=== PATIENT | female | born 1950 | race Caucasian/White ===

== ENCOUNTER 2023-06-25 11:10 | Outpatient (CLI) | payer MEDICARE, MEDICAID, SELFPAY ==
[2023-06-25 19:00] LABS: Alanine Aminotransferase 15 U/L (12-78); Albumin Level 4.4 g/dl (3.5-5.0); Albumin/Globulin Ratio 1.8 (1.1-1.8); Alkaline Phosphatase 70 U/L (38-126); Anion Gap 11.5 mEq/L (5-15); Aspartate Amino Transferase 27 U/L (14-36); Bilirubin,Total 0.4 mg/dl (0.2-1.3); Blood Urea Nitrogen 15 mg/dl (7-17); Calcium 9.5 mg/dl (8.4-10.2); Carbon Dioxide 29 mmol/L (22.0-30.0); Chloride 91 mmol/L (98-107); Estimated Glomerular Filt Rate 54 ml/min (>60); GFR (African American) 66 ML/MIN (>60); Globulin 2.5 g/dL (1.3-3.2); Glucose 94 mg/dl (74-100); Potassium 3.5 mmoL/L (3.5-5.1); Sodium 128 mmol/L (136-145); Total Protein,Serum 6.9 g/dl (6.3-8.2)
[2023-06-25 19:26] LABS: Thyroid Stimulating Hormone 0.98 uIU/mL (0.465-4.68)
== END 2023-06-25 23:59 | disposition home or self-care (01) ==
LOC: LAB.DROPOF 06-26 11:11
PROVIDERS: PCP Family Medicine; Visit Provider Family Medicine
DX: R30.0 Dysuria (principal); R53.83 Other fatigue
CPT/HCPCS: 80053; 84443

== ENCOUNTER 2023-12-21 10:12 | Outpatient (CLI) | payer MEDICARE, MEDICAID, SELFPAY | END 2023-12-21 23:59 | disposition home or self-care (01) | LOC: LAB.DROPOF 12-22 10:13 | PROVIDERS: PCP Nurse Practitioner; Visit Provider Nurse Practitioner | DX: A49.9 Bacterial infection, unspecified (principal); N39.0 Urinary tract infection, site not specified | CPT/HCPCS: 87086; 87088; 87186 ==

== ENCOUNTER 2024-01-29 09:27 | Outpatient (CLI) | payer MEDICARE, MEDICAID, SELFPAY ==
[2024-01-29 18:19] LABS: Basophils % 0.9 % (0.1-2.0); Eosinophils # 0.1 K/mm3 (0.0-0.4); Eosinophils % 2.5 % (0.1-12.0); Hematocrit 29.2 % (37.0-47.0); Hemoglobin 9.9 g/dL (12.2-16.2); Lymphocytes # 1.6 K/mm3 (0.7-4.5); Lymphocytes % 30.5 % (10-50); Mean Corpuscular Hemoglobin 25.5 pg (27.0-31.2); Mean Corpuscular Volume 75.2 fl (81-99); Mean Platelet Volume 7.3 fl (7.4-10.4); Monocytes # 0.4 K/mm3 (0.1-1.0); Monocytes % 8.2 % (1.7-9.3); Neutrophils # 2.9 K/mm3 (1.8-7.8); Neutrophils % 57.9 % (37.0-80.0); Platelet Count 442 K/mm3 (142-424); Red Blood Count 3.88 M/mm3 (4.20-5.40); Red Cell Distribution Width 15.1 % (11.5-17.5); White Blood Count 5.1 K/mm3 (4.8-10.8)
[2024-01-29 18:54] LABS: Alanine Aminotransferase 11 U/L (12-78); Albumin/Globulin Ratio 2.1 (1.1-1.8); Alkaline Phosphatase 50 U/L (38-126); Anion Gap 13.6 mEq/L (5-15); Aspartate Amino Transferase 21 U/L (14-36); Bilirubin,Total 0.4 mg/dl (0.2-1.3); Blood Urea Nitrogen 24 mg/dl (7-17); Calcium 8.6 mg/dl (8.4-10.2); Carbon Dioxide 28 mmol/L (22.0-30.0); Chloride 84 mmol/L (98-107); Estimated Glomerular Filt Rate 49 ml/min (>60); GFR (African American) 59 ML/MIN (>60); Globulin 1.9 g/dL (1.3-3.2); Glucose 85 mg/dl (74-100); Potassium 3.6 mmoL/L (3.5-5.1); Sodium 122 mmol/L (136-145); Total Protein,Serum 5.9 g/dl (6.3-8.2)
[2024-01-29 19:24] LABS: Thyroid Stimulating Hormone 1.29 uIU/mL (0.465-4.68)
== END 2024-01-29 23:59 | disposition home or self-care (01) ==
LOC: LAB.DROPOF 02-01 09:27
PROVIDERS: PCP Family Medicine; Visit Provider Family Medicine
DX: E03.9 Hypothyroidism, unspecified (principal); N39.0 Urinary tract infection, site not specified; A49.9 Bacterial infection, unspecified
CPT/HCPCS: 80053; 84443; 85025

== ENCOUNTER 2024-06-29 13:15 | Outpatient (CLI) | payer MEDICARE, MEDICAID, SELFPAY | END 2024-06-29 23:59 | disposition home or self-care (01) | LOC: LAB.DROPOF 06-30 09:43 | PROVIDERS: PCP Family Medicine; Visit Provider Family Medicine | DX: R30.0 Dysuria (principal); N39.0 Urinary tract infection, site not specified; B96.20 Unspecified Escherichia coli [E. coli] as the cause of diseases classified elsewhere | CPT/HCPCS: 87086; 87088; 87186 ==

== ENCOUNTER 2024-09-29 05:01 | Inpatient (IN) | payer MEDICARE, MEDICAID, SELFPAY ==
[2024-09-29] VITALS (11 sets, daily range): BP systolic 114–130; BP diastolic 63–75; PULSE 62–80; RESP 14–18; TEMP 36.6–36.9; O2SAT 96–100; BMI 25.2; BMI 24.3
--- NOTE | 2024-09-29 05:00 | ECG_ITS ---
APPROVED REPORT Exam: Resting ECG HR:71 bpm ECG Measurements Heart Rate 71 AXES ID 157 P 80 QRSd 94 QRS -14 QT 383 T 54 QTc 406 Conclusion SINUS RHYTHM MINIMAL ST DEPRESSION [0.025+ mV ST DEPRESSION] BORDERLINE ECG UNCONFIRMED REPORT Electronically signed by : BRADEN DELUCA, 09/30/2024 01:05:25
--- NOTE | 2024-09-29 05:04 | XR_ITS ---
PROCEDURE INFORMATION: Exam: XR Chest Exam date and time: 09/29/2024 5:21 AM Age: 74 years old Clinical indication: Pain; Chest pressure; Additional info: Cp TECHNIQUE: Imaging protocol: Radiologic exam of the chest. Views: 1 view. COMPARISON: No relevant prior studies available. FINDINGS: Lungs: Low lung volumes. No edema or consolidation. Pleural spaces: No significant pleural effusions. No pneumothorax. Heart/Mediastinum: Cardiac size is normal. Thoracic atherosclerosis. Bones/joints: No acute bony abnormalities. Osteopenia. Degenerative changes. IMPRESSION: No acute findings.
--- NOTE | 2024-09-29 05:04 | ED_ITS ---
Discharge Plan Disposition Patient Disposition: Admitted Prescriptions Prescriptions: No Action albuterol sulfate 90 mcg/actuation HFA aerosol inhaler 2 puff inhalation QID PRN (Reason: shortness of breath or wheezing) Qty: 8.5 10RF Rx Instructions: please provide spacer and instruct esomeprazole magnesium 40 mg capsule,delayed release(DR/EC) 40 mg PO DAILY Qty: 90 3RF estradiol [Estrace] 0.01 % (0.1 mg/gram) cream 1 appful vaginal DAILY Qty: 42.5 10RF Rx Instructions: for 14 days Trelegy Ellipta 100-62.5-25 mcg blister with device 1 inh inhalation DAILY Qty: 60 10RF levothyroxine 50 mcg capsule 50 mcg PO DAILY Qty: 90 3RF pregabalin 150 mg capsule 150 mg PO Q8H Qty: 90 5RF furosemide [Lasix] 40 mg tablet 40 mg PO DAILY Qty: 60 4RF fenofibrate 54 mg tablet 54 mg PO DAILY Qty: 90 3RF prochlorperazine maleate [Compazine] 10 mg tablet 10 mg PO Q8H PRN (Reason: nausea and vomiting) Qty: 30 0RF sulfamethoxazole-trimethoprim [Bactrim DS] 800-160 mg tablet 1 tab PO BID Qty: 20 0RF clonazepam 0.5 mg tablet 0.5 mg PO HS Qty: 30 0RF Rx Instructions: administer 30 minutes before bedtime ondansetron 4 mg tablet,disintegrating 4 mg PO Q8H PRN (Reason: nausea and vomiting) Qty: 30 0RF fluphenazine HCl 10 mg tablet 10 mg PO DAILY Qty: 90 3RF divalproex 500 mg tablet extended release 24 hr 500 mg PO DAILY Qty: 90 3RF fluconazole 150 mg tablet 150 mg PO Q3D Qty: 2 0RF Referrals Follow up/Referrals: Provider,Referral, MD [Primary Care Provider, Medical] - See instructions Clinical Impressions Clinical Impression: Hyponatremia, Chest pain at rest Schizophrenia Qualifiers: Schizophrenia type: unspecified Qualified Code(s): F20.9 - Schizophrenia, unspecified Print Language Print Language: Wallisian Discharge ED Provider: Bg Reyes General Adult HPI General Chief complaint: Chest Pain Stated complaint: Chest Pain Time Seen by Provider: 09/29/24 05:03 History of Present Illness HPI narrative: 74-year-old female with history of schizophrenia, prior MA, heart failure, COPD presents for chest pain. Chest pains been ongoing for the last 12 hours or so. Radiating to the right arm. Reports nausea but no vomiting. Reports that she has been taking her medications as prescribed. Related Data Previous Rx's ?Medication ?Instructions ?Recorded albuterol sulfate 90 mcg/actuation 2 puff inhalation Q ID PRN 01/29/24 aerosol inhaler shortness of breath or wheez ing #8.5 grams esomeprazole magnesium 40 mg 40 mg PO DAILY #90 caps 1 03/30/23 capsule,delayed release estradiol 0.01% (0.1 mg/gram) 1 appful vaginal DAILY # 42.5 grams 01/29/24 vaginal cream (Estrace) fluticasone fur. 100 mcg-umeclid 1 inh inhalation LAYA Y #60 ea 01/29/24 62.5 mcg-vilant 25 mcg inhalat.powder (Trelegy Ellipta) ondansetron 4 mg disintegrating 4 mg PO Q8H PRN nausea and 05/05/24 tablet vomiting #30 tabs clonazepam 0.5 mg tablet 0.5 mg PO HS #30 tabs fenofibrate 54 mg tablet 54 mg PO DAILY #90 tabs 06/08 05/31 furosemide 40 mg tablet (Lasix) 40 mg PO DAILY #60 tab s 06/29/24 levothyroxine 50 mcg capsule 50 mcg PO DAILY #90 caps 06/29/24 pregabalin 150 mg capsule 150 mg PO Q8H #90 caps 06/29 prochlorperazine maleate 10 mg 10 mg PO Q8H PRN nausea and 06/29/24 tablet (Compazine) vomiting #30 tabs sulfamethoxazole 800 1 tab PO BID #20 tabs mg-trimethoprim 160 mg tablet (Bactrim DS) divalproex 500 mg tablet,extended 500 mg PO DAILY #90 tabs 07/05/24 release 24 hr fluphenazine HCl 10 mg tablet 10 mg PO DAILY #90 tabs 07/05/24 fluconazole 150 mg tablet 150 mg PO Q3D 2 doses #2 tab s 08/12/24 Allergies Allergy/AdvReac Type Severity Reaction Status Date / Time acetaminophen (From Tylenol) Allergy Unknown Verified 06/29/24 13:10 ibuprofen Allergy Unknown Verified 06/29/24 13:10 Penicillins Allergy Unknown Verified 06/29/24 13:10 [facility] Disclaimer: The information contained in this section may have been updated after the patient was seen, as this information can be updated by other users. Medical History Schizophrenia Surgical History S/P LEVY (total abdominal hysterectomy) History of surgery on upper extremity History of surgery on lower extremity Hx of knee surgery History of back surgery Family History Other Diabetes Social History (Updated 06/29/24 @ 13:11 by Shi Ayon MA) Smoking Status: Current every day smoker alcohol intake: never current occupational status: other Travel in the last 8 weeks?: None Other Medical History Have you received the Pneumonia Vaccine: No ROS Obtained: Yes All systems reviewed & no additional complaints except as documented Physical Exam General General appearance: alert and in no apparent distress Head Head exam: atraumatic and normocephalic Eye Eye exam: Present normal appearance, PERRL and EOMI ENT ENT exam: Present normal oropharynx and normal external ear exam Neck Neck exam: Present normal inspection and full ROM Chest Chest inspection: Present normal inspection and symmetric chest wall rise; Absent tenderness Respiratory Respiratory exam: Present normal lung sounds bilaterally; Absent respiratory distress Cardiovascular Cardiovascular exam: Present regular rate and normal rhythm Abdominal Exam Abdominal exam: Present soft; Absent distention, tenderness or guarding Extremities Exam Extremities exam: Present normal inspection and edema; Absent joint swelling Back Exam Back exam: Present normal inspection; Absent tenderness Neurological Exam Neurological exam: Present alert and oriented X3; Absent motor sensory deficit Psychiatric Psychiatric exam: Present normal affect and normal mood Skin Skin exam: Present warm, dry and normal color Lymphatic Lymphatic Findings: no adenopathy Medical Decision Making Medical Records Medical records reviewed: Yes I reviewed the patient's medical records. Screening: Per USPSTF and CDC recommendations, given the prevalence of disease in our region, it is our hospital?s policy to screen for HIV and viral Hepatitis for all patients aged 18 and over and those with ongoing risk factors. Perez Inquiry Pt receiving controlled substance: No Perez was queried for this patient: No Vital Signs: 09/29/24 05:02 09/29/24 05:09 09/29/24 05:31 Temperature 97.9 F Temperature Source Oral Pulse Rate 71 66 Pulse Rate [Right Radial] 71 Respiratory Rate 16 16 Blood Pressure 114/63 Blood Pressure [Right Arm] 130/66 Blood Pressure Mean [Right Arm] 87 Blood Pressure Source [Right Arm] Automatic Cuff Blood Pressure Position [Right Arm] Supine 02 Sat by Pulse Oximetry 98 99 Oxygen Delivery Method Room Air Room Air Lab Data Lab results reviewed: Yes I reviewed the patient's lab results. Lab Results 09/29/24 05:00: WBC 6.9, RBC 3.62 L, Hgb 8.5 L, Hct 26.2 L, MCV 72.4 L, MCH 23.5 L, MCHC 32.4, RDW 16.3, Plt Count 443 H, MPV 8.8, Neut % (Auto) 61.7, Lymph % (Auto) 25.9, [place] % (Auto) 9.1, Eos % (Auto) 2.6, Baso % (Auto) 0.4, Neut # (Auto) 4.3, Lymph # (Auto) 1.8, [place] # (Auto) 0.6, Eos # (Auto) 0.2, Baso # (Auto) 0.0, D-Dimer 0.48, Sodium 115 L, Potassium 3.4 L, Chloride 82 L, Carbon Dioxide 27, Anion Gap 9.4, BUN 19 H, Creatinine 0.90, Estimated Creat Clear 44, Estimated GFR 61, Est GFR ( Amer) 74, Glucose 91, Calcium 8.7, Magnesium 1.1 L, Total Bilirubin 0.7, AST 23, ALT 11 L, Alkaline Phosphatase 61, Troponin I < 0.01, NT-Pro-B Natriuret Pep 644 H, Total Protein 6.4, Albumin 4.1, Globulin 2.3, Albumin/Globulin Ratio 1.8, Lipase 154 09/29/24 05:00 09/29/24 05:00 Orders (Tests/Meds): ED MEDICATIONS Discontinued Medications Generic Name Dose Route Start Last Admin Trade Name Freq PRN Reason Stop Dose Admin Belladonna Alkaloids 60 ml 09/29/24 05:04 09/29/24 05:07 Belladonna Alkaloids 60 Ml Ml PO 09/29/24 05:05 60 ml ONCE ONE Administration Furosemide 40 mg 09/29/24 05:44 09/29/24 05:54 Furosemide 40mg/4ml Vial IV 09/29/24 05:45 40 mg ONCE ONE Administration ORDERS Category Date Time Status CXR --portable [XR chest portable] Stat Exams 09/29/24 05:04 Taken BNP [NT Pro Brain Natriuretic Pep.] Stat Lab 09/29/24 05:00 Completed Basic Metabolic Panel Q6H Lab 09/29/24 11:00 Ordered Basic Metabolic Panel Q6H Lab 09/29/24 17:00 Ordered Basic Metabolic Panel Q6H Lab 09/29/24 23:00 Ordered CBC w/Auto Diff [Complete Blood Count Auto Diff] Stat Lab 09/29/24 05:00 Completed CMP [Comprehensive Metabolic Panel] Stat Lab 09/29/24 05:00 Completed Complete Blood Count Auto Diff AMLAB Lab 09/30/24 06:00 Ordered Comprehensive Metabolic Panel AMLAB Lab 09/30/24 06:00 Ordered D-Dimer Stat Lab 09/29/24 05:00 Completed HIV Combo Stat Lab 09/29/24 05:00 Received Hepatitis C Ab Qual. W/ RFX Stat Lab 09/29/24 05:00 Received Lipase Stat Lab 09/29/24 05:00 Completed Lipase Stat Lab 09/29/24 05:55 Ordered Magnesium Stat Lab 09/29/24 05:00 Completed Sodium,Urine Random Stat Lab 09/29/24 05:54 Ordered Troponin I Q3H Lab 09/29/24 05:00 Completed Troponin I Q3H Lab 09/29/24 08:15 Ordered ECG Data Tracing #1: I reviewed this ECG and interpreted as documented below: Sinus rhythm, rate of 71, no obvious ST elevation, though baseline artifact limits interpretation ECG initial impression date: 09/29/24 ECG initial impression time: 05:00 HEART Score History (anamnesis): Moderately suspicious ECG: Non-specific disturbance Age: >65 years Risk factors: Atherosclerosis history Troponin: </= normal limit HEART Score: 6 Medical Decision Narrative: 74-year-old female with history of schizophrenia, COPD, heart failure, coronary artery disease presents for chest pain for the last 12 hours. History was obtained via interactive discussion with patient, EMS. On arrival, patient is [afebrile, hemodynamically stable, satting appropriately, alert, oriented x4, GCS 15], moving all extremities spontaneously. Full physical exam performed and significant for bilateral lower extremity edema, clear lungs bilaterally Differential includes but is not limited to ACS, PE, COPD exacerbation, musculoskeletal chest pain, GERD. Patient reports she is unable to take aspirin or Tylenol. She was given GI cocktail without improvement. Workup initiated including CBC CMP troponin D- dimer chest x-ray EKG. On re-evaluation, patient reports continued chest pain Laboratory workup independently interpreted by me and significant for hyponatremia at 115. Negative initial troponin, negative D-dimer, mildly elevated BNP, normal renal. Imaging independently interpreted by me and significant for clear lungs bilaterally without pneumonia. See radiology read for full review of final results. Given patient history, exam and workup, patient's presentation most likely represents acute on chronic hyponatremia with hypervolemia, high risk chest pain with heart score of 6. Interactive discussion was had with hospitalist on-call for admission. Patient was given Lasix in ED.. Procedures Risk/Benefits of Procedure(s) Were Explained: Yes Critical Care Critical Care Time Critical Care Time: No
[2024-09-29] MEDS: BELLADONNA ALKALOIDS 60 ML ML PO (05:07)
--- OUTSIDE RECORDS SUMMARY | 2024-09-29 05:19 | XMS_ITS | Clinical Summary ---
Author Organization [facility] are Address [address] [place] [id number] Phone Care Team Providers Care Waiter/Waitress Name Role Phone Liz Parks APRN Primary Care Physician [ ] Conditions or Problems No information available. Medications No information available. Medications Administered No information available. Allergies, Adverse Reactions, Alerts No information available. Results No information available. Plan of Care No information available. Procedures No information available. Vital Signs No information available. Immunizations No information available. Advance Directives No information available.
--- OUTSIDE RECORDS SUMMARY | 2024-09-29 05:20 | XMS_ITS | Clinical Summary ---
Author Organization [facility] Address [address] [place] [address] Phone Care Team Providers Care Street Vendor Name Role Phone Gage Mcconnell MD, Kari NP Primary Care Provider [phone] Allergies Active Allergy Reactions Criticality Noted Date Comments Celecoxib Nausea And Vomiting 04/21/2014 Pt refuses. States it caused severe nausea and vomiting Ibuprofen Hives 05/24/2018 Penicillins Hives High Medications * This document contains information received from the source organization and may not represent a complete record from that organization. AMLODIPINE BESYLATE, BULK, MISC 2.5 mg by [facility] [place].(Non-Drug; Combo Route) route daily. Active fUROsemide (LASIX) 80 mg tablet Take 1 Tab by mouth daily. 30 Tab 5 3 Active levothyroxine (SYNTHROID) 50 mcg tablet TAKE 1 TABLET BY MOUTH DAILY 30 Tab 2 3 Active fluPHENAZine (PROLIXIN) 10 mg Oral TabletIndications :Paranoid schizophrenia (HCC),Schizoaffec tive disorder, unspecified type (HCC) Take 1 tablet by mouth at bedtime 30 Tab 5 6 Active ondansetron (ZOFRAN ODT) 4 mg Oral Tablet, Rapid Dissolve Take 1 Tab by mouth every 4 hours as needed for Nausea. 10 Tab 0 6 Active Additional Information Patient not taking.Reason: Therapy Completed, Reported on 08/16/2018 Walker Misc Misc Use walker as needed 1 Each 6 Active divalproex (DEPAKOTE) 500 mg Oral Tablet, Delayed Release (E.C.)Indications :Paranoid schizophrenia (HCC),Schizoaffec tive disorder, unspecified type (HCC) TAKE ONE TABLET BY MOUTH WITH FOOD EVERY NIGHT AT BEDTIME 30 Tab 6 Active gabapentin (NEURONTIN) 300 mg Oral Capsule Take by mouth 3 times daily. Reported on 04/21/2016 Active cyclobenzaprine (FLEXERIL) 5 mg Oral Tablet Take 1 Tab by mouth 3 times daily as needed for Muscle spasms for up to 10 doses. 10 Tab 7 Active Additional Information Patient not taking.Reason: Pt electing to not take the medication, Reported on 08/17/2018 esomeprazole (NEXIUM) 20 mg Oral Capsule, Delayed Release(E.C.)Sheryl cations:heartburn Take 20 mg by mouth daily. Active omeprazole (PRILOSEC) 20 mg Oral Capsule, Delayed Release(E.C.) Take by mouth every morning (before breakfast). Active pregabalin (LYRICA ORAL) Take by mouth 3 times daily. Active MELOXICAM ORAL Take by mouth. Active FENOFIBRATE ORAL Take by mouth daily. Active calcium carbonate/vitamin D3 (VITAMIN D-3 ORAL) Take by mouth daily. Active oxyCODONE-acetami nophen (PERCOCET) 5-325 mg Oral Tablet Take 1-2 Tabs by mouth every 6 hours as needed for Major Surgery/Trauma (G89.18). 12 Tab 9 Active nicotine (NICODERM CQ) 21 mg/24 hr TD Patch [address] 1 Patch onto the skin daily. 9 Active Active Problems Patient Care Coordination No te Formatting of this note migh t be different from the original. MIRELA [id number] 08/23/18 Problem Noted Date Diagnosed Date Spinal stenosis of thoracic region 08/18/2018 Hypokalemia 08/18/2018 Abnormal urinalysis 08/18/2018 Cigarette nicotine dependenc e with nicotine-induced disorder 08/18/2018 Hyponatremia 08/17/2018 Weakness of both lower extremities 08/17/2018 Resting tremor 08/17/2018 Chest pain 11/18/2010 Overview (11/18/2010): Normal GXT 10/2010 Hypothyroid Menorrhagia Schizophrenia Osteoarthritis Craig's esophagus Arthritis DDD (degenerative disc disease) Herniated disc Resolved Problems Problem Noted Date Diagnosed Date Resolved Date Otitis media 10/07/2011 10/28/2011 Immunizations Immunization Administration Dates Next Due Influenza Patient Reported 01/07/2009 Influenza Vaccine, Unspecified Formulation 12/19 Pneumococcal Conjugate Vaccine 13 Valent 019 Tdap 03/09/2006 Zoster 11/15/2008 Surgical History Surgery Date Site/Laterality Comments HYSTERECTOMY COLONOSCOPY [address] bai CHOLECYSTECTOMY THYROID SURGERY LUMBAR DISC SURGERY 04/17/2011 Spine Lumbar/N/A LUMBAR LAMINECTOMY L4-5 ; Surgeon: Jose Laguna MD; Location: [facility] MAIN OR; Service: Neurosurgery WRIST SURGERY 07/13/2014 Wrist/Left Hand/Left LEFT DISTAL RADIUS OPEN REDUCTION INTERNAL FIXATION LEFT CARPAL TUNNEL RELEASE.; Surgeon: Gage Blair MD; Location: [facility]; Service: Hand Medical devices from this surgery are in the Medical Devices section. CARPAL TUNNEL RELEASE 07/13/2014 Hand/Left Surgeon: Gage Blair MD; Location: [facility]; Service: Hand Medical devices from this surgery are in the Medical Devices section. THORACIC LAMINECTOMY 08/18/2018 N/A t9-t10 thoracic laminectomy discectomy; Surgeon: Markel Gutierrez MD; Location: [facility] MAIN OR; Service: Neurosurgery Medical History Medical History Date Comments Osteoarthritis Arthritis DDD (degenerative disc disease) Hypothyroid Screening mammogram 2 years ago Heartburn Pneumonia years ago Unspecified sleep apnea Hypertension CHF (congestive heart failure) (HCC) Liver disease Hepatitis as a child Seizures (HCC) last seizure as a child Chronic kidney disease Schizoaffective disorder, chronic condition (HCC ) Other disorders of kidney and ureter Family History Medical History Relation Name Comments Cancer Father Diabetes Father Heart Disease Father Kidney Disease Father Other Maternal Grandmother Heart Disease Maternal Uncle Other Mother osteoporosis Heart Disease Paternal Uncle Relation Name Status Comments Father Maternal Grandfather Maternal Grandmother Maternal Uncle Mother Alive Paternal Grandfather Paternal Grandmother Paternal Uncle Social History Tobacco Use Types Packs/Day Years Used Date Smoking Tobacco: Every Day Cigarettes 1 59.1 Started: 08/20/1965 Smokeless Tobacco: Never Tobacco Cessation:Ready to Q uit: No Alcohol Use Standard Drinks/Week Comments No 0 (1 standard drink = 0.6 oz pur e alcohol) Sexually Active Control Partners Comments Not Currently Comments No Sex and Gender Information Value Date Recorded Sex Assigned at Not on file Legal Sex Female 5:04 PM EDT Gender Identity Not on file Sexual Orientation Not on file Obstetrics History Last Filed Vital Signs Vital Sign Reading Time Taken Comments Blood Pressure 155/72 01/23/2023 11:26 PM EST Pulse 79 01/23/2023 11:26 PM EST Temperature 36.4 C (97.6 F) 01/23/2023 11:26 PM EST Respiratory Rate 20 01/23/2023 11:26 PM EST Oxygen Saturation 99% 01/23/2023 11:26 PM EST Inhaled Oxygen Concentration - - Weight 72.6 kg (160 lb) 01/23/2023 11:26 PM EST Height 149.9 cm (4' 11 ) 01/23/2023 11:26 PM EST Body Mass Index 32.32 01/23/2023 11:26 PM EST Plan of Treatment Health Maintenance Due Date Last Done Comments Wellness Exam Medicare 1953 Hepatitis C Screening 1968 Cologuard 05/10/1995 FIT 05/10/1995 Sigmoidoscopy 05/10/1995 Virtual Colonography 05/10/1995 Low Dose Lung Cancer Screening 2000 Zoster (2 of 3) 01/10/2009 11/15/2008 Breast Cancer Screening 03/05/2014 03/05/20 12, 10/24/2010, 11/22/2008, Additional history exists Colon Cancer Screening 12/07/2019 Colonoscopy 12/07/2019 12/06/2009 COVID-19 Vaccine ( season) 2023 04/24/2021, 07/31/2020, 07/03/2020 Influenza Vaccine (#1) 2024 8, 01/07/2017, 01/07/2017, Additional history exists DTaP/TDaP/Td (4 - Td or Tdap) 09/10/2027 09/09/2017, 01/22/2007, 03/09/2006 Bone Density Screening Completed 02/02/2018 Pneumococcal Vaccine 50+ Completed 019, 02/15/2018, 01/07/2017 Hepatitis B Vaccine Aged Out No longe r eligible based on patient's age to complete this topic Meningococcal B Vaccine Aged Out No l onger eligible based on patient's age to complete this topic Medical Devices Implanted Type Area Instructional Coach Device Identifier Shelf Expiration Date Model / Serial / Lot Screw Cancellous 4.0mm X 35mm Full Threaded With 2.5mm Hexag - [id number] Implanted:Qty: 1 on 04/21/2014 by Theo Casey MD at [facility] Left: Knee SYNTHES-STRATEC: PFSweb [id number] / / Screw Cancellous 4.0mm X 40mm Full Threaded With 2.5mm Hexag - [id number] Implanted:Qty: 1 on 04/21/2014 by Theo Casey MD at [facility] Left: Knee SYNTHES-STRATEC: PFSweb [id number] / / Bone Cancellous 30cc Chips - [id number] Implanted:Qty: 1 on 07/13/2014 by Gage Blair MD at [facility] Left: Wrist SYNTHES-STRATEC: PFSweb 07/31/2017 [id number] / / [id number] Plate Radius Distal Volar Va Lcp 2.4mm 2 Column Left 6 Hole - [id number] Implanted:Qty: 1 on 07/13/2014 by Gage Blair MD at [facility] Left: Wrist SYNTHES-STRATEC: PFSweb [id number] / / Screw Locking 2.4mm X 12mm Self Tapping With Stardrive Recess Stainless Steel - [id number] Implanted:Qty: 2 on 07/13/2014 by Gage Blair MD at [facility] Left: Wrist SYNTHES-STRATEC: PFSweb [id number] / / Screw Locking 1.8mm X 16mm Va Buttress Pin With T8 Stardrive Recess - [id number] Implanted:Qty: 1 on 07/13/2014 by Gage Blair MD at [facility] Left: Wrist SYNTHES-STRATEC: PFSweb [id number] / / Screw Locking 1.8mm X 18mm Va Buttress Pin With T8 Stardrive Recess - [id number] Implanted:Qty: 5 on 07/13/2014 by Gage Blair MD at [facility] Left: Wrist SYNTHES-STRATEC: SYNTHES [facility] / / Description:3 implanted and 2 implanted and explanted. Screw Locking 1.8mm X 20mm Va Buttress Pin With T8 Stardrive Recess - [id number] Implanted:Qty: 1 on 07/13/2014 by Gage Blair MD at [facility] Left: Wrist SYNTHES-STRATEC: SYNTHES [facility] 0 / / Procedures Procedure Name Priority Date/Time Associated Diagnosis Comments DX BONE DENSITY AXIAL SKELETON Routine 02/02/2018 10:55 AM EST Osteoporosis, unspecified osteoporosis type, unspecified pathological fracture presence MM MAMMO DIGITAL SCREENING W CAD BILAT Routine 03/05/2012 8:22 AM EST Other screening mammogram [facility]ED COLONOSCOPY Routine 12/06/2009 12:0 0 AM EDT from Last 3 Months or Most Recently Relevant to Health Maintenance Results * DX BONE DENSITY AXIAL SKELETON (02/02/2018 10:55 AM EST) Anatomical Region Laterality Modality Dexa Scan 02/02/2018 Narrative 02/04/2018 3:58 PM EST Indication: The patient is presently being monitored while on treatment and requires a bone density assessment. Study was performed on [employer]. Bone Density: Region BMD T-score Z-score Femoral Neck (Left) 0.639 -1.9 -0.2 Total Hip (Left) 0.685 -2.1 -0.7 Femoral Neck (Right) 0.771 -0.7 1.0 Total Hip (Right) 0.701 -2.0 -0.6 1/3 Radius (Right) 0.613 -1.3 0.5 World Health Organization criteria for BMD interpretation classify patients as: Normal (T-score at or above -1.0), Low Bone Density (T-score between -1.0 and -2.5), or Osteoporotic (T-score at or below -2.5). T Scores are reported in Postmenopausal women and in men age 50 and older. Z-scores are reported in females prior to menopause and in males younger than age 50. 10-year Fracture Risk: FRAX not reported because: Treated for osteoporosis Clinical Information Provided by Patient: Has had a low trauma fracture. Smokes. Is being treated for osteoporosis. Has taken a prescription medication that prevents/treats osteoporosis in the last year. Has used or is currently using the following medications: Vitamin D, Diuretic, Depo-medrixyprogesterone, Thyroid medication Has had or currently has the following medical conditions: Back pain, Hip pain, Vitamin D Insufficiency, Depression Patient maximum height was 59 Menopause Age: 46 Patient is postmenopausal Interpretation: Bone mineral density is in the low bone density range. Medical evaluation for secondary causes of low bone mineral density may be appropriate. A minimum of two years may be required between bone density studies due to inherent testing precision limitations. Intervals between BMD testing should be determined according to each patient's clinical status: typically one year after initiation or change in therapy is appropriate, with longer intervals once therapeutic effect is established. The spine portion of the study is omitted due to hypertrophic change. Reported by: Evita Llamas PA-C, CCD on 02/03/2018 11:29:00 AM. us Alyson Salas MD IMG DEXA ORDERABLES Final Resu lt * MM MAMMO DIGITAL SCREENING W CAD BILAT (03/05/2012 8:22 AM EST) Anatomical Region Laterality Modality Breast Bilateral Mammography 03/05/2012 1:12 PM EST Impressions 03/05/2012 1:53 PM EST : No radiographic evidence of malignancy ([id number]) ~ RECOMMENDATION: Routine screening mammogram in 1 year. ~ * The patient with a palpable abnormality, unexplained by breast imaging, should be managed on clinical basis by the attending physician. * Breast imaging has a false negative rate of 15%. * The patient was notified by mail of the results of this examination. *The patient's information was entered into a reminder system with a target due date for the next mammogram. The mammogram was reviewed by a Radiologist and CAD. Narrative 03/05/2012 1:53 PM EST Procedure:MM MAMMO DIGITAL SCREENING W CAD BILAT ~ Reason for exam: screening (asymptomatic). ~ MM MAMMO DIG SCREEN CAD BILAT Bilateral CC and MLO view(s) were taken. There are scattered fibroglandular densities. No significant change Compared to prior studies the most recent being 10-24-10 ~ Procedure Note Gage Reddy MD - 03/05/2012 Procedure:MM MAMMO DIGITAL SCREENING W CAD BILAT ~ Reason for exam: screening (asymptomatic). ~ MM MAMMO DIG SCREEN CAD BILAT Bilateral CC and MLO view(s) were taken. There are scattered fibroglandular densities. No significant change Compared to prior studies the most recent being 10-24-10 ~ IMPRESSION: No radiographic evidence of malignancy ([id number]) ~ RECOMMENDATION: Routine screening mammogram in 1 year. ~ * The patient with a palpable abnormality, unexplained by breast imaging, should be managed on clinical basis by the attending physician. * Breast imaging has a false negative rate of 15%. * The patient was notified by mail of the results of this examination. *The patient's information was entered into a reminder system with atarget due date for the next mammogram. The mammogram was reviewed by a Radiologist and CAD. Javier Shell MD IMG MAMMOGRAPHY ORDERABLES Fin al Result * GMED COLONOSCOPY (12/06/2009 12:00 AM EDT) 12/06/2009 Impressions [facility] - 03/10/2012 10:02 AM EST Normal mucosa in the whole colon and terminal ileum (biopsy) Otherwise normal colonoscopy to terminal ileum Narrative [facility] - 03/10/2012 10:02 AM EST Performing Provider: Abdi Clemons MD Referring Provider: Tahnh Cheatham M.D. Abdi Clemons MD GI PROCEDURE ORDERABLES Fi nal Result [facility] [address] [address] from Last 3 Months or Most Recently Relevant to Health Maintenance Insurance [place] Member Subscriber Plan / Payer (Ef fective 2020-Present) Name:Loretta Trejowild Calles Relation to Subscriber:Self Name:Loretta Trejonnfiordaliza Calles Payer ID:Not on file Group ID:Not on file Type:Not on file Address: [address] MEDICARE ADVANTAGE HMO-POS * Guarantor: Destinee Trejo Account Type Relation to Patient Date of Phone Billing Address [place] Personal Family Self Advance Directives For more information, please contact: [phone] * Full Code (Latest Code Status on File) Date Activated Date Inactivated Comments 08/20/2018 11:21 AM 08/24/2018 9:07 PM * Full Code Date Activated Date Inactivated Comments 08/18/2018 5:30 PM 08/18/2018 9:01 PM * Full Code Date Activated Date Inactivated Comments 08/17/2018 10:22 PM 08/18/2018 5:30 PM * Full Code Date Activated Date Inactivated Comments 08/17/2018 7:29 PM 08/17/2018 10:[address] Vendor Relationship Specialty Start Date End Date Sarah Beth Cardoso NP [address] [place] [address] PCP - General Nurse Practitioner-Family 06/24/22 Gage Mcconnell MD Psychiatry & Neurology-Psychiatry 10/28/11
--- OUTSIDE RECORDS SUMMARY | 2024-09-29 05:20 | XMS_ITS | Encounter Summary ---
Author Organization [facility] Address [address] [place] [address] Care Team Providers Care Office Helper Name Role Phone Provider, Generic External Data Unavailable Unavailable Sarah Beth Cardoso NP Unavailable [phone] Shila Olson RN Unavailable Unavailable Sarah Beth Cardoso NP Primary Care Provider [phone] Reason for Visit * Reason Comments Medications Refill Encounter Details Date Type Department Care Team (Late st Contact Info) Description 07/23/2022 Refill [facility] Physicians - Primary Care, Ayde Hess [address], [place] [address] Sarah Beth Cardoso NP [address] [place] [address] [place] [address] Medications Refill Social History Tobacco Use Types Packs/Day Years Used Date Smoking Tobacco: Every Day Cigarettes 1 49.6 Started: 03/09/1975 Smokeless Tobacco: Never Alcohol Use Standard Drinks/Week Comments No 0 (1 standard drink = 0.6 oz pur e alcohol) PHQ-2 Answer Date Recorded PHQ-9 Auto Total 0 10/30/2021 Comments No Sex and Gender Information Value Date Recorded Sex Assigned at Not on file Legal Sex Female 5:20 PM EST Gender Identity Not on file Sexual Orientation Not on file documented as of this encounter Miscellaneous Notes * Telephone Encounter - Kimberlee Patrick MA - 07/23/2022 3:24 PM EDT Requested Prescriptions Pending Prescriptions Disp Refills ??? divalproex (DEPAKOTE) 500 mg Tablet Sustained Release 24 hr [Pharmacy Med Name: DIVALPROEX SOD ER 500 MG TA 500 Tablet] 90 Tablet 0 Sig: TAKE 1 TABLET (500 MG TOTAL) BY MOUTH DAILY. Last Office Visit:Apr 30-ck up Next Office Visit:10/31/2022-mpe Pending labs on file- Yes pended documented in this encounter Plan of Treatment Not on file documented as of this encounter Visit Diagnoses Diagnosis Vitamin D deficiency- Primary Schizophrenia, unspecified type Thyroid disease Unspecified disorder of thyroid Borderline hyperlipidemia Other and unspecified hyperlipidemia Osteoarthritis, unspecified osteoarthritis type, unspecified site Elevated serum creatinine Other nonspecific findings on examination of blood Thrombocytosis Essential thrombocythemia documented in this encounter Additional Health Concerns Assessment Noted Time PHQ-9 Depression Total Score: 1 10/31/19 2:37 PM EDT documented as of this encounter Care Teams Office Helper Relationship Specialty Start Date End Date Sarah Beth Cardoso NP [address] [place] [address] PCP - General Nurse Practitioner, Family 09/06/21 08/04/23 Provider, Generic External Data 08/13/20 Sarah Beth Cardoso NP [address] [place] [address] Nurse Practitioner Nurse Practitioner, Family 08/17/20 Shila Olson, RN Registered Nurse 10/01/20 documented as of this encounter
--- OUTSIDE RECORDS SUMMARY | 2024-09-29 05:20 | XMS_ITS | Encounter Summary ---
Author Organization [facility] Address [address] [place] [address] Care Team Providers Care Health And Safety Representative Name Role Phone Provider, Generic External Data Unavailable Unavailable Sarah Beth Cardoso NP Unavailable [phone] Shila Olson RN Unavailable Unavailable Sarah Beth Cardoso NP Primary Care Provider [phone] Reason for Visit * Reason Comments Medications Refill Encounter Details Date Type Department Care Team (Late st Contact Info) Description 04/15/2022 Refill [facility] Physicians - Primary Care, Ayde Hess [address], [place] [address] Sarah Beth Cardoso NP [address] [place] [address] [place] [address] Medications Refill Social History Tobacco Use Types [...] encounter Miscellaneous Notes * Telephone Encounter - Elida Lee RMA - 04/15/2022 5:37 PM EST Requested Prescriptions Pending Prescriptions Disp Refills ??? divalproex (DEPAKOTE) 500 mg Tablet Sustained Release 24 hr [Pharmacy Med Name: DIVALPROEX SOD ER 500 MG TA 500 Tablet] 90 Tablet 2 Sig: TAKE 1 TABLET (500 MG TOTAL) BY MOUTH DAILY. Last PE or Check up-10/30/2021 MPE Next PE or Check up-04/30/2022 6 MONTH F/U Pending labs on file- Yes documented in this encounter Plan of Treatment Not on file documented as of this encounter Visit Diagnoses Diagnosis Schizophrenia, unspecified type documented in this encounter Additional Health Concerns Assessment Noted Time PHQ-9 Depression Total Score: 1 10/31/19 2:37 PM EDT documented as of this encounter Care Teams Health And Safety Representative Relationship Specialty Start Date End Date Sarah Beth Cardoso NP [address] [facility], [place] [id number] PCP - General Nurse Practitioner, Family 09/06/21 08/04/23 Provider, Generic External Data 08/13/20 Sarah Beth Cardoso NP [address] [facility] [place] [address] Nurse Practitioner Nurse Practitioner, Family 08/17/20 Shila Olson, RN Registered Nurse 10/01/20 documented as of this encounter
--- OUTSIDE RECORDS SUMMARY | 2024-09-29 05:20 | XMS_ITS | Encounter Summary ---
Author Organization [facility] Address [address] [place] [address] Care Team Providers Care Director Clinical Research Name Role Phone Salome Naylor NP Primary Care Provider Unavailab le Provider, Generic External Data Unavailable Unavailable Sarah Beth Cardoso NP Unavailable [phone] Shila Olson RN Unavailable Unavailable Sarah Beth Cardoso NP Primary Care Provider [phone] Reason for Visit * Reason Comments Medications Refill Encounter Details Date Type Department Care Team (Late st Contact Info) Description 08/12/2020 Refill [facility] Physicians - Primary Care, Ayde Hess [address] [place] [address] Salome Naylor NP Medications Refill Social History Tobacco Use Types Packs/Day Years Used Date Smoking Tobacco: Every Day Cigarettes Smokeless Tobacco: Never Alcohol Use Standard Drinks/Week Comments No 0 (1 standard drink = 0.6 oz pur e alcohol) PHQ-2 Answer Date Recorded PHQ-2 Score 0 05/12/2019 Comments No Sex and Gender Information Value Date Recorded Sex Assigned at Not on file Legal Sex Female 5:20 PM EST Gender Identity Not on file Sexual Orientation Not on file COVID-19 Exposure Response Date Recorded In the last month, have you been in contact with someone who was confirmed or suspected to have Coronavirus / COVID-19? No / Unsure 08/13/2020 4:35 PM EDT documented as of this encounter Miscellaneous Notes * Telephone Encounter - Salome Naylor NP - 08/14/2020 10:52 AM EDT Needs a new CSA at next week isak reviewed * Telephone Encounter - Twila Jon RMA - 08/14/2020 10:26 AM EDT ISAK ON YOUR DESK * Telephone Encounter - Pippa Levin - 08/14/2020 8:46 AM EDT Isak 3 Narcotic agreement signed on 08.21.17 Last UDS 05.21.18 Last refill date 10.22.18 Last Appt/ Type Acute June, check up Nov, - Due Next Appt/Type August 17 - acute Labs on file no documented in this encounter Plan of Treatment Not on file documented as of this encounter Visit Diagnoses Diagnosis Myopathy Myopathy, unspecified Neuropathy Mononeuritis of unspecified site documented in this encounter Additional Health Concerns Assessment Noted Time PHQ-9 Depression Total Score: 1 05/12/19 20 10:37 AM EST documented as of this encounter Care Teams Director Clinical Research Relationship Specialty Start Date End Date Salome Naylor NP PCP - General Nurse Practitioner, Family 06/30/18 09/05/21 Sarah Beth Cardoso NP [address] [place] [place] [address] [place] [address] PCP - General Nurse Practitioner, Family 09/06/21 08/04/23 Provider, Generic External Data 08/13/20 Sarah Beth Cardoso NP [address] [facility] [address] Nurse Practitioner Nurse Practitioner, Family 08/17/20 Shila Olson, RN Registered Nurse 10/01/20 documented as of this encounter
--- OUTSIDE RECORDS SUMMARY | 2024-09-29 05:20 | XMS_ITS | Encounter Summary ---
Author Organization [facility] Address [address] [place] [address] Care Team Providers Care College Or University Department Head Name Role Phone Provider, Generic External Data Unavailable Unavailable Sarah Beth Cardoso WELFARE INTERVIEWER Unavailable [phone] Shila Olson RN Unavailable Unavailable Sarah Beth Cardoso NP Primary Care Provider [phone] Reason for Visit * Reason Comments Medications Refill Encounter Details Date Type Department Care Team (Late st Contact Info) Description 10/23/2022 Refill [facility] Physicians - Primary Care, [place]de [place] [address], [place] [address] Sheron Cox MD Medications Refill Social History Tobacco Use Types [...] encounter Miscellaneous Notes * Telephone Encounter - Twila Jon RMA - 10/23/2022 4:06 PM EDT Requested Prescriptions Pending Prescriptions Disp Refills ??? furosemide (LASIX) 40 mg tablet [Pharmacy Med Name: FUROSEMIDE 40 MG TAB 40 Tablet] 90 Tablet 2 Sig: TAKE 1 TABLET (40 MG TOTAL) BY MOUTH DAILY. Last Office Visit:Apr 30-CK UP Next Office Visit: 10-31-22- Pending labs on file- Yes documented in this encounter Plan of Treatment Not on file documented as of this encounter Visit Diagnoses Diagnosis Bilateral leg edema Edema documented in this encounter Additional Health Concerns Assessment Noted Time PHQ-9 Depression Total Score: 1 10/31/19 22 2:37 PM EDT documented as of this encounter Care Teams College Or University Department Head Relationship Specialty Start Date End Date Sarah Beth Cardoso, WELFARE INTERVIEWER [address] [place], [place] [id number] PCP - General Nurse Practitioner, Family 09/06/21 08/04/23 Provider, Generic External Data 08/13/20 Sarah Beth Cardoso, WELFARE INTERVIEWER [address] [facility] [place] [address] Nurse Practitioner Nurse Practitioner, Family 08/17/20 Shila Olson, RN Registered Nurse 10/01/20 documented as of this encounter
--- OUTSIDE RECORDS SUMMARY | 2024-09-29 05:20 | XMS_ITS | Encounter Summary ---
Author Organization [facility] Address [address] [place] [address] Care Team Providers Care Town Planner Name Role Phone Thanh Cheatham MD Primary Care Provider [phone] Salome Naylor NP Primary Care Provider Unavailab le Provider, Generic External Data Unavailable Unavailable Sarah Beth Cardoso NP Unavailable [phone] Shila Olson RN Unavailable Unavailable Sarah Beth Cardoso NP Primary Care Provider [phone] Encounter Details Date Type Department Care Team (Late st Contact Info) Description 09/13/2014 Orders Only Laboratory [address], [place] [address] Pippa Gordon [address] [place] [id number] Encounter for long-term (current) use of other medications (Primary Dx) Social History Tobacco Use Types Packs/Day Years Used Date Smoking Tobacco: Every Day Cigarettes Smokeless Tobacco: Never Alcohol Use Standard Drinks/Week Comments No 0 (1 standard drink = 0.6 oz pur e alcohol) Comments No Sex and Gender Information Value Date Recorded Sex Assigned at Not on file Legal Sex Female 5:20 PM EST Gender Identity Not on file Sexual Orientation Not on file documented as of this encounter Plan of Treatment Not on file documented as of this encounter Results * VALPROIC ACID, FREE (09/13/2014 8:11 PM EDT) Valproic Acid, Free 10.7 4.8 - 17.3 mg/L [facility] Comment: Note: Non-linear drug binding properties result in the fraction of Free Valproic Acid increasing as total drug increases. The free fraction may range from 5% to 25% for the total drug range of 30-160 mg/L. Test performed at [facility]/[address] [address] ANNA LENZ MD,PHD Serum 09/13/2014 8:11 PM EDT 09/16/2014 4:48 AM EDT us Referring Nonstaff MD HEMATOLOGY ORDERABLES Jaida l Result Performing Organization Address City/State/[facility] Co de Phone Number [facility] [address] documented in this encounter Visit Diagnoses Diagnosis Encounter for long-term (current) use of other medications- Primary documented in this encounter Care Teams Town Planner Relationship Specialty Start Date End Date Thanh Cheatham MD PCP - General Family Medicine 04/28/12 06/29/18 Salome Naylor NP PCP - General Nurse Practitioner, Family 06/30/18 09/05/21 Sarah Beth Cardoso NP [address] [place] [address] PCP - General Nurse Practitioner, Family 09/06/21 08/04/23 Provider, Generic External Data 08/13/20 Sarah Beth Cardoso NP [address] [place] [address] Nurse Practitioner Nurse Practitioner, Family 08/17/20 Shila Olson, RN Registered Nurse 10/01/20 documented as of this encounter
--- OUTSIDE RECORDS SUMMARY | 2024-09-29 05:20 | XMS_ITS | Encounter Summary ---
Author Organization [facility] Address [address] [place] [address] Care Team Providers Care Flight Dispatcher Name Role Phone Provider, Generic External Data Unavailable Unavailable Sarah Beth Cardoso NP Unavailable [phone] Shila Olson RN Unavailable Unavailable Sarah Beth Cardoso NP Primary Care Provider [phone] Reason for Visit * Reason Comments Medications Refill Encounter Details Date Type Department Care Team (Late st Contact Info) Description 09/16/2022 Refill [facility] Physicians - Primary Care, [place] [address] [place] [address] Sarah Beth Cardoso NP [address] [facility] [place] [address] Medications Refill Social History Tobacco Use Types [...] encounter Miscellaneous Notes * Telephone Encounter - Sarah Beth Cardoso NP - 09/16/2022 4:02 PM EDT Images from the original note were not included. Duplicate request - this is early Cancelled and will RX in alt encounter tomorrow when appropriate September 12, 2022 Me ?? 09/12/22 ??1:48 PM Note ?? RX early - last 06/21/2022 for 90 days Will RX Thursday (2d early) Needs UDS and CSA at next fill * Telephone Encounter - Kimberlee Patrick MA - 09/16/2022 3:17 PM EDT Requested Prescriptions Pending Prescriptions Disp Refills ??? 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 Neuropathy Mononeuritis of unspecified site documented in this encounter Additional Health Concerns Assessment Noted Time PHQ-9 Depression Total Score: 1 10/31/19 22 2:37 PM EDT documented as of this encounter Care Teams Flight Dispatcher Relationship Specialty Start Date End Date Sarah Beth Cardoso NP [address] [place] [address] PCP - General Nurse Practitioner, Family 09/06/21 08/04/23 Provider, Generic External Data 08/13/20 Sarah Beth Cardoso NP [address] [facility] [address] Nurse Practitioner Nurse Practitioner, Family 08/17/20 Shila Olson, RN Registered Nurse 10/01/20 documented as of this encounter
--- OUTSIDE RECORDS SUMMARY | 2024-09-29 05:20 | XMS_ITS | Encounter Summary ---
Author Organization [facility] Address [address] [place] [address] Care Team Providers Care Career Services Manager Name Role Phone Provider, Generic External Data Unavailable Unavailable Sarah Beth Cardoso NP Unavailable [phone] Shila Olson RN Unavailable Unavailable Sarah Beth Cardoso NP Primary Care Provider [phone] Reason for Visit * Reason Comments Medications Refill Encounter Details Date Type Department Care Team (Late st Contact Info) Description 12/18/2021 Refill [facility] Physicians - Primary Care, [place] [address] [place] [address] Suly Nichols, SENIOR COMPENSATION ANALYST [address] [place] [address] Medications Refill Social History Tobacco Use Types [...] Encounter - Sarah Beth Cardoso NP - 12/27/2021 1:28 PM EDT RF now appropriate, sent to pharm PDMP Report has been generated and reviewed by Suly Nichols APRN for this patient on 12/27/2021 * Telephone Encounter - Christine Toth - 12/26/2021 10:48 AM EDT Patient will be out tomorrow * Telephone Encounter - Sarah Beth Cardoso NP - 12/18/2021 9:36 PM EDT RF early, last 09/27 for 90 days * Telephone Encounter - Twila Jon RMA - 12/18/2021 1:40 PM EDT Requested Prescriptions Pending Prescriptions Disp Refills ??? 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 [facility] [place] [address] Nurse Practitioner Nurse Practitioner, Family 08/17/20 Shila Olson, RN Registered Nurse 10/01/20 documented as of this encounter
--- OUTSIDE RECORDS SUMMARY | 2024-09-29 05:20 | XMS_ITS | Encounter Summary ---
Author Organization [facility] Address [address] [place] [address] Care Team Providers Care Rod Finisher Name Role Phone Provider, Generic External Data Unavailable Unavailable Sarah Beth Cardoso NP Unavailable [phone] Shila Olson RN Unavailable Unavailable Sarah Beth Cardoso NP Primary Care Provider [phone] Reason for Visit * Reason Comments Medications Refill Encounter Details Date Type Department Care Team (Late st Contact Info) Description 09/01/2022 Refill [facility] Physicians - Primary Care, [place] [address], [place] [address] Sarah Beth Cardoso NP [address] [place] [address] Medications Refill Social History Tobacco Use Types [...] Telephone Encounter - Kimberlee Patrick MA - 09/01/2022 5:06 PM EDT Requested Prescriptions Pending Prescriptions Disp Refills ??? albuterol (VENTOLIN/PROAIR/PROVENTIL HFA) 90 mcg/actuation HFA Aerosol Inhaler [Pharmacy Med Name: ALBUTEROL SULFATE HFA 108 ( 108 (90 BAS Aerosol] 8.5 g 2 Sig: TAKE 2 PUFFS BY INHALATION EVERY 6 HOURS NEEDED FOR WHEEZING (SHORTNESS OF BREATH). Last Office Visit:Apr 30-ck up Next Office Visit:10/31/2022-mpe Pending labs on file- Yes documented in this encounter Plan of Treatment Not on file documented as of this encounter Visit Diagnoses Diagnosis Chronic obstructive pulmonary disease, unspecified COPD type ([facility]) documented in this encounter Additional Health Concerns Assessment Noted Time PHQ-9 Depression Total Score: 1 10/31/19 2:37 PM EDT documented as of this encounter Care Teams Rod Finisher Relationship Specialty Start Date End Date Sarah Beth Cardoso NP [address] [place] [address] PCP - General Nurse Practitioner, Family 09/06/21 08/04/23 Provider, Generic External Data 08/13/20 Sarah Beth Cardoso NP [address] [place] [address] Nurse Practitioner Nurse Practitioner, Family 08/17/20 Shila Olson, RN Registered Nurse 10/01/20 documented as of this encounter
--- OUTSIDE RECORDS SUMMARY | 2024-09-29 05:20 | XMS_ITS | Encounter Summary ---
Author Organization [facility] Address [address] [place] [address] Care Team Providers Care Brush Hand Name Role Phone Provider, Generic External Data Unavailable Unavailable Sarah Beth Cardoso DISTRICT MANAGER IN TRAINING Unavailable [phone] Shila Olson RN Unavailable Unavailable Sarah Beth Cardoso NP Primary Care Provider [phone] Reason for Visit * Reason Comments Medications Refill Encounter Details Date Type Department Care Team (Late st Contact Info) Description 10/23/2022 Refill [facility] Physicians - Primary Care, [place] [address] [place] [address] Sarah Beth Cardoso NP [address] [place] [address] Medications Refill Social History Tobacco Use Types [...] encounter Miscellaneous Notes * Telephone Encounter - Dontrell TwilaEDGAR mac - 10/23/2022 3:53 PM EDT Requested Prescriptions Pending Prescriptions Disp Refills ??? divalproex (DEPAKOTE) 500 mg Tablet Sustained Release 24 hr [Pharmacy Med Name: DIVALPROEX SOD ER 500 MG TA 500 Tablet] 90 Tablet 0 Sig: TAKE 1 TABLET (500 MG TOTAL) BY MOUTH DAILY. ??? esomeprazole (NEXIUM) 40 mg Capsule, Delayed Release(E.C.) [Pharmacy Med Name: ESOMEPRAZOLE MAGNESIUM 40 M 40 Capsule] 90 Capsule 1 Sig: TAKE 1 CAPSULE (40 MG) BY MOUTH EVERY MORNING (BEFORE BREAKFAST). Last Office Visit:Apr 30-CK UP Next Office Visit:10/31/2022-PE Pending labs on file- YES documented in this encounter Plan of Treatment Not on file documented as of this encounter Visit Diagnoses Diagnosis Schizophrenia, unspecified type documented in this encounter Additional Health Concerns Assessment Noted Time PHQ-9 Depression Total Score: 1 10/31/19 2:37 PM EDT documented as of this encounter Care Teams Brush Hand Relationship Specialty Start Date End Date Sarah Beth Cardoso NP [address] [facility] [address] PCP - General Nurse Practitioner, Family 09/06/21 08/04/23 Provider, Generic External Data 08/13/20 Sarah Beth Cardoso NP [address] [facility] [address] Nurse Practitioner Nurse Practitioner, Family 08/17/20 Shila Olson, RN Registered Nurse 10/01/20 documented as of this encounter
--- OUTSIDE RECORDS SUMMARY | 2024-09-29 05:20 | XMS_ITS | Encounter Summary ---
Author Organization [facility] Address [address] [place] [address] Care Team Providers Care Drill Rig Operator Name Role Phone Thanh Cheatham MD Primary Care Provider [phone] Salome Naylor NP Primary Care Provider Unavailab le Provider, Generic External Data Unavailable Unavailable Sarah Beth Cardoso NP Unavailable [phone] Shila Olson RN Unavailable Unavailable Sarah Beth Cardoso NP Primary Care Provider [phone] Reason for Visit * Reason Comments Medications Refill Encounter Details Date Type Department Care Team (Late st Contact Info) Description 10/05/2017 Refill [facility] Physicians - Primary Care [place] [address] [place], [place] [id number] Thanh Cheatham MD [place] [id number] Medications Refill Social History Tobacco Use Types [...] encounter Miscellaneous Notes * Telephone Encounter - Hui Perdomo, [facility] - 10/07/2017 9:48 AM EDT Last seen 01/07/17 Next appt 11/23/17 Last filled Meloxicam 04/13/17+5 Levthyroxin 07/08/17+4 Divalproex 01/07/17+3 documented in this encounter Plan of Treatment Not on file documented as of this encounter Visit Diagnoses Diagnosis Encounter for immunization Need for other specified prophylactic vaccination against single bacterial disease Hypothyroidism, unspecified type Thyroid disease Unspecified disorder of thyroid Craig's esophagus with dysplasia Craig's esophagus Schizophrenia, unspecified type Osteoarthritis, unspecified osteoarthritis type, unspecified site Borderline hyperlipidemia Other and unspecified hyperlipidemia documented in this encounter Additional Health Concerns Assessment Noted Time PHQ-9 Depression Total Score: 1 05/30/19 17 2:02 PM EDT documented as of this encounter Care Teams Drill Rig Operator Relationship Specialty Start Date End Date Thanh Cheatham MD PCP - General Family Medicine 04/28/12 06/29/18 Salome Naylor NP PCP - General Nurse Practitioner, Family 06/30/18 09/05/21 Sarah Beth Cardoso NP [address] [place] [address] PCP - General Nurse Practitioner, Family 09/06/21 08/04/23 Provider, Generic External Data 08/13/20 Sarah Beth Cardoso NP [address] [place] [address] Nurse Practitioner Nurse Practitioner, Family 08/17/20 Shila Olson, RN Registered Nurse 10/01/20 documented as of this encounter
--- OUTSIDE RECORDS SUMMARY | 2024-09-29 05:20 | XMS_ITS | Clinical Summary ---
Author Organization [facility] Address [address] [place] [address] Care Team Providers Care Doctor Of Pharmacy Name Role Phone Unavailable Primary Care Provider Unavailabl e Social History Tobacco Use Types Packs/Day Years Used Date Smoking Tobacco: Every Day Comments Unknown Sex and Gender Information Value Date Recorded Sex Assigned at Not on file Legal Sex Female 8:29 PM EDT Gender Identity Not on file Sexual Orientation Not on file Last Filed Vital Signs Vital Sign Reading Time Taken Comments Blood Pressure - - Pulse - - Temperature - - Respiratory Rate - - Oxygen Saturation - - Inhaled Oxygen Concentration - - Weight 67.8 kg (149 lb 6.1 oz) 06/01/2015 9:52 A M EDT Height 149.9 cm (4' 11 ) 06/01/2015 9:52 AM EDT Body Mass Index 30.17 06/01/2015 9:52 AM EDT Plan of Treatment Not on file
--- OUTSIDE RECORDS SUMMARY | 2024-09-29 05:20 | XMS_ITS | Encounter Summary ---
Author Organization [facility] Address [address] [place] [address] Care Team Providers Care Railway Switch Operator Name Role Phone Provider, Generic External Data Unavailable Unavailable Sarah Beth Cardoso NP Unavailable [phone] Shila Olson RN Unavailable Unavailable Sarah Beth Cardoso NP Primary Care Provider Reason for Visit * Reason Comments Medications Refill Encounter Details Date Type Department Care Team (Late st Contact Info) Description 03/21/2022 Refill [facility] Physicians - Primary Care, [place] [address] [place] [id number] Sarah Beth Cardoso NP [address] [facility] [place] [address] Medications Refill Social History Tobacco Use Types [...] Encounter - Sarah Beth Cardoso NP - 03/25/2022 3:08 PM EST RF appropriate - last 12/27/2021 for 90 days Needs CSA/UDS at upcoming appt * Telephone Encounter - JonatanPippa zamarripa - 03/25/2022 2:43 PM EST Requested Prescriptions Pending Prescriptions Disp Refills ??? 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 Neuropathy Mononeuritis of unspecified site documented in this encounter Additional Health Concerns Assessment Noted Time PHQ-9 Depression Total Score: 1 10/31/19 22 2:37 PM EDT documented as of this encounter Care Teams Railway Switch Operator Relationship Specialty Start Date End Date Sarah Beth Cardoso NP [address] [place] [place] [address] PCP - General Nurse Practitioner, Family 09/06/21 08/04/23 Provider, Generic External Data 08/13/20 Sarah Beth Cardoso NP [address] [place] [place] [address] Nurse Practitioner Nurse Practitioner, Family 08/17/20 Shila Olson, RN Registered Nurse 10/01/20 documented as of this encounter
--- OUTSIDE RECORDS SUMMARY | 2024-09-29 05:20 | XMS_ITS | Encounter Summary ---
Author Organization [facility] Address [address] [place] [address] Care Team Providers Care Manager Costing Name Role Phone Salome Naylor NP Primary Care Provider Unavailab le Provider, Generic External Data Unavailable Unavailable Sarah Beth Cardoso COVER MARKER Unavailable [phone] Shila Olson RN Unavailable Unavailable Sarah Beth Cardoso NP Primary Care Provider [phone] Reason for Visit * Reason Comments Medications Refill Encounter Details Date Type Department Care Team (Late st Contact Info) Description 04/18/2021 Refill [facility] Physicians - Primary Care, [place] [address] [place] [address] Salome Naylor NP Medications Refill Social History Tobacco Use Types Packs/Day Years Used Date Smoking Tobacco: Every Day Cigarettes 1 49.6 Started: 03/09/1975 Smokeless Tobacco: Never Alcohol Use Standard Drinks/Week Comments No 0 (1 standard drink = 0.6 oz pur e alcohol) PHQ-2 Answer Date Recorded PHQ-9 Auto Total 0 09/28/2020 Comments No Sex and Gender Information Value Date Recorded Sex Assigned at Not on file Legal Sex Female 5:20 PM EST Gender Identity Not on file Sexual Orientation Not on file COVID-19 Exposure Response Date Recorded In the last month, have you been in contact with someone who was confirmed or suspected to have Coronavirus / COVID-19? No / Unsure 03/20/2021 2:54 PM EST documented as of this encounter Miscellaneous Notes * Telephone Encounter - Shania Marvin Joan - 04/19/2021 8:50 AM EST albuterol (Ventolin HFA) 90 mcg/actuation HFA Aerosol Inhaler [[id number]] ?? Order Details Dose: 2 Puff Route: Inhalation Frequency: 4 TIMES DAILY Dispense Quantity: 18 g Refills: 0 ?? Sig: Take 2 Puffs by inhalation 4 times daily. ?? Start Date: 09/28/20 End Date: -- Written Date: 09/28/20 Expiration Date: 09/28/21 Last PE or Check up-09/28/2020 Medicare ?? Next PE or Check up-05/03/2021 PE ?? Pending labs on file- Yes ?? documented in this encounter Plan of Treatment Not on file documented as of this encounter Visit Diagnoses Diagnosis Chronic obstructive pulmonary disease, unspecified COPD type ([facility]) documented in this encounter Additional Health Concerns Assessment Noted Time PHQ-9 Depression Total Score: 1 09/29/19 21 3:02 PM EDT documented as of this encounter Care Teams Manager Costing Relationship Specialty Start Date End Date Salome Naylor NP PCP - General Nurse Practitioner, Family 06/30/18 09/05/21 Sarah Beth Cardoso NP [address] [place] [address] PCP - General Nurse Practitioner, Family 09/06/21 08/04/23 Provider, Generic External Data 08/13/20 Sarah Beth Cardoso NP [address] [facility] [address] Nurse Practitioner Nurse Practitioner, Family 08/17/20 Shila Olson, RN Registered Nurse 10/01/20 documented as of this encounter
--- OUTSIDE RECORDS SUMMARY | 2024-09-29 05:20 | XMS_ITS | Clinical Summary ---
Author Organization [facility] Address [address] [place] [address] Care Team Providers Care Corset Maker Name Role Phone Provider, Generic External Data Unavailable Unavailable Sarah Beth Cardoso POLICE OFFICER CRIME PREVENTION Unavailable [phone] Shila Olson RN Unavailable Unavailable Allergies Active Allergy Reactions Criticality Noted Date Comments Cotrim Nausea And Vomiting 08/16/2015 Celecoxib Nausea And Vomiting 08/16/2015 Ibuprofen Swelling,Hives 11/23/2017 Penicillins Swelling,Rash Medium 05/27/2012 Medications calcium carbonate-vitamin D3 1,000 mg-20 mcg (800 unit) Tablet Ac tive fluticasone-umecli din-vilanter (Trelegy Ellipta) 100-62.5-25 mcg Disk with DeviceIndications: Chronic obstructive pulmonary disease, unspecified COPD type ([facility]) Take 1 Puff by inhalation daily. 60 Each 5 3 Active albuterol (VENTOLIN/PROAIR/P ROVENTIL HFA) 90 mcg/actuation HFA Aerosol InhalerIndications :Chronic obstructive pulmonary disease, unspecified COPD type ([facility]) TAKE 2 PUFFS BY INHALATION EVERY 6 HOURS NEEDED FOR WHEEZING (SHORTNESS OF BREATH). 8.5 g 3 Active Cholecalciferol, Vitamin D3, 25 mcg (1,000 unit) TabletIndications: Age-related osteoporosis with current pathological fracture with routine healing, subsequent encounter TAKE 1 TABLET (25 MCG) BY MOUTH DAILY. 90 Tablet 1 3 Active esomeprazole (NexIUM) 40 mg Capsule, Delayed Release(E.C.) Take 1 Capsule (40 mg) by mouth every morning (before breakfast). 90 Capsule 4 Active Vitamin D 25 mcg (1,000 unit) CapsuleIndications :Vitamin D deficiency,Age-rel ated osteoporosis with current pathological fracture with routine healing, subsequent encounter TAKE 1 CAPSULE BY MOUTH DAILY 30 Capsule 3 4 Active furosemide (LASIX) 40 mg tabletIndications: Bilateral leg edema Take 1 Tablet (40 mg) by mouth daily. 90 Tablet 4 Active divalproex (DEPAKOTE XR) 500 mg Tablet Sustained Release 24 hrIndications:Schi zophrenia, unspecified type Take 1 Tablet (500 mg) by mouth daily. 90 Tablet 4 Active levothyroxine (SYNTHROID) 50 mcg tabletIndications: Thyroid disease Take 1 Tablet (50 mcg) by mouth daily. 90 Tablet 4 Active valACYclovir (VALTREX) 1 gram tabletIndications: Pain of scalp,Rash and nonspecific skin eruption Take 1 Tablet (1,000 mg) by mouth 3 times daily. 21 Tablet 4 Active fluPHENAZine (PROLIXIN) 10 mg tabletIndications: Schizophrenia, unspecified type Take 1 Tablet by mouth once daily. 30 Tablet 1 4 Active Fenofibrate 54 mg TabletIndications: Borderline hyperlipidemia Take 1 Tablet by mouth once daily. 30 Tablet 4 Active Active Problems Problem Noted Date Diagnosed Date Neuropathy 11/11/2021 NSAID long-term use 11/11/2021 Thrombocytosis 11/05/2021 Elevated serum creatinine 11/05/2021 Age-related osteoporosis wit h current pathological fracture with routine healing, subsequent encounter 09/28/2020 Chronic pain disorder 09/28/2020 Class 1 obesity 09/28/2020 Failed back surgical syndrome 09/28/2020 Cigarette nicotine dependenc e with nicotine-induced disorder 08/18/2018 COPD (chronic obstructive pulmonary disease) ([facility]) 06/30/2018 Vitamin D deficiency 06/30/2018 Long-term use of high-risk medication 06/30/2018 Generalized anxiety disorder 08/21/2017 Borderline hyperlipidemia 01/07/2017 Osteoarthritis Schizophrenia Craig's esophagus DDD (degenerative disc disease) Thyroid disease Overview (05/27/2012): Hypothyroid Resolved Problems Problem Noted Date Diagnosed Date Resolved Date Acute UTI 02/12/2023 01/23/2023 03/26/2023 Overview (02/12/2023): Presents to ER for urinary retention since 3pm bladder scan reveals 25mL, water given, sample was provided, appears infected. Started on keflex, culture sent by [facility] ER. Chest pain 07/01/2018 Overview (12/08/2016): Replaced inactive diagnosis via diagnosis import Immunizations Immunization Administration Dates Next Due Influenza 02/15/2018, 7,01/25/2016,01/07,12/19/2009,01/10/2008,01/23/20 07 Influenza (intradermal) 01/18/2013 Influenza (whole) 03/06/2014,12/20/2011 03/06/20 15 Influenza, Preservative & Eg g Free, Trivalent Flucelvax (6mos-64yrs) 01/07/2017,01/25/2016,03/06/2014 Pneumococcal Conjugate 13 va lent (PREVNAR) 08/17/2018,02/15/2018 Pneumococcal Polysaccharide 23 Valent (PNEUMOVAX) 01/07/2017 SARS-Cov-2 Vaccine Red Top 1 2+yrs Old (MODERNA) 04/24/2021,07/31/2020,07/03/2020 Tdap 09/09/2017,01/22/2007,03/09/2006 Zoster-LZV(Zostavax) 11/15/2008 Family History Medical History Relation Name Comments Diabetes Father Heart Problems Father Relation Name Status Comments Brother Alive Daughter Alive Father Mother Alive Sister Alive Son 1 Alive Son 2 Alive Social History Tobacco Use Types Packs/Day Years Used Date Smoking Tobacco: Every Day Cigarettes 1 49.6 Started: 03/09/1975 Smokeless Tobacco: Never Tobacco Cessation:Ready to Q uit: No; Counseling Given: Yes Alcohol Use Standard Drinks/Week Comments No 0 [...] Sign Reading Time Taken Comments Blood Pressure 136/70 05/11/2023 10:44 AM EST Pulse 78 05/11/2023 10:44 AM EST Temperature 36.8 C (98.2 F) 05/11/2023 10:44 AM EST Respiratory Rate 16 05/31/2021 9:51 AM EDT Oxygen Saturation 94% 05/11/2023 10:44 AM EST Inhaled Oxygen Concentration - - Weight 60.8 kg (134 lb) 05/11/2023 10:44 AM EST Height 147.3 cm (4' 10 ) 05/11/2023 10:44 AM EST Body Mass Index 28.01 05/11/2023 10:44 AM EST Plan of Treatment Health Maintenance Due Date Last Done Comments Cologuard 1950 FIT 1950 Tobacco Cessation Counseling 1962 Zoster-RZV(Shingrix) (1 of 2) 01/10/2009 RSV Vaccines (1 - Risk 60-74 years 1-dose series) 2010 Colonoscopy 12/06/2014 12/06/2009 Colorectal Cancer Screening 12/06/2014 Breast Cancer Screening 09/28/2016 09/29/19 15, 01/21/2013, 03/05/2012 Fall Risk Assessment 10/30/2022 10/30/2021, 05/12/2019, 02/15/2018, Additional history exists Osteoporosis Screening 02/02/2023 8, 02/02/2018, 09/28/2014, Additional history exists Lipid Monitoring 04/30/2023 04/30/2022, , 05/03/2021, Additional history exists Urine Drug Screening 11/01/2023 10/31/2022, 08/21/2017, 05/29/2016 COVID-19 Vaccine (2023-04 5 season) 2023 04/24/2021, 07/31/2020, 07/03/2020 Advance Care Planning 03/09/2024 10/30/2021 Depression Screening 03/09/2024 10/30/2021, 09/28/2020, 05/12/2019, Additional history exists Influenza Vaccination (#1) 11/07/202402/15, 01/07/2017, 01/07/2017, Additional history exists Tetanus Vaccination (Every 1 0 Years) 09/10/2027 09/09/2017, 01/22/2007, 03/09/2006 Influenza Vaccination (Yearly) Discontinued 1 04/18/2017, 01/07/2017, 01/07/2017, Additional history exists Pneumococcal Vaccine: 50+ Years Completed 08/17/2018, 02/15/2018, 01/07/2017 Hepatitis C Virus (HCV) Screening Completed 019 Advance Care Planning Discontinued 10/30/2021 Lipid Screening Discontinued 04/30/2022, 10/08, 05/03/2021, Additional history exists Procedures Procedure Name Priority Date/Time Associated Diagnosis Comments UDS FOR COMPLIANCE MONITORING OF CONTROLLED SUBSTANCES Routine 10/31/2022 2:38 PM EDT Encounter for long-term (current) use of high-risk medication LIPID PROFILE Routine 04/30/2022 2:43 PM EST Borderline hyperlipidemia HEPATITIS C AB WITH REFLEX TO HCV,RNA,QUANT PCR Routine 10/22/2018 3:51 PM EDT Need for hepatitis C screening test [id number] SCAN AXIAL SKELETON Routine 02/02/2018 10:55 AM EST MAMM-SCREENING DIRECT DIGITAL Routine 09/28/2014 10:37 AM EDT Other screening mammogram EXTERNAL COLONOSCOPY - SEE COMMENT Routine 12/06/2009 from Last 3 Months or Most Recently Relevant to Health Maintenance Results * (ABNORMAL) UDS FOR COMPLIANCE MONITORING OF CONTROLLED SUBSTANCES (10/31/2022 2:38 PM EDT) Prescribed Drug 1 Pregabalin [facility] EXTERNAL LAB Comment: The value Pregabalin/Lyrica originally released by IF on 10/31/2022 14:38 was changed to Pregabalin by [employer] on 10/31/2022 21:06 Prescribed Drug 2 Pregabalin T EXTERNAL LAB Creatinine, Ur 1.0(L) > or = 20.0 mg/dL [facility] Comment:Verified by repeat a nalysis. Specific Chappell, UA 1.000(L) > or = 1.003 [facility] Comment:Verified by repeat a nalysis. PH, Urine Drug Screen 6.7 4.5 - 9.0 [facility] Comment: Healthcare Providers needing interpretation assistance, please contact a [facility] Toxicolocy Specialist at ([phone]). M-F 8am-6pm EST. Oxidant NEGATIVE <200 mcg/mL [facility] Comment: Test performed at [employer] [place] [address] SAYRA FRENCH M.D. Amphetamines,Screen NEGATIVE <500 ng/mL [facility] Barbiturates,Screen NEGATIVE <300 ng/mL [facility] Benzodiazepines,Scr een NEGATIVE <100 ng/mL [facility] Marijuana,Screen NEGATIVE <20 ng/mL [facility] Cocaine, Screen NEGATIVE <150 ng/mL [facility] Methadone,Screen NEGATIVE <100 ng/mL [facility] Opiate,Screen NEGATIVE <100 ng/mL [facility] Oxycodone,Screen NEGATIVE <100 ng/mL [facility] Buprenorphine, Screen NEGATIVE <5 ng/mL [facility] NOTE SEE NOTE [facility] IMPLEMENTATION COORDINATOR AL LAB Comment: This drug testing is for medical treatment only. Analysis was performed as non-forensic testing and these results should be used only by healthcare providers to render diagnosis or treatment, or to monitor progress of medical conditions. Pregabalin Notes: Pregabalin detected is consistent with the use of the drug Pregabalin. LDT Notes: Confirmation tests were developed and their analytical performance characteristics have been determined by [employer]. It has not been cleared or approved by the FDA. This assay has been validated pursuant to the CLIA regulations and is used for clinical purposes. medMATCH(R) enables providers to identify if drug use is consistent or inconsistent with a corresponding prescribed medication(s) list. Healthcare Providers needing Interpretation assistance, please contact us at [phone] ( ) M-F, 8am to 10pm EST Test performed at [employer] [address] [address] ANDREW DUNBAR No previous value was reported. A value of SEE NOTE was entered by IF on 11/05/2022 01:06 Fentanyl, Ur NEGATIVE <0.5 ng/mL [facility] EXTERNAL LAB 6-Acetylmorphine Screen NEGATIVE <10 ng/mL [facility] EXTERNAL [facility] medMatch Summary SEE NOTE [facility] EXTER[facility] Comment: Specimen Validity ABNORMAL Prescribed Prescribed Not Prescribed Consistent Inconsistent Inconsistent Lyrica(TM) Pregabalin Urine 10/31/2022 2:38 PM EDT 11/05/2022 1:06 AM EDT us Sarah Beth Cardoso NP URINE ORDERABLES Edited Resul t - Final [facility] EX[facility] [address] * (ABNORMAL) LIPID PROFILE (04/30/2022 2:43 PM EST) Chol/HDL Ratio 3.0 0 - 5 [facility] XTERNAL LAB Cholesterol 166 125 - 199 mg/dL [facility] EXTERNAL LAB Comment: TOTAL CHOLESTEROL INTERPRETATION: Less than 200 mg/dL Desireable 200-239 mg/dL Borderline Greater or Equal to 240 mg/dL High LDL Calculated 68 0 - 100 mg/dL [facility] EXTERNAL LAB Comment: LDL CHOLESTEROL INTERPRETATION: Less than 100 mg/dL Optimal 100-129 mg/dL Near optimal/above optimal 130-159 mg/dL Borderline High 160-189 mg/dL High Greater or Equal to 190 mg/dL Very High HDL 55 40 - 180 mg/dL [facility] EX[facility] Comment: HDL CHOLESTEROL INTERPRETATION: Less than 40 mg/dL Low Greater than 60 mg/dL Desirable Triglycerides 216(H) 0 - 149 mg/dL [facility] EXTERNAL LAB Comment: TOTAL TRIGLYCERIDE INTERPRETATION: Less than 150 mg/dL Normal 150-199 mg/dL Borderline HIgh 200-499 mg/dL High Greater or Equal to 500 mg/dL Very High Serum (Serum) 04/30/2022 2:4 3 PM EST 04/30/2022 11:29 PM EST us Sarah Beth Cardoso POLICE OFFICER CRIME PREVENTION CHEMISTRY ORDERABLES Final Re sult Performing Organization Address [facility] Co de Phone Number [facility] EXTERNAL [facility] [address] * HEPATITIS C AB WITH REFLEX TO HCV,RNA,QUANT PCR (10/22/2018 3:51 PM EDT) HCV Qual Interp Nonreactive Nonreactive [facility] EX[facility] Comment:IgG and IgM anti-HCV not detected. Signal/Cutoff 0.08 0.00 - 0.79 S/CO [facility] EX[facility] Serum 10/22/2018 3:51 PM EDT 10/22/2018 8:03 PM EDT us Salome Naylor POLICE OFFICER CRIME PREVENTION HEMATOLOGY ORDERABLES Final Resu lt Performing Organization Address [facility] de Phone Number [facility] [address] * [id number] SCAN AXIAL SKELETON (02/02/2018 10:55 AM EST) 02/02/2018 10:[address] [facility] - 02/04/2018 3:58 PM EST Indication: The patient is presently being monitored while on treatment and requires a bone density assessment. Study was performed on Leanplum 5. Bone Density: Region BMD T-score Z-score [...] Llamas PA-C, CCD on 02/03/2018 11:29:00 AM. Procedure Note Provider, Kain - 02/04/2018 Indication: The patient is presently being monitored while on treatmentand requires a bone density assessment. Study was performed on Teamly APEX 5. Bone Density: Region BMD T-score Z-score [...] or change in therapy is appropriate, with longerintervals once therapeutic effect is established. The spine portion of the study is omitted due to hypertrophic change. Reported by: Evita Llamas PA-C, CCD on 02/03/2018 11:29:00 AM. us External Provider [facility] IMG RESULTS ONLY Final Result Performing Organization Address City/[facility]/ZIP Co de Phone Number [facility] * MAMM-SCREENING DIRECT DIGITAL (09/28/2014 10:37 AM EDT) Anatomical Region Laterality Modality Bilateral Mammography Impressions 09/28/2014 3:39 PM EDT No evidence of malignancy. BI-RADS: 2 Recommend return in one year for bilateral mammography. /mr Narrative 09/28/2014 3:39 PM EDT 09/28/2014 SCREENING MAMMOGRAPHY: Compared to 2012 and priors. Scattered fibroglandular densities are present, unchanged. Benign calcifications are present bilaterally. No new suspicious masses or grouped calcifications are demonstrated on the right or left. Procedure Note Shreyas Elise MD - 09/28/2014 09/28/2014 SCREENING MAMMOGRAPHY: Compared to 2013 and priors. Scattered fibroglandular densities are present, unchanged. Benigncalcifications are present bilaterally. No new suspicious masses orgrouped calcifications are demonstrated on the right or left. IMPRESSION: No evidence of malignancy. BI-RADS: 2 Recommend return in one year for bilateral mammography. /mr us Thanh Cheatham MD IMG MAMMO ORDERABLES Final Res ult * EXTERNAL COLONOSCOPY - SEE COMMENT (12/06/2009) us Historical Provider DC IMAGING Final Result [facility] [address] [place] [id number] from Last 3 Months or Most Recently Relevant to Health Maintenance Insurance [facility] MEDICARE Care Teams Corset Maker Relationship Specialty Start Date End Date Provider, Generic External Data 08/13/20 Sarah Beth Cardoso NP [address] [place] [address] Nurse Practitioner Nurse Practitioner, Family 08/17/20 Shila Olson, RN Registered Nurse 10/01/20
--- OUTSIDE RECORDS SUMMARY | 2024-09-29 05:20 | XMS_ITS | Encounter Summary ---
Author Organization [facility] Address [address] [place] [address] Care Team Providers Care Candy Cooker Helper Name Role Phone Salome Naylor NP Primary Care Provider Unavailab le Provider, Generic External Data Unavailable Unavailable Sarah Beth Cardoso NP Unavailable [phone] Shila Olson RN Unavailable Unavailable Sarah Beth Cardoso NP Primary Care Provider [phone] Reason for Visit * Reason Onset Date Comments Medications Refill Medications Refill 08/10/2020 Encounter Details Date Type Department Care Team (Late st Contact Info) Description 07/19/2020 Refill [facility] Physicians - Primary Care, [place] [address] [place] [address] Salome Naylor NP Medications Refill; Medications Refill Social History Tobacco Use Types [...] have Coronavirus / COVID-19? No / Unsure 06/29/2020 10:17 AM EDT documented as of this encounter Plan of Treatment Not on file documented as of this encounter Visit Diagnoses Diagnosis Bad odor of urine Other nonspecific finding on examination of urine Leukocytes in urine Other nonspecific finding on examination of urine documented in this encounter Additional Health Concerns Assessment Noted Time PHQ-9 Depression Total Score: 1 05/12/19 20 10:37 AM EST documented as of this encounter Care Teams Candy Cooker Helper Relationship Specialty Start Date End Date Salome Naylor NP PCP - General Nurse Practitioner, Family 06/30/18 09/05/21 Sarah Beth Cardoso NP [address] [facility], [place] [id number] PCP - General Nurse Practitioner, Family 09/06/21 08/04/23 Provider, Generic External Data 08/13/20 Sarah Beth Cardoso NP [address] [facility], [place] [id number] Nurse Practitioner Nurse Practitioner, Family 08/17/20 Shila Olson, RN Registered Nurse 10/01/20 documented as of this encounter
--- OUTSIDE RECORDS SUMMARY | 2024-09-29 05:20 | XMS_ITS | Encounter Summary ---
Author Organization [facility] Address [address] [place] [address] Care Team Providers Care Insurance Defense Paralegal Name Role Phone Provider, Generic External Data Unavailable Unavailable Sarah Beth Cardoso NP Unavailable [phone] Shila Olson RN Unavailable Unavailable Sarah Beth Cardoso NP Primary Care Provider [phone] Reason for Visit * Reason Comments Medications Refill Encounter Details Date Type Department Care Team (Late st Contact Info) Description 10/26/2021 Refill [facility] Physicians - Primary Care, [place] [address] [place] [address] Salome Naylor NP Medications Refill [...] encounter Miscellaneous Notes * Telephone Encounter - Pippa Levin - 10/27/2021 7:12 PM EDT Requested Prescriptions Pending Prescriptions Disp Refills ??? meloxicam (MOBIC) 15 mg tablet [Pharmacy Med Name: MELOXICAM 15 MG TABS 15 Tablet] 90 Tablet 1 Sig: TAKE 1 TABLET (15 MG TOTAL) BY MOUTH DAILY. Last Office Visit:May 31 check up Next Office Visit:Visit date not found-pe Oct, this week Pending labs on file- Yes PLEASE CALL AND REMIND HER TO DO LABS, APPT IS THURSDAY documented in this encounter Plan of Treatment Not on file documented as of this encounter Visit Diagnoses Diagnosis Osteoarthritis, unspecified osteoarthritis type, unspecified site documented in this encounter Additional Health Concerns Assessment Noted Time PHQ-9 Depression Total Score: 1 09/29/19 21 3:02 PM EDT documented as of this encounter Care Teams Insurance Defense Paralegal Relationship Specialty Start Date End Date Sarah Beth Cardoso NP [address] [facility], [place] [id number] PCP - General Nurse Practitioner, Family 09/06/21 08/04/23 Provider, Generic External Data 08/13/20 Sarah Beth Cardoso NP [address] [facility], [place] [id number] Nurse Practitioner Nurse Practitioner, Family 08/17/20 Shila Olson, RN Registered Nurse 10/01/20 documented as of this encounter
--- OUTSIDE RECORDS SUMMARY | 2024-09-29 05:20 | XMS_ITS | Encounter Summary ---
Author Organization [place] [address] Care Team Providers Care Layout Worker Name Role Phone Javier Shell MD Primary Care Provider [phone] Gage Mcconnell MD [facility] Thanh Gonzalez MD Primary Care Provider [phone] Sarah Beth Cardoso NP Primary Care Provider [phone] Encounter Details Date Type Department Care Team (Late st Contact Info) Description 12/05/2010 Orders Only SEP Gastro CV [address] [facility] Building [address] [place] [id number] Abdi Clemons MD Social History Tobacco Use Types Packs/Day Years [...] on file documented as of this encounter Procedures Procedure Name Priority Date/Time Associated Diagnosis Comments GMED EGD Routine 12/05/2010 12:00 AM EDT documented in this encounter Results * GMED EGD (12/05/2010 12:00 AM EDT) Ext EGD Report [facility]PGASTRO 12/05/2010 Impressions [facility]O - 12/06/2010 6:20 AM EDT Mucosa suggestive of short segment Craig's esophagus (biopsy) Small hiatal hernia (dilation) Otherwise normal EGD to second part of the duodenum Narrative SEPTNSTRO - 12/06/2010 6:20 AM EDT Performing Provider: Abdi Clemons MD Referring Provider: Javier Shell MD Abdi Clemons MD GI PROCEDURE ORDERABLES Fi nal Result [address] [place] [address] documented in this encounter Visit Diagnoses Not on filedocumented in this encounter Additional Health Concerns Infection Onset Date Last Indicated Resolved Time 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 05/19/2011 06/13/2015 8:15 AM E DT documented as of this encounter Care Teams Layout Worker Relationship Specialty Start Date End Date Javier Shell MD [facility] [place] [id number] PCP - General 09/02/10 08/01/12 Thanh Cheatham MD [address] [place] [address] [place] [id number] PCP - General Family Medicine 08/02/12 06/23/22 Sarah Beth Cardoso NP [address] [place], [place] [id number] PCP - General Nurse Practitioner-Family 06/24/22 Gage Mcconnell MD [facility] [place] [address] Psychiatry & Neurology-Psychiatry 10/28/11 documented as of this encounter
--- OUTSIDE RECORDS SUMMARY | 2024-09-29 05:20 | XMS_ITS | Encounter Summary ---
Author Organization [facility] Address [address] [place] [address] Care Team Providers Care Tightening Machine Operator Name Role Phone Provider, Generic External Data Unavailable Unavailable Sarah Beth Cardoso ARBORIST REPRESENTATIVE Unavailable [phone] Shila Olson RN Unavailable Unavailable Sarah Beth Cardoso NP Primary Care Provider [phone] Reason for Visit * Reason Comments Medications Refill Encounter Details Date Type Department Care Team (Late st Contact Info) Description 12/25/2022 Refill [facility] Physicians - Primary Care, [place] [address] [place] [id number] Sarah Beth Cardoso NP [address] [facility] [place] [address] [place] [address] Medications Refill Social History Tobacco Use Types [...] Telephone Encounter - Kimberlee Patrick MA - 12/26/2022 7:51 AM EDT Requested Prescriptions Pending Prescriptions Disp Refills ??? fluPHENAZine (PROLIXIN) 10 mg tablet [Pharmacy Med Name: FLUPHENAZINE HCL 10 MG TABS 10 Tablet]90 Tablet 1 Sig: TAKE 1 TABLET (10 MG TOTAL) BY MOUTH DAILY. ??? Cholecalciferol, Vitamin D3, 25 mcg (1,000 unit) Tablet [Pharmacy Med Name: VITAMIN D3 25 MCG (1000 UT) 25 MCG Tablet] 90 Tablet 1 Sig: TAKE 1 TABLET (25 MCG) BY MOUTH DAILY. Last Office Visit:Nov 12 Next Office Visit:01/05/2023-mpe Pending labs on file- Yes documented in this encounter Plan of Treatment Not on file documented as of this encounter Visit Diagnoses Diagnosis Schizophrenia, unspecified type Age-related osteoporosis with current pathological fracture with routine healing, subsequent encounter documented in this encounter Additional Health Concerns Assessment Noted Time PHQ-9 Depression Total Score: 1 10/31/19 22 2:37 PM EDT documented as of this encounter Care Teams Tightening Machine Operator Relationship Specialty Start Date End Date Sarah Beth Cardoso NP [address] [facility], [place] [id number] PCP - General Nurse Practitioner, Family 09/06/21 08/04/23 Provider, Generic External Data 08/13/20 Sarah Beth Cardoso NP [address] [place] [address] Nurse Practitioner Nurse Practitioner, Family 08/17/20 Shila Olson, RN Registered Nurse 10/01/20 documented as of this encounter
--- OUTSIDE RECORDS SUMMARY | 2024-09-29 05:20 | XMS_ITS | Encounter Summary ---
Author Organization [facility] Address [address] [place] [address] Care Team Providers Care Security Team Lead Name Role Phone Provider, Generic External Data Unavailable Unavailable Sarah Beth Cardoso NP Unavailable Shila Olson RN Unavailable Unavailable Reason for Visit * Reason Comments Medications Refill Encounter Details Date Type Department Care Team (Late st Contact Info) Description 08/05/2023 Refill [facility] Physicians - Primary Care, [place] [address] [place] [address] Sarah Beth Cardoso NP [address] [facility] [place] [address] Medications Refill Social History Tobacco Use Types [...] encounter Miscellaneous Notes * Telephone Encounter - Nini Santos - 08/05/2023 1:30 PM EDT Called patient to schedule overdue MPE. Patient states she got another doctor. Removed PCP of Sarah Beth Cardoso * Telephone Encounter - Beth Ashraf MD - 08/05/2023 12:47 PM EDT * Telephone Encounter - Twila Jon RMA - 08/05/2023 12:36 PM EDT Requested Prescriptions Pending Prescriptions Disp Refills pregabalin (LYRICA) 150 mg Capsule [Pharmacy Med Name: PREGABALIN 150 MG CAPS 150 Capsule] 90 Capsule 1 Sig: Take 1 Capsule (150 mg) by mouth 3 times daily. 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
--- OUTSIDE RECORDS SUMMARY | 2024-09-29 05:20 | XMS_ITS | Encounter Summary ---
Author Organization [facility] Address [address] [place] [address] Care Team Providers Care Rn Medical Surgical Name Role Phone Thanh Cheatham MD Primary Care Provider [phone] Salome Naylor NP Primary Care Provider Unavailab le Provider, Generic External Data Unavailable Unavailable Sarah Beth Cardoso NP Unavailable [phone] Shila Olson RN Unavailable Unavailable Sarah Beth Cardoso NP Primary Care Provider [phone] Reason for Visit * Reason Comments Medications Refill Encounter Details Date Type Department Care Team (Late st Contact Info) Description 11/18/[address] [facility] Physicians - Primary Care, [place] [address] [place], [place] [id number] [place] [address] Medications Refill Social History Tobacco Use Types [...] documented as of this encounter Visit Diagnoses Not on filedocumented in this encounter Care Teams Rn Medical Surgical Relationship Specialty Start Date End Date Thanh Cheatham MD PCP - General Family Medicine 04/28/12 06/29/18 Salome Naylor NP PCP - General Nurse Practitioner, Family 06/30/18 09/05/21 Sarah eBth Cardoso NP [address] [facility] [place] [address] PCP - General Nurse Practitioner, Family 09/06/21 08/04/23 Provider, Generic External Data 08/13/20 Sarah Beth Cardoso, ANIA [address] [facility] [place] [address] Nurse Practitioner Nurse Practitioner, Family 08/17/20 Shila Olson, RN Registered Nurse 10/01/20 documented as of this encounter
--- OUTSIDE RECORDS SUMMARY | 2024-09-29 05:20 | XMS_ITS | Encounter Summary ---
Author Organization [facility] Address [address] [place] [address] Care Team Providers Care Plc Controls Engineer Name Role Phone Salome Naylor NP Primary Care Provider Unavailab le Provider, Generic External Data Unavailable Unavailable Sarah Beth Cardoso NP Unavailable [phone] Shila Olson RN Unavailable Unavailable Sarah Beth Cardoso NP Primary Care Provider [phone] Reason for Visit * Reason Comments Medications Refill Encounter Details Date Type Department Care Team (Late st Contact Info) Description 05/29/[address] [facility] Physicians - Primary Care, [place] [address] [place] [address] Salome Naylor NP Medications Refill [...] or suspected to have Coronavirus / COVID-19? Unable to assess 05/14/2020 9:01 AM EST documented as of this encounter Miscellaneous Notes * Telephone Encounter - Salome Naylor NP - 05/30/2020 11:45 AM EDT This comes from Dr. Alyson Salas * Telephone Encounter - Arnaud Aguirre RMA - 05/30/2020 7:56 AM EDT Perez To LP for review lrf 04/30/ like usually gets from Dr. Salas porfirio 11/15/19 ck up Nov none CII/UDS by 3 years documented in this encounter Plan of Treatment Not on file documented as of this encounter Visit Diagnoses Not on filedocumented in this encounter Additional Health Concerns Assessment Noted Time PHQ-9 Depression Total Score: 1 05/12/19 20 10:37 AM EST documented as of this encounter Care Teams Plc Controls Engineer Relationship Specialty Start Date End Date Salome Naylor NP PCP - General Nurse Practitioner, Family 06/30/18 09/05/21 Sarah Beth Cardoso, SPICE MIXER [address] [place] [address] PCP - General Nurse Practitioner, Family 09/06/21 08/04/23 Provider, Generic External Data 08/13/20 Sarah Beth Cardoso, ANIA [address] [place], [place] [id number] Nurse Practitioner Nurse Practitioner, Family 08/17/20 Shila Olson, RN Registered Nurse 10/01/20 documented as of this encounter
--- OUTSIDE RECORDS SUMMARY | 2024-09-29 05:20 | XMS_ITS | Encounter Summary ---
Author Organization [facility] Address [address] [place] [address] Care Team Providers Care Can Marker Name Role Phone Salome Naylor NP Primary Care Provider Unavailab le Provider, Generic External Data Unavailable Unavailable Sarah Beth Cardoso NP Unavailable [phone] Shila Olson RN Unavailable Unavailable Sarah Beth Cardoso NP Primary Care Provider [phone] Reason for Visit * Reason Comments Medications Refill Encounter Details Date Type Department Care Team (Late st Contact Info) Description 04/06/2021 Refill [facility] Physicians - Primary Care, [place] [address] [place] [address] Sarah Beth Cardoso, CONTRACT LEAD [address] [facility] [place] [address] [place] [address] Medications Refill Social History Tobacco Use Types [...] Telephone Encounter - Elida Lee RMA - 04/08/2021 8:07 AM EST Requested Prescriptions Pending Prescriptions Disp Refills ??? Fenofibrate 54 mg Tablet [Pharmacy Med Name: FENOFIBRATE 54MG TAB 54 Tablet] 90 Tablet 1 Sig: TAKE 1 TABLET (54 MG TOTAL) BY MOUTH DAILY. Last PE or Check up-09/28/2020 Medicare Next PE or Check up-05/03/2021 PE Pending labs on file- Yes documented in this encounter Plan of Treatment Not on file documented as of this encounter Visit Diagnoses Diagnosis Borderline hyperlipidemia Other and unspecified hyperlipidemia documented in this encounter Additional Health Concerns Assessment Noted Time PHQ-9 Depression Total Score: 1 09/29/19 21 3:02 PM EDT documented as of this encounter Care Teams Can Marker Relationship Specialty Start Date End Date Salome Naylor NP PCP - General Nurse Practitioner, Family 06/30/18 09/05/21 Sarah Beth Cardoso NP [address] [place] [address] [place] [address] PCP - General Nurse Practitioner, Family 09/06/21 08/04/23 Provider, Generic External Data 08/13/20 Sarah Beth Cardoso NP [address] [place] [address] [place] [address] Nurse Practitioner Nurse Practitioner, Family 08/17/20 Shila Olson, RN Registered Nurse 10/01/20 documented as of this encounter
--- OUTSIDE RECORDS SUMMARY | 2024-09-29 05:20 | XMS_ITS | Encounter Summary ---
Author Organization [facility] Address [address] [place] [address] Care Team Providers Care Flight Radio Officer Name Role Phone Provider, Generic External Data Unavailable Unavailable Sarah Beth Cardoso NP Unavailable [phone] Shila Olson RN Unavailable Unavailable Sarah Beth Cardoso NP Primary Care Provider [phone] Reason for Visit * Reason Comments Medications Refill Encounter Details Date Type Department Care Team (Late st Contact Info) Description 09/12/2022 Refill [facility] Physicians - Primary Care, [place] [address] [place], [place] [id number] Sarah Beth Cardoso NP [address] [facility] [place] [address] [place] [address] Medications Refill Social History Tobacco Use Types [...] Encounter - Sarah Beth Cardoso NP - 09/17/2022 12:28 PM EDT RF sent, now appropriate PDMP Report has been generated and reviewed by Sarah Beth Cardoso NP for this patient on 09/17/2022 * Telephone Encounter - Sarah Beth Cardoso NP - 09/12/2022 1:47 PM EDT RX early - last 06/21/2022 for 90 days Will RX Thursday (2d early) Needs UDS and CSA at next fill * Telephone Encounter - Ella Gama RMA - 09/12/2022 12:19 PM EDT Requested Prescriptions Pending Prescriptions Disp Refills ??? 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 Neuropathy Mononeuritis of unspecified site documented in this encounter Additional Health Concerns Assessment Noted Time PHQ-9 Depression Total Score: 1 10/31/19 22 2:37 PM EDT documented as of this encounter Care Teams Flight Radio Officer Relationship Specialty Start Date End Date Sarah Beth Cardoso NP [address] [place] [address] PCP - General Nurse Practitioner, Family 09/06/21 08/04/23 Provider, Generic External Data 08/13/20 Sarah Beth Cardoso NP [address] [place] [address] Nurse Practitioner Nurse Practitioner, Family 08/17/20 Shila Olson, RN Registered Nurse 10/01/20 documented as of this encounter
--- OUTSIDE RECORDS SUMMARY | 2024-09-29 05:20 | XMS_ITS | Encounter Summary ---
Author Organization [facility] Address [address] [place] [address] Care Team Providers Care Er Nurse Name Role Phone Provider, Generic External Data Unavailable Unavailable Sarah Beth Cardoso NP Unavailable [phone] Shila Olson RN Unavailable Unavailable Sarah Beth Cardoso NP Primary Care Provider [phone] Reason for Visit * Reason Comments Medications Refill Encounter Details Date Type Department Care Team (Late st Contact Info) Description 12/10/2022 Refill [facility] Physicians - Primary Care, [place] [address] [place] [id number] Sarah Beth Cardoso NP [address] [facility] [address] Medications Refill Social History Tobacco Use Types [...] Encounter - Sarah Beth Cardoso NP - 12/15/2022 8:38 AM EDT RF now appropriate, RX sent to pharmacy PDMP Report has been generated and reviewed by Sarah Beth Cardoso NP for this patient on 12/15/2022 * Telephone Encounter - Sarah Beth Cardoso NP - 12/12/2022 8:06 AM EDT RF early, last 09/17/2022 Will send next week when appropriate * Telephone Encounter - Shania Marvin RMA - 12/11/2022 2:46 PM EDT Requested Prescriptions Pending Prescriptions Disp Refills ??? pregabalin (LYRICA) 150 mg Capsule [Pharmacy Med Name: PREGABALIN 150 MG CAPS 150 Capsule] 270 Capsule 0 Sig: TAKE 1 CAPSULE BY MOUTH THREE TIMES DAILY ? Perez- SEE PDMP Recent Results Pain Agreement Signed Date: 04/30/2022 UDS on file 10/31/22 ?? Last Office Visit::10/31/2022- Next Office Visit:12/29 Pending labs on file- yes ?? 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 Neuropathy Mononeuritis of unspecified site documented in this encounter Additional Health Concerns Assessment Noted Time PHQ-9 Depression Total Score: 1 10/31/19 22 2:37 PM EDT documented as of this encounter Care Teams Er Nurse Relationship Specialty Start Date End Date Sarah Beth Cardoso NP [address] [facility] [place] [address] PCP - General Nurse Practitioner, Family 09/06/21 08/04/23 Provider, Generic External Data 08/13/20 Sarah Beth Cardoso NP [address] [place] [id number] Nurse Practitioner Nurse Practitioner, Family 08/17/20 Shila Olson, RN Registered Nurse 10/01/20 documented as of this encounter
--- OUTSIDE RECORDS SUMMARY | 2024-09-29 05:20 | XMS_ITS | Encounter Summary ---
Author Organization [facility] Address [address] [place] [address] Care Team Providers Care Beam Worker Name Role Phone Provider, Generic External Data Unavailable Unavailable Sarah Beth Cardoso NP Unavailable [phone] Shila Olson RN Unavailable Unavailable Sarah Beth Cardoso NP Primary Care Provider [phone] Reason for Visit * Reason Comments Medications Refill Encounter Details Date Type Department Care Team (Late st Contact Info) Description 05/05/2023 Refill [facility] Physicians - Primary Care, [place] [address] [place] [id number] Sarah Beth Cardoso NP [address] [facility] [place] [address] Medications Refill Social History Tobacco Use Types [...] Encounter - Sarah Beth Cardoso NP - 05/05/2023 3:29 PM EST RX sent in She is very overdue, 30 days only * Telephone Encounter - Kimberlee Patrick MA - 05/05/2023 2:14 PM EST Pt states she takes 1 tablet once a day * Telephone Encounter - Kimberlee Patrick MA - 05/05/2023 1:54 PM EST Called. New voicemail not set up. Will try again * Telephone Encounter - Sarah Beth Cardoso NP - 05/05/2023 1:27 PM EST Please clarify dose We have always RXd 1 daily * Telephone Encounter - Kimberlee Patrick MA - 05/05/2023 12:21 PM EST Requested Prescriptions Pending Prescriptions Disp Refills ??? fluPHENAZine (PROLIXIN) 10 mg tablet [Pharmacy Med Name: FLUPHENAZINE 10 MG TABLET 10 Tablet] 60 Tablet 3 Sig: TAKE 1 TABLET BY MOUTH 2 TIMES DAILY Last Office Visit:Nov 12 Next Office Visit:05/27/2023-MPE Pending labs on file- Yes documented in this encounter Plan of Treatment Not on file documented as of this encounter Visit Diagnoses Diagnosis Schizophrenia, unspecified type documented in this encounter Additional Health Concerns Assessment Noted Time PHQ-9 Depression Total Score: 1 10/31/19 22 2:37 PM EDT documented as of this encounter Care Teams Beam Worker Relationship Specialty Start Date End Date Sarah Beth Cardoso NP [address] [facility] [place] [address] PCP - General Nurse Practitioner, Family 7/1/22 5/28/24 Provider, Generic External Data 08/13/20 Sarah Beth Cardoso, SPORTS ANALYST [address] [facility] [place] [address] Nurse Practitioner Nurse Practitioner, Family 08/17/20 Shila Olson, RN Registered Nurse 10/01/20 documented as of this encounter
--- OUTSIDE RECORDS SUMMARY | 2024-09-29 05:20 | XMS_ITS | Encounter Summary ---
Author Organization [facility] Address [address] [place] [address] Care Team Providers Care Edger Runner Name Role Phone Salome Naylor NP Primary Care Provider Unavailab le Provider, Generic External Data Unavailable Unavailable Sarah Beth Cardoso NP Unavailable [phone] Shila Olson RN Unavailable Unavailable Sarah Beth Cardoso NP Primary Care Provider [phone] Reason for Visit * Reason Comments Medications Refill Encounter Details Date Type Department Care Team (Late st Contact Info) Description 09/10/2020 Refill [facility] Physicians - Primary Care, [place]de [place] [address] [place] [address] Salome Naylor NP Medications Refill [...] have Coronavirus / COVID-19? No / Unsure 08/17/2020 11:24 AM EDT documented as of this encounter Miscellaneous Notes * Telephone Encounter - Salome Naylor NP - 09/11/2020 1:21 PM EDT Seen on 06/29/20 and neuropahty addressed then Refill sent in * Telephone Encounter - Twila JonPERLAJoan - 09/11/2020 11:40 AM EDT Requested Prescriptions Pending Prescriptions Disp Refills ??? pregabalin (LYRICA) 150 mg Capsule [Pharmacy Med Name: PREGABALIN 150 MG CAPS 150 Capsule] 90 Capsule 0 Sig: TAKE 1 CAPSULE (150 MG TOTAL) BY MOUTH 3 TIMES DAILY. Perez- UTD 08-14-20 CSA- 08-21-17 UDS- 08-21-17 last filled- 08-14-20 Last appt- 11-15-19 appt type- CK UP Next appt- 09-28-20 appt type- PE Pending labs on file- NO documented in this encounter Plan of Treatment Not on file documented as of this encounter Visit Diagnoses Diagnosis Myopathy Myopathy, unspecified Neuropathy Mononeuritis of unspecified site documented in this encounter Additional Health Concerns Assessment Noted Time PHQ-9 Depression Total Score: 1 05/12/19 20 10:37 AM EST documented as of this encounter Care Teams Edger Runner Relationship Specialty Start Date End Date Salome Naylor NP PCP - General Nurse Practitioner, Family 06/30/18 09/05/21 Sarah Beth Cardoso NP [address] [place] [address] PCP - General Nurse Practitioner, Family 09/06/21 08/04/23 Provider, Generic External Data 08/13/20 Sarah Beth Cardoso NP [address] [place] [address] Nurse Practitioner Nurse Practitioner, Family 08/17/20 Shila Olson, RN Registered Nurse 10/01/20 documented as of this encounter
[2024-09-29 05:28] LABS: Chloride 82 mmol/L (98-107); Hematocrit 26.2 % (37.0-47.0); Hemoglobin 8.5 g/dL (12.2-16.2); Immature Granulocytes % 0.3 %; Mean Corpuscular HGB Conc 32.4 g/dL (31.8-35.4); Mean Corpuscular Hemoglobin 23.5 pg (27.0-31.2); Mean Corpuscular Volume 72.4 fl (81-99); Nucleated Red Blood Cells % 0 %; Platelet Count 443 K/mm3 (142-424); Red Blood Count 3.62 M/mm3 (4.20-5.40); Red Cell Distribution Width-SD 43.0 fL; White Blood Count 6.9 K/mm3 (4.8-10.8)
[2024-09-29 05:29] LABS: Albumin Level 4.1 g/dl (3.5-5.0); Potassium 3.4 mmoL/L (3.5-5.1)
[2024-09-29 05:31] LABS: Blood Urea Nitrogen 19 mg/dl (7-17); Creatinine Clearance Estimated 44 mL/min (50-200); Creatinine,Serum 0.90 mg/dl (0.52-1.04); Estimated Glomerular Filt Rate 61 ml/min (>60); GFR (African American) 74 ML/MIN (>60)
[2024-09-29 05:32] LABS: Alanine Aminotransferase 11 U/L (12-78); Albumin/Globulin Ratio 1.8 (1.1-1.8); Alkaline Phosphatase 61 U/L (38-126); Anion Gap 9.4 mEq/L (5-15); Aspartate Amino Transferase 23 U/L (14-36); Bilirubin,Total 0.7 mg/dl (0.2-1.3); Calcium 8.7 mg/dl (8.4-10.2); Carbon Dioxide 27 mmol/L (22.0-30.0); Globulin 2.3 g/dL (1.3-3.2); Glucose 91 mg/dl (74-100); Lipase 154 U/L (23-300); Magnesium 1.1 mg/dl (1.6-2.3); Total Protein,Serum 6.4 g/dl (6.3-8.2)
[2024-09-29 05:33] LABS: Sodium 115 mmol/L (136-145)
--- NOTE | 2024-09-29 05:34 | PC.NURSE ---
critical called from lab. notified
[2024-09-29 05:36] LABS: D-Dimer 0.48 ug/mL (0.0-0.5)
[2024-09-29 05:41] LABS: NT Pro Brain Natriuretic Pep. 644 pg/mL (0-125)
[2024-09-29 05:45] LABS: Troponin I < 0.01 ng/ml (0.00-0.034)
[2024-09-29] MEDS: FUROSEMIDE 40MG/4ML VIAL 40 MG IV (05:54)
--- NOTE | 2024-09-29 05:59 | EXP.HP ---
History of Present Illness *Admission Date: 09/29/24 *Reason for visit:: chest pain *History of present illness: Ms. Trejo is a 74-year-old female who presented to the hospital with complaint of onset of right sided chest pain yesterday. Denies pain with exertion. Nothing is made it better or worse. Gets around in a wheelchair and has for several years due to multiple back surgeries and residual problems with her thoracic spine. Denies any new trauma. Stable on room air. Afebrile. No nausea or vomiting. On workup in the ER, found to have nonactionable troponin. EKG unremarkable. Labs however showed significant hyponatremia with sodium of 115 and chloride of 82. Chest imaging did not show any focal airspace disease. Medicine was consulted for admission and further management of her chest pain, hyponatremia. On my evaluation, patient is hemodynamically stable. Complains of pain on the right side of her thoracic cavity and into her right arm. It is reproducible on exam. Pain with palpation of her arm and palpation of her right chest. Stable on room air. Afebrile. Alert and oriented. Due to her chest pain, CT of the chest was obtained in the ED. Has no appreciable rib fractures but does have a significant thoracic vertebrae compression fracture that is chronic. Strong concern this is a source of her pain. Aside from feeling weak, does not have any other significant symptom of her hyponatremia. This is severe compared to previous levels which showed her sodium in the 122-128 range. Would like to see improvement before deeming medically stable to discharge home. Slowly correcting with fluid restriction, holding psych meds, and further workup with urine sodium ordered. [facility] Disclaimer: The information contained in this section may have been updated after the patient was seen, as this information can be updated by other users. Medical History Schizophrenia Surgical History S/P LEVY (total abdominal hysterectomy) History of surgery on upper extremity History of surgery on lower extremity Hx of knee surgery History of back surgery Family History Diabetes Social History (Updated 09/29/24 @ 06:48 by Maris Cespedes RN) Smoking Status: Current every day smoker alcohol intake: never current occupational status: other Travel in the last 8 weeks?: None Contact w/someone who lives/traveled outside [place] past 30 days?: No Exposure to someone with infectious disease in past 14 days?: No Do you have a fever (greater than 100.4 F or 38 C)?: No Have you tested positive for COVID-19?: No Exposed to someone with COVID-19 in past 14 days?: No Do you have a sore throat?: No Do you have a cough?: No Do you have any weakness?: No Are you experiencing any nausea/vomitting?: No Do you have any diarrhea?: No Are you experiencing any unusual bleeding?: No Do you have any muscle aches/pain?: No Do you have any abdominal pain?: No Are you experiencing loss of taste or smell?: No Other Medical History Have you received the Pneumonia Vaccine: No Review of Systems Review of Systems Review of systems (narrative): 14 point review of systems performed, pertinent positives and negatives as per HPI Meds Home Medications and Allergies Home Medications ?Medication ?Instructions ?Recorded ?Confirmed ?Type albuterol sulfate 90 mcg/actuation 2 puff inhalation QID PRN 01/29/24 06/29/24 Rx aerosol inhaler shortness of breath or wheezing #8.5 grams esomeprazole magnesium 40 mg 40 mg PO DAILY #90 caps 01/29/24 06/29/24 Rx capsule,delayed release estradiol 0.01% (0.1 mg/gram) 1 appful vaginal DAILY #42.5 grams 01/29/24 06/29/24 Rx vaginal cream (Estrace) fluticasone fur. 100 mcg-umeclid 1 inh inhalation DAILY #60 ea 01/29/24 06/29/24 Rx 62.5 mcg-vilant 25 mcg inhalat.powder (Trelegy Ellipta) ondansetron 4 mg disintegrating 4 mg PO Q8H PRN nausea and 05/05/24 06/29/24 Rx tablet vomiting #30 tabs clonazepam 0.5 mg tablet 0.5 mg PO HS #30 tabs 06/29/24 06/29/24 Rx fenofibrate 54 mg tablet 54 mg PO DAILY #90 tabs 06/29/24 06/29/24 Rx furosemide 40 mg tablet (Lasix) 40 mg PO DAILY #60 tabs 06/29/24 06/29/24 Rx levothyroxine 50 mcg capsule 50 mcg PO DAILY #90 caps 06/29/24 06/29/24 Rx pregabalin 150 mg capsule 150 mg PO Q8H #90 caps 06/29/24 06/29/24 Rx prochlorperazine maleate 10 mg 10 mg PO Q8H PRN nausea and 06/29/24 06/29/24 Rx tablet (Compazine) vomiting #30 tabs sulfamethoxazole 800 1 tab PO BID #20 tabs 06/29/24 06/29/24 Rx mg-trimethoprim 160 mg tablet (Bactrim DS) divalproex 500 mg tablet,extended 500 mg PO DAILY #90 tabs 07/05/24 Rx release 24 hr fluphenazine HCl 10 mg tablet 10 mg PO DAILY #90 tabs 07/05/24 Rx fluconazole 150 mg tablet 150 mg PO Q3D 2 doses #2 tabs 08/12/24 Rx New Prescriptions to Start Prescriptions: Allergies Allergy/AdvReac Type Severity Reaction Status Date / Time acetaminophen (From Tylenol) Allergy Unknown Verified 06/29/24 13:10 ibuprofen Allergy Unknown Verified 06/29/24 13:10 Penicillins Allergy Unknown Verified 06/29/24 13:10 Exam Data for Last 24 hours Vital signs and Labs for Last 24 Hours: Temp Pulse Resp BP Pulse Ox O2 Del Method 97.9 F 66 16 114/63 99 Room Air 09/29/24 05:02 09/29/24 05:31 09/29/24 05:31 09/29/24 05:31 09/29/24 05:31 09/29/24 05:31 Laboratory Results - last 24 hr 09/29/24 05:00: WBC 6.9, RBC 3.62 L, Hgb 8.5 L, Hct 26.2 L, MCV 72.4 L, MCH 23.5 L, MCHC 32.4, RDW 16.3, Plt Count 443 H, MPV 8.8, Neut % (Auto) 61.7, Lymph % (Auto) 25.9, [place] % (Auto) 9.1, Eos % (Auto) 2.6, Baso % (Auto) 0.4, Neut # (Auto) 4.3, Lymph # (Auto) 1.8, [place] # (Auto) 0.6, Eos # (Auto) 0.2, Baso # (Auto) 0.0, D-Dimer 0.48, Sodium 115 L, Potassium 3.4 L, Chloride 82 L, Carbon Dioxide 27, Anion Gap 9.4, BUN 19 H, Creatinine 0.90, Estimated Creat Clear 44, Estimated GFR 61, Est GFR ( Amer) 74, Glucose 91, Calcium 8.7, Magnesium 1.1 L, Total Bilirubin 0.7, AST 23, ALT 11 L, Alkaline Phosphatase 61, Troponin I < 0.01, NT-Pro-B Natriuret Pep 644 H, Total Protein 6.4, Albumin 4.1, Globulin 2.3, Albumin/Globulin Ratio 1.8, Lipase 154 I & O for Last 24 hours: Intake & Output 09/26/24 09/27/24 09/28/24 09/29/24 23:59 23:59 23:59 23:59 Weight 56.699 kg Constitutional Constitutional: mild distress, chronically ill appearing and cooperative *Routine HEENT Exam Head: Present normocephalic Eye: Present EOMI and PERRL ENT: Present mucous membranes moist *Routine Neck Exam Neck: Present supple; Absent lymphadenopathy Routine Chest/Breast/Axilla Exam Chest wall: Present tenderness (Right pectoralis around the right side and into right arm. Tender in right upper trapezius) *Routine Respiratory Exam Respiratory: Present CTA bilaterally; Absent rhonchi, wheezes or crackles *Routine Cardiovascular Exam Cardiovascular: Present RRR *Routine Abdominal Exam Abdominal: Present soft and normoactive bowel sounds; Absent tenderness *Routine Rectal Exam Rectal:: deferred *Routine Genitalia Exam Genitalia:: deferred *Routine Extremities Exam Extremities: Absent cyanosis, clubbing or edema Routine Back/Spine/Pelvis Exam Comments: Well-healed midline scar over thoracic spine. Slight curve and lean to the right. *Routine Skin Exam Skin: Present intact and warm; Absent rash *Routine Neurological Exam Neurological: Present alert, oriented X3 and moving all extremities (Though significant weakness in the legs); Absent altered mental status Comments: Nonambulatory Assessment and Plan *Assessment and plan (1) Chest pain at rest: Status: Acute Category: Medical Code(s): R07.9 - Chest pain, unspecified (2) Hyponatremia: Status: Acute Category: Medical Code(s): E87.1 - Hypo-osmolality and hyponatremia (3) Hypothyroidism: Status: Acute Category: Medical Code(s): E03.9 - Hypothyroidism, unspecified (4) Schizophrenia: Status: Acute Qualifiers: Schizophrenia type: unspecified Qualified Code(s): F20.9 - Schizophrenia, unspecified Category: Medical Code(s): F20.9 - Schizophrenia, unspecified (5) Tobacco use disorder: Status: Acute Category: Medical Code(s): F17.200 - Nicotine dependence, unspecified, uncomplicated (6) Thoracic compression fracture: Status: Chronic Category: Medical Code(s): S22.000A - Wedge compression fracture of unspecified thoracic vertebra, initial encounter for closed fracture (7) Wheelchair dependent: Status: Chronic Category: Medical Code(s): Z99.3 - Dependence on wheelchair Plan Ms. Trejo is a 74-year-old female who complains of chest pain over the past day. States is on the right side with some pain into her arm. Denies worsening or improvement with exertion. Has had multiple surgeries on her back. Hemodynamically stable. Found to have low sodium of 115 on arrival to the ER. Discussed case with ER physician, request admission for further evaluation of chest pain and treatment of her hyponatremia. I decided to admit patient for further care. Suspect hyponatremia secondary to medication side effect from her psychiatric meds versus SIADH. Chest pain concerning for musculoskeletal versus cardiac versus pulmonary. Stable on room air. Problems addressed as follows: Right-sided chest pain Chronic T-spine wedge compression fracture - Patient has risk factors as she is a smoker and reports remote history of mild heart attack when she was younger but denied significant workup for heart cath. Not on any blood pressure meds or cholesterol medication at this time. Will obtain lipid panel for benefit of calculation of [place] heart score - Suspect musculoskeletal given patient's wheelchair-bound status, history of 2 back surgeries, compression fracture in thoracic spine at same level of which she has pain, and reproducibility of pain with palpation on exam - EKG per my review with no STEMI or ST depression - Serial troponin pending. Initial troponin less than 0.01 - Holding on cards consult at this time given patient's alternative explanations for chest pain. - CT obtained, per my review shows compression fraction of T-spine, no significant bullous emphysema. 2 small nodules in the left lung field, would warrant follow-up imaging in 6 to 12 months. Hyponatremia Hypokalemia Hypomagnesemia - Differential includes medication side effect/medication induced SIADH. Urine sodium pending - Serum sodium 115, chloride 82. Sodium 128 a year ago. Baseline in the mid 120s. Suspect secondary to her psych meds as she is on Depakote, Compazine, fluphenazine. - Monitor for correction between 8 to 10 mEq a day. Serial sodiums ordered every 6 hours. - TSH pending given hypothyroid to evaluate for alternate etiology - Kidney function normal with BUN 19, creatinine 0.9 - Potassium 3.4, magnesium 1.1. Replacing per protocol; initiated magnesium 2 g every 4 hours x 3 doses. Repeat CBC, CMP, magnesium ordered for the morning Hypothyroid: TSH pending. Continue levothyroxine 50 mcg daily Schizophrenia: Appears stable with no behavioral disturbance at this time. Did level pending. Caution with resuming meds given hyponatremia. Tobacco use disorder COPD - Nicotine patch while admitted. Continue Trelegy inhaler. Albuterol as needed every 6 hours Lovenox subcu daily Regular diet DNR
--- NOTE | 2024-09-29 06:02 | CT_ITS ---
FINAL REPORT TECHNIQUE: Axial CT without IV contrast administration. This study was performed with techniques to keep radiation doses as low as reasonably achievable, (ALARA). Individualized dose reduction techniques using automated exposure control or adjustment of mA and/or kV according to the patient''s size were employed. CLINICAL HISTORY: eval for etiology of chest pain, lung nodule COMPARISON: none FINDINGS: No acute lung disease is present. No pleural or pericardial effusion is seen. No adenopathy or mass lesion is present. The thoracic aorta shows no evidence of aneurysm. Limited images of the upper abdomen demonstrate exophytic left renal mass measuring 12 mm, denser than a simple cyst. There is questionable gastric wall thickening, probably related to underdistention. IMPRESSION: No findings to account for patient's symptoms. Indeterminate left renal mass. Follow-up CT with renal mass protocol recommended. Reviewed, Interpreted and Dictated by Destiny Sterling MD Transcribed by Angie Velarde Authenticated and [facility]
--- NOTE | 2024-09-29 06:03 | ECG_ITS ---
APPROVED REPORT Exam: Resting ECG HR:68 bpm ECG Measurements Heart Rate 68 AXES NJ 165 P 71 QRSd 88 QRS -32 QT 381 T 51 QTc 398 Conclusion SINUS RHYTHM LEFT AXIS DEVIATION [QRS AXIS < -30] ABNORMAL ECG UNCONFIRMED REPORT Electronically signed by : BRADEN DELUCA, 09/30/2024 01:04:57
--- NOTE | 2024-09-29 06:09 | PC.NURSE ---
Report called to Shi on med/surg
[2024-09-29 06:14] LABS: Lipase 155 U/L (23-300)
--- NOTE | 2024-09-29 06:29 | PC.NURSE ---
Patient arrived to floor via stretcher from ED at 06:27.
[2024-09-29 06:34] LABS: Hepatitis C Ab Qual. W/ RFX NEGATIVE (Negative)
[2024-09-29 06:45] LABS: Thyroid Stimulating Hormone 1.07 uIU/mL (0.465-4.68)
[2024-09-29 07:20] LABS: Cholesterol 142 mg/dl (140-200); HDL Cholesterol 44 mg/dl (40-60); Triglycerides 151 mg/dl (30-150)
[2024-09-29] MEDS: LEVOTHYROXINE 50MCG (0.05MG) TAB 50 MCG PO (08:50)
[2024-09-29] MEDS: FLUTICASONE/UMECLIDIN/VILANTER 100/62.5/25MCG INHALER 1 PUFF IH (08:50)
[2024-09-29] MEDS: MAGNESIUM SULFATE IN WATER 2 GM/50 ML PIGGYBACK IV ×3 (08:51→14:33)
[2024-09-29 09:06] LABS: Troponin I < 0.01 ng/ml (0.00-0.034)
--- NOTE | 2024-09-29 09:47 | HMH.PTEV ---
Physical Therapy Evaluation Rehab PT IP Evaluation Start: 09/29/24 06:48 Freq: ONCE Status: Active Protocol: Document 09/29/24 09:40 PHOSURJIT (Rec: 09/29/24 09:47 PHOSURJIT [id number]) Subjective/History History History 74-year-old female who presented to the hospital with complaint of onset of right sided chest pain yesterday. Denies pain with exertion. Nothing is made it better or worse. Gets around in a wheelchair and has for several years due to multiple back surgeries and residual problems with her thoracic spine. Denies any new trauma. Stable on room air. Afebrile. No nausea or vomiting. On workup in the ER, found to have nonactionable troponin. EKG unremarkable. Labs however showed significant hyponatremia with sodium of 115 and chloride of 82. Chest imaging did not show any focal airspace disease. Medicine was consulted for admission and further management of her chest pain, hyponatremia. Pt reports she lives alone, no KYLE the home, and she is independent with all ADLs using a w/c for all mobility. She reports she uses a stand/pivot transfer to/from her w/c. Subjective Subjective Pt states, I don't ant to stand up, I'm tired! she was reluctantly agreeable to sit at EOB. No other c/ oat this time. [facility] How much help from another person do you currently need... Turning from your None back to your side while in a flat bed without using bedrails? Moving from lying on None back to sitting on the side of a flat bed without using bedrails? Moving to and from a A little bed to a chair ( including a wheelchair)? Standing up from a A little chair using your arms? (e.g., wheelchair, bedside chair) Walking in hospital A lot room? Climbing 3-5 steps A lot with a railing? Mobility Score 18 Mobility Level [facility] Mobility 6 Walk 10 steps or more Mobility Calculator Rehab PT IP Eval Objective Appearance Patient Behavior Appropriate Patient Orientation Person,Place,Time Difficulty following none instructions Speech Pattern Clear Ambulation Patient Able to No Ambulate Balance Ability to Arise Able, uses arms to help Sitting Balance Steady, safe Dynamic Sitting Good Balance Ability Transfers Bed Transfer Ability Independent Rehab PT IP prob,goals,plan Problems Date of Evaluation: 07/24/25 PT IP Problems Transfers Rehab Potential Rehab Potential Good Plan PT Intervention Plan Transfers,Therapeutic Exercise PT Plan Frequency Daily Duration LOS Discharge Goals Sit to Stand Chair Independent Transfer Ability Discharge Plan PT Discharge Plan Pt is currently appropriate to return home once medically stable if she can demonstrated expected stand /pivot chair transfer ability. Skilled acute therapy services are indicated to improve general strength and transfer ability in order to return pt to [facility]. Eval Complexity Eval Charge Codes 81557 - High Complexity PHYSICIAN CERTIFICATION: I certify the specified therapy services for Destinee Trejo are required, authorized, and reviewed every 30 days.
[2024-09-29 09:48] LABS: Sodium,Urine Random 34.0 mmol/L (30-90)
--- NOTE | 2024-09-29 09:50 | HMH.OTEV ---
OT Inpatient Evaluation Rehab OT IP Evaluation Start: 09/29/24 06:48 Freq: ONCE Status: Active Protocol: Document 09/29/24 09:38 RMARSHALL (Rec: 09/29/24 09:50 [id number] Rehab OT IP Assessment Subjective History Pt oriented x 3 on arrival. Pt admitted on 09/29/24 due to hyponatremia. History and physical: Ms. Trejo is a 74-year-old female who presented to the hospital with complaint of onset of right sided chest pain yesterday. Denies pain with exertion. Nothing is made it better or worse. Gets around in a wheelchair and has for several years due to multiple back surgeries and residual problems with her thoracic spine. Denies any new trauma. Stable on room air. Afebrile. No nausea or vomiting. On workup in the ER, found to have nonactionable troponin. EKG unremarkable. Labs however showed significant hyponatremia with sodium of 115 and chloride of 82. Chest imaging did not show any focal airspace disease. Medicine was consulted for admission and further management of her chest pain, hyponatremia. On my evaluation, patient is hemodynamically stable. Complains of pain on the right side of her thoracic cavity and into her right arm. It is reproducible on exam. Pain with palpation of her arm and palpation of her right chest. Stable on room air. Afebrile. Alert and oriented. Due to her chest pain, CT of the chest was obtained in the ED. Has no appreciable rib fractures but does have a significant thoracic vertebrae compression fracture that is chronic. Strong concern this is a source of her pain. Aside from feeling weak, does not have any other significant symptom of her hyponatremia. This is severe compared to previous levels which showed her sodium in the 122- 128 range. Would like to see improvement before deeming medically stable to discharge home. Slowly correcting with fluid restriction, holding psych meds, and further workup with urine sodium ordered. Subjective I am not standing up. Prior to being in the hospital, pt reports she lived at home alone. Pt claims she has an aide that comes to her house 3x's a week that assists with ADLs and IADLs. Pt uses motorized wheelchair at all times for functional transfers. Pt is normally independent with transfers to and from wheelchair. Objective Patient Orientation Person,Place,Birthday Right Upper WFL Extremity Gross ROM Left Upper Extremity WFL Gross ROM Bed Mobility bed mobility-scooting,bed mobility - supine/sit Assist Level Contact Guard/Hand Hold Rehab OT IP prob,goals,plan Problems Date of Evaluation: 09/29/24 OT IP Problems Bed Mobility,Transfers,Balance,Self care,Safety Rehab Potential Rehab Potential Good Equipment Needs Assistive Devices Rolling / Wheeled Walker,Wheelchair Plan OT intervention Plan Bed Mobility,Transfers,Balance,Self care,Safety, Therapeutic Exercise OT Plan Frequency Daily Duration LOS Discharge Goals Bed Mobility Ability Standby Assistance Sit to Stand Chair Contact Guard/Hand Hold Transfer Ability Chair Transfer Contact Guard/Hand Hold Ability Chair Transfer Stand Step Pivot Technique Chair Transfer Rolling Walker Assistive Devices Lower Body Dressing Minimal Assistance Ability Upper Body Dressing Standby Assistance Ability Performing Toilet Minimal Assistance Hygiene Ability Overall Commode/ Standby Assistance Toilet Transfer Ability Commode/Toilet Sit to/from Ambulatory Transfer Technique Discharge Plan OT Discharge Plan Pt appears to be close to baseline at this time for functional transfers and ADL independence. If patient continues to improve while in hospital, therapist recommends pt return home with HH OT evaluation. Continued skilled therapy is important in order for patient to improve strength, safety, endurance, ADL independence, and functional transfers to reach PLOF. Eval Complexity Eval Charge Codes 75383 - Moderate Complexity PHYSICIAN CERTIFICATION: I certify the specified therapy services for Destinee Trejo are required, authorized, and reviewed every 30 days.
--- OUTSIDE RECORDS SUMMARY | 2024-09-29 10:37 | XMS_ITS | Encounter Summary ---
Author Organization [facility] Address [address] [place] [address] Care Team Providers Care Grinder Gear Name Role Phone Provider, Generic External Data Unavailable Unavailable Sarah Beth Cardoso TIPPLE WORKER Unavailable [phone] Shila Olson RN Unavailable Unavailable Sarah Beth Cardoso NP Primary Care Provider [phone] Reason for Visit * Reason Comments Medications Refill Encounter Details Date Type Department Care Team (Late st Contact Info) Description 10/23/2022 Refill [facility] Physicians - Primary Care, Ayde Hess [address], [place] [address] Sarah Beth Cardoso NP [address] [place] [address] Medications Refill Social History Tobacco Use Types [...] documented as of this encounter Care Teams Grinder Gear Relationship Specialty Start Date End Date Sarah Beth Cardoso NP [address] [place] [address] PCP - General Nurse Practitioner, Family 09/06/21 08/04/23 Provider, Generic External Data 08/13/20 Sarah Beth Cardoso NP [address] [place] [address] Nurse Practitioner Nurse Practitioner, Family 08/17/20 Shila Olson, RN Registered Nurse 10/01/20 documented as of this encounter
--- OUTSIDE RECORDS SUMMARY | 2024-09-29 10:37 | XMS_ITS | Encounter Summary ---
Author Organization [facility] Address [address] [place] [id number] Care Team Providers Care Reflexologist Name Role Phone Provider, Generic External Data Unavailable Unavailable Sarah Beth Cardoso NP Unavailable [phone] Shila Olson RN Unavailable Unavailable Sarah Beth Cardoso NP Primary Care Provider [phone] Reason for Visit * Reason Comments Medications Refill Encounter Details Date Type Department Care Team (Late st Contact Info) Description 07/23/2022 Refill [facility] Physicians - Primary Care, Ayde Hess [address], [place] [address] Sarah Beth Cardoso NP [address] [place] [address] [place] [address] Medications Refill Social History Tobacco Use Types [...] documented as of this encounter Care Teams Reflexologist Relationship Specialty Start Date End Date Sarah Beth Cardoso NP [address] [place] [address] PCP - General Nurse Practitioner, Family 09/06/21 08/04/23 Provider, Generic External Data 08/13/20 Sarah Beth Cardoso NP [address] [place] [address] Nurse Practitioner Nurse Practitioner, Family 08/17/20 Shila Olson, RN Registered Nurse 10/01/20 documented as of this encounter
--- OUTSIDE RECORDS SUMMARY | 2024-09-29 10:37 | XMS_ITS | Encounter Summary ---
Author Organization [facility] Address [address] [place] [address] Care Team Providers Care Topstitcher Zigzag Name Role Phone Thanh Cheatham MD Primary Care Provider [phone] Salome Naylor NP Primary Care Provider Unavailab le Provider, Generic External Data Unavailable Unavailable Sarah Beth Cardoso NP Unavailable [phone] Shila Olson RN Unavailable Unavailable Sarah Beth Cardoso NP Primary Care Provider [phone] Encounter Details Date Type Department Care Team (Late st Contact Info) Description 09/13/2014 Orders Only Laboratory [address], [place] [address] Pippa Gordon [address] [place] [id number] Encounter for long-term (current) use of [...] range of 30-160 mg/L. Test performed at [facility]/[address] [address] ANNA LENZ MD,PHD Serum 09/13/2014 8:11 PM EDT 09/16/2014 4:48 AM EDT us Referring Nonstaff MD HEMATOLOGY ORDERABLES Jaida l Result Performing Organization Address City/State/[facility] Co de Phone Number [facility] [address] documented in this encounter Visit Diagnoses Diagnosis Encounter for long-term (current) use of other medications- Primary documented in this encounter Care Teams Topstitcher Zigzag Relationship Specialty Start Date End Date Thanh Cheatham MD PCP - General Family Medicine 04/28/12 06/29/18 Salome Naylor NP PCP - General Nurse Practitioner, Family 06/30/18 09/05/21 Sarah Beth Cardoso NP [address] [place] [address] PCP - General Nurse Practitioner, Family 09/06/21 08/04/23 Provider, Generic External Data 08/13/20 Sarah Beth Cardoso NP [address] [place] [address] Nurse Practitioner Nurse Practitioner, Family 08/17/20 Shila Olson, RN Registered Nurse 10/01/20 documented as of this encounter
--- OUTSIDE RECORDS SUMMARY | 2024-09-29 10:37 | XMS_ITS | Encounter Summary ---
Author Organization [facility] Address [address] [place] [address] Care Team Providers Care Candy Maker Helper Name Role Phone Thanh Cheatham MD Primary Care Provider [phone] Salome Naylor NP Primary Care Provider Unavailab le Provider, Generic External Data Unavailable Unavailable Sarah Beth Cardoso NP Unavailable [phone] Shila Olson RN Unavailable Unavailable Sarah Beth Cardoso NP Primary Care Provider [phone] Reason for Visit * Reason Comments Medications Refill Encounter Details Date Type Department Care Team (Late st Contact Info) Description 11/18/2014 Refill [facility] Physicians - Primary Care, [place] [address] [place], [place] [id number] [place] [address] Medications Refill Social History Tobacco [...] on filedocumented in this encounter Care Teams Candy Maker Helper Relationship Specialty Start Date End Date Thanh Cheatham MD PCP - General Family Medicine 04/28/12 06/29/18 Salome Naylor NP PCP - General Nurse Practitioner, Family 06/30/18 09/05/21 Sarah Beth Cardoso NP [address] [place] [address] PCP - General Nurse Practitioner, Family 09/06/21 08/04/23 Provider, Generic External Data 08/13/20 Sarah Beth Cardoso, ANIA [address] [place] [address] Nurse Practitioner Nurse Practitioner, Family 08/17/20 Shila Olson, RN Registered Nurse 10/01/20 documented as of this encounter
--- OUTSIDE RECORDS SUMMARY | 2024-09-29 10:37 | XMS_ITS | Clinical Summary ---
Author Organization [facility] Address [address] [place] [address] Care Team Providers Care Slip Box Changer Name Role Phone Provider, Generic External Data Unavailable Unavailable Sarah Beth Cardoso HOSTESS Unavailable [phone] Shila Olson RN Unavailable Unavailable Allergies Active Allergy Reactions Criticality Noted Date Comments Cotrim Nausea And Vomiting 08/16/2015 Celecoxib Nausea And Vomiting 08/16/2015 Ibuprofen Swelling,Hives 11/23/2017 Penicillins Swelling,Rash Medium 05/27/2012 Medications calcium carbonate-vitamin D3 1,000 mg-20 mcg (800 unit) Tablet Ac tive fluticasone-umecli din-vilanter (Trelegy Ellipta) 100-62.5-25 mcg Disk with DeviceIndications: Chronic obstructive pulmonary disease, unspecified COPD type ([facility]) Take 1 Puff by inhalation daily. 60 Each 5 3 Active albuterol (VENTOLIN/PROAIR/P ROVENTIL HFA) 90 mcg/actuation HFA Aerosol InhalerIndications :Chronic obstructive pulmonary disease, unspecified COPD type ([facility]) TAKE 2 PUFFS BY INHALATION EVERY 6 [...] infected. Started on keflex, culture sent by [facility]. Chest pain 07/01/2018 Overview (12/08/2016): Replaced [...] EDT Need for hepatitis C screening test [id number] SCAN AXIAL SKELETON Routine 02/02/2018 10:55 AM [...] 10/31/2022 14:38 was changed to Pregabalin by [employer] on 10/31/2022 21:06 Prescribed Drug 2 Pregabalin [facility] Creatinine, Ur 1.0(L) > or = 20.0 mg/dL [facility] Comment:Verified by repeat a nalysis. Specific [place], UA 1.000(L) > or = 1.003 [facility] Comment:Verified by repeat a nalysis. PH, Urine Drug Screen 6.7 4.5 - 9.0 [facility] Comment: Healthcare Providers needing interpretation assistance, please contact a [employer] Toxicolocy Specialist at ([phone]). M-F 8am-6pm EST. Oxidant NEGATIVE <200 mcg/mL [facility] Comment: Test performed at [facility] [place] [address] SAYRA FRENCH M.D. Amphetamines,Screen NEGATIVE <500 ng/mL [...] [facility] NOTE SEE NOTE [facility] TECHNICAL SOLUTIONS DIRECTOR AL LAB Comment: This drug testing is [...] analytical performance characteristics have been determined by [employer] It has not been cleared or approved by the FDA. This assay has been validated pursuant to the CLIA regulations and is used for clinical purposes. medMATCH(R) enables providers to identify if drug use is consistent or inconsistent with a corresponding prescribed medication(s) list. Healthcare Providers needing Interpretation assistance, please contact us at [phone] ( ) M-F, 8am to 10pm EST Test performed at [facility] [address] [address] ANDREW DUNBAR No previous value was reported. A value of SEE NOTE was entered by IF on 11/05/2022 01:06 Fentanyl, Ur NEGATIVE <0.5 ng/mL [facility] 6-Acetylmorphine Screen NEGATIVE <10 ng/mL [facility] medMatch Summary SEE NOTE [facility] Comment: Specimen Validity ABNORMAL Prescribed Prescribed Not Prescribed Consistent Inconsistent Inconsistent Lyrica(TM) Pregabalin Urine 10/31/2022 2:38 PM EDT 11/05/2022 1:06 AM EDT us Sarah Beth Cardoso NP URINE ORDERABLES Edited Resul t - Final [facility] [address] * (ABNORMAL) LIPID PROFILE (04/30/2022 2:43 [...] 11:29 PM EST us Sarah Beth Cardoso HOSTESS CHEMISTRY ORDERABLES Final Re sult Performing Organization Address [facility] Co de Phone Number [facility] [address] * HEPATITIS C AB WITH REFLEX TO HCV,RNA,QUANT PCR (10/22/2018 3:51 PM EDT) HCV Qual Interp Nonreactive Nonreactive [facility] Comment:IgG and IgM anti-HCV not detected. Signal/Cutoff 0.08 0.00 - 0.79 S/CO [facility] Serum 10/22/2018 3:51 PM EDT 10/22/2018 8:03 PM EDT us Salome Naylor HOSTESS HEMATOLOGY ORDERABLES Final Resu lt Performing Organization Address [facility] de Phone Number [facility] [address] * [id number] SCAN AXIAL SKELETON (02/02/2018 10:55 AM EST) 02/02/2018 10:[address] [facility] - 02/04/2018 3:58 PM EST Indication: The patient is presently being monitored while on treatment and requires a bone density assessment. Study was performed on Bedloo 5. Bone Density: Region BMD T-score Z-score [...] bone density assessment. Study was performed on [employer] APEX 5. Bone Density: Region BMD T-score [...] on 02/03/2018 11:29:00 AM. us External Provider [facility] IMG RESULTS ONLY Final Result Performing Organization Address City/[facility]/ZIP Co de Phone Number [facility] * [...] - SEE COMMENT (12/06/2009) us Historical Provider OR IMAGING Final Result [facility] [address] [place] [address] from Last 3 Months or Most Recently Relevant to Health Maintenance Insurance [facility] MEDICARE Care Teams Slip Box Changer Relationship Specialty Start Date End Date Provider, Generic External Data 08/13/20 Sarah Beth Cardoso NP [address] [place] [address] Nurse Practitioner Nurse Practitioner, Family 08/17/20 Shila Olson, RN Registered Nurse 10/01/20
--- OUTSIDE RECORDS SUMMARY | 2024-09-29 10:37 | XMS_ITS | Encounter Summary ---
Author Organization [facility] Address [address] [place] [address] Care Team Providers Care Senior Quality Assurance Analyst Name Role Phone Provider, Generic External Data Unavailable Unavailable Sarah Beth Cardoso NP Unavailable [phone] Shila Olson RN Unavailable Unavailable Sarah Beth Cardoso NP Primary Care Provider [phone] Reason for Visit * Reason Comments Medications Refill Encounter Details Date Type Department Care Team (Late st Contact Info) Description 12/10/2022 Refill [facility] Physicians - Primary Care, [place] [address] [place] [phone] Sarah Beth Cardoso NP [address] [facility] [place] [address] Medications Refill Social History Tobacco Use Types [...] documented as of this encounter Care Teams Senior Quality Assurance Analyst Relationship Specialty Start Date End Date Sarah Beth Cardoso NP [address] [facility] [place] [address] PCP - General Nurse Practitioner, Family 09/06/21 08/04/23 Provider, Generic External Data 08/13/20 Sarah Beth Cardoso NP [address] [place] [id number] Nurse Practitioner Nurse Practitioner, Family 08/17/20 Shila Olson, RN Registered Nurse 10/01/20 documented as of this encounter
--- OUTSIDE RECORDS SUMMARY | 2024-09-29 10:37 | XMS_ITS | Encounter Summary ---
Author Organization [facility] Address [address] [place] [address] Care Team Providers Care Air Cargo Ground Operations Supervisor Name Role Phone Provider, Generic External Data Unavailable Unavailable Sarah Beth Cardoso NP Unavailable [phone] Shila Olson RN Unavailable Unavailable Sarah Beth Cardoso NP Primary Care Provider [phone] Reason for Visit * Reason Comments Medications Refill Encounter Details Date Type Department Care Team (Late st Contact Info) Description 09/01/2022 Refill [facility] Physicians - Primary Care, [place] [address], [place] [address] Sarah Beth Cardoso NP [address] [place] [address] Medications Refill Social History Tobacco Use Types [...] Chronic obstructive pulmonary disease, unspecified COPD type ([facility]) documented in this encounter Additional Health Concerns Assessment Noted Time PHQ-9 Depression Total Score: 1 10/31/19 2:37 PM EDT documented as of this encounter Care Teams Air Cargo Ground Operations Supervisor Relationship Specialty Start Date End Date Sarah Beth Cardoso NP [address] [place] [address] PCP - General Nurse Practitioner, Family 09/06/21 08/04/23 Provider, Generic External Data 08/13/20 Sarah Beth Cardoso NP [address] [facility] [place] [address] Nurse Practitioner Nurse Practitioner, Family 08/17/20 Shila Olson, RN Registered Nurse 10/01/20 documented as of this encounter
--- OUTSIDE RECORDS SUMMARY | 2024-09-29 10:37 | XMS_ITS | Encounter Summary ---
Author Organization [facility] Address [address] [place] [address] Care Team Providers Care Financial Planning Consultant Name Role Phone Provider, Generic External Data Unavailable Unavailable Sarah Beth Cardoso DYNAMICS AX CONSULTANT Unavailable [phone] Shila Olson RN Unavailable Unavailable Sarah Beth Cardoso NP Primary Care Provider [phone] Reason for Visit * Reason Comments Medications Refill Encounter Details Date Type Department Care Team (Late st Contact Info) Description 10/23/2022 Refill [facility] Physicians - Primary Care, [place] [address], [place] [address] Sheron Cox MD Medications Refill [...] documented as of this encounter Care Teams Financial Planning Consultant Relationship Specialty Start Date End Date Sarah Beth Cardoso, DYNAMICS AX CONSULTANT [address] [place], [place] [id number] PCP - General Nurse Practitioner, Family 09/06/21 08/04/23 Provider, Generic External Data 08/13/20 Sarah Beth Cardoso, DYNAMICS AX CONSULTANT [address] [facility] [place] [address] Nurse Practitioner Nurse Practitioner, Family 08/17/20 Shila Olson, RN Registered Nurse 10/01/20 documented as of this encounter
--- OUTSIDE RECORDS SUMMARY | 2024-09-29 10:37 | XMS_ITS | Encounter Summary ---
Author Organization [facility] Address [address] [place] [address] Care Team Providers Care Industrial Maintenance Tech Name Role Phone Salome Naylor NP Primary Care Provider Unavailab le Provider, Generic External Data Unavailable Unavailable Sarah Beth Cardoso NP Unavailable [phone] Shila Olson RN Unavailable Unavailable Sarah Beth Cardoso NP Primary Care Provider [phone] Reason for Visit * Reason Comments Medications Refill Encounter Details Date Type Department Care Team (Late st Contact Info) Description 05/29/2020 Refill [facility] Physicians - Primary Care, [place] [address] [place] [address] Salome Naylor NP Medications Refill [...] documented as of this encounter Care Teams Industrial Maintenance Tech Relationship Specialty Start Date End Date Salome Naylor NP PCP - General Nurse Practitioner, Family 06/30/18 09/05/21 Sarah Beth Cardoso, BLOW UP OPERATOR [address] [place] [address] PCP - General Nurse Practitioner, Family 09/06/21 08/04/23 Provider, Generic External Data 08/13/20 Sarah Beth Cardoso, ANIA [address] [place], [place] [id number] Nurse Practitioner Nurse Practitioner, Family 08/17/20 Shila Olson, RN Registered Nurse 10/01/20 documented as of this encounter
--- OUTSIDE RECORDS SUMMARY | 2024-09-29 10:37 | XMS_ITS | Clinical Summary ---
Author Organization [facility] are Address [address] [place] [address] Phone Care Team Providers Care Vertical Lathe Operator Name Role Phone Liz Parks APRN Primary [...]
--- OUTSIDE RECORDS SUMMARY | 2024-09-29 10:37 | XMS_ITS | Encounter Summary ---
Author Organization [facility] Address [address] [place] [address] Care Team Providers Care Injection Molding Process Technician Name Role Phone Provider, Generic External Data Unavailable Unavailable Sarah Beth Cardoso NP Unavailable [phone] Shila Olson RN Unavailable Unavailable Sarah Beth Cardoso NP Primary Care Provider [phone] Reason for Visit * Reason Comments Medications Refill Encounter Details Date Type Department Care Team (Late st Contact Info) Description 05/05/2023 Refill [facility] Physicians - Primary Care, [place] [address] [place] [id number] Sarah Beth Cardoso NP [address] [facility] [place] [address] Medications Refill Social History Tobacco Use Types [...] documented as of this encounter Care Teams Injection Molding Process Technician Relationship Specialty Start Date End Date Sarah Beth Cardoso NP [address] [facility] [place] [address] PCP - General Nurse Practitioner, Family 7/1/22 5/28/24 Provider, Generic External Data 08/13/20 Sarah Beth Cardoso, TRANSPORTATION PROGRAM DIRECTOR [address] [facility] [place] [address] Nurse Practitioner Nurse Practitioner, Family 08/17/20 Shila Olson, RN Registered Nurse 10/01/20 documented as of this encounter
--- OUTSIDE RECORDS SUMMARY | 2024-09-29 10:37 | XMS_ITS | Encounter Summary ---
Author Organization [facility] Address [address] [place] [address] Care Team Providers Care Zone Maintenance Technician Name Role Phone Provider, Generic External Data Unavailable Unavailable Sarah Beth Cardoso GEOTECHNICAL ENGINEER Unavailable [phone] Shila Olson RN Unavailable Unavailable Sarah Beth Cardoso NP Primary Care Provider [phone] Reason for Visit * Reason Comments Medications Refill Encounter Details Date Type Department Care Team (Late st Contact Info) Description 12/25/2022 Refill [facility] Physicians - Primary Care, [place] [address] [place] [phone] Sarah Beth Cardoso NP [address] [facility] [place] [address] Medications Refill Social History Tobacco Use Types [...] documented as of this encounter Care Teams Zone Maintenance Technician Relationship Specialty Start Date End Date Sarah Beth Cardoso NP [address] [facility], [place] [id number] PCP - General Nurse Practitioner, Family 09/06/21 08/04/23 Provider, Generic External Data 08/13/20 Sarah Beth Cardoso NP [address] [place] [address] Nurse Practitioner Nurse Practitioner, Family 08/17/20 Shila Olson, RN Registered Nurse 10/01/20 documented as of this encounter
--- OUTSIDE RECORDS SUMMARY | 2024-09-29 10:37 | XMS_ITS | Encounter Summary ---
Author Organization [facility] Address [address] [place] [address] Care Team Providers Care Outside Maintenance Worker Name Role Phone Provider, Generic External Data Unavailable Unavailable Sarah Beth Cardoso NP Unavailable [phone] Shila Olson RN Unavailable Unavailable Sarah Beth Cardoso NP Primary Care Provider [phone] Reason for Visit * Reason Comments Medications Refill Encounter Details Date Type Department Care Team (Late st Contact Info) Description 09/16/2022 Refill [facility] Physicians - Primary Care, [place] [address] [place] [address] Sarah Beth Cardoso NP [address] [facility] [place] [address] Medications Refill Social History Tobacco Use Types [...] documented as of this encounter Care Teams Outside Maintenance Worker Relationship Specialty Start Date End Date Sarah Beth Cardoso NP [address] [place] [address] PCP - General Nurse Practitioner, Family 09/06/21 08/04/23 Provider, Generic External Data 08/13/20 Sarah Beth Cardoso NP [address] [place] [address] Nurse Practitioner Nurse Practitioner, Family 08/17/20 Shila Olson, RN Registered Nurse 10/01/20 documented as of this encounter
--- OUTSIDE RECORDS SUMMARY | 2024-09-29 10:37 | XMS_ITS | Clinical Summary ---
Author Organization [facility] Address [address] [place] [address] Care Team Providers Care Physical Laboratory Assistant Name Role Phone Unavailable Primary Care Provider [...]
--- OUTSIDE RECORDS SUMMARY | 2024-09-29 10:37 | XMS_ITS | Encounter Summary ---
Author Organization [facility] Address [address] [place] [address] Care Team Providers Care Ripening Room Attendant Name Role Phone Provider, Generic External Data Unavailable Unavailable Sarah Beth Cardoso NP Unavailable [phone] Shila Olson RN Unavailable Unavailable Sarah Beth Cardoso NP Primary Care Provider [phone] Reason for Visit * Reason Comments Medications Refill Encounter Details Date Type Department Care Team (Late st Contact Info) Description 09/12/2022 Refill [facility] Physicians - Primary Care, [place] [address] [place], [place] [id number] Sarah Beth Cardoso NP [address] [facility] [place] [address] Medications Refill Social History Tobacco Use Types [...] documented as of this encounter Care Teams Ripening Room Attendant Relationship Specialty Start Date End Date Sarah Beth Cardoso NP [address] [place] [address] PCP - General Nurse Practitioner, Family 09/06/21 08/04/23 Provider, Generic External Data 08/13/20 Sarah Beth Cardoso NP [address] [place] [address] Nurse Practitioner Nurse Practitioner, Family 08/17/20 Shila Olson, RN Registered Nurse 10/01/20 documented as of this encounter
--- OUTSIDE RECORDS SUMMARY | 2024-09-29 10:37 | XMS_ITS | Encounter Summary ---
Author Organization [facility] Address [address] [place] [address] Care Team Providers Care Chief Technical Officer Name Role Phone Thanh Cheatham MD Primary Care Provider [phone] Salome Naylor NP Primary Care Provider Unavailab le Provider, Generic External Data Unavailable Unavailable Sarah Beth Cardoso NP Unavailable [phone] Shila Olson RN Unavailable Unavailable Sarah Beth Cardoso NP Primary Care Provider [phone] Reason for Visit * Reason Comments Medications Refill Encounter Details Date Type Department Care Team (Late st Contact Info) Description 10/05/2017 Refill [facility] Physicians - Primary Care [place] [address] [place], [place] [id number] Thanh Cheatham MD [place] [id number] Medications Refill Social History Tobacco Use Types [...] Notes * Telephone Encounter - Hui Perdomo, [facility] - 10/07/2017 9:48 AM EDT Last seen [...] documented as of this encounter Care Teams Chief Technical Officer Relationship Specialty Start Date End Date Thanh Cheatham MD PCP - General Family Medicine 04/28/12 06/29/18 Salome Naylor NP PCP - General Nurse Practitioner, Family 06/30/18 09/05/21 Sarah Beth Cardoso NP [address] [place] [address] PCP - General Nurse Practitioner, Family 09/06/21 08/04/23 Provider, Generic External Data 08/13/20 Sarah Beth Cardoso NP [address] [facility] [place] [address] Nurse Practitioner Nurse Practitioner, Family 08/17/20 Shila Olson, RN Registered Nurse 10/01/20 documented as of this encounter
--- OUTSIDE RECORDS SUMMARY | 2024-09-29 10:38 | XMS_ITS | Encounter Summary ---
Author Organization [facility] Address [address] [place] [address] Care Team Providers Care Shop Superintendent Name Role Phone Provider, Generic External Data Unavailable Unavailable Sarah Beth Cardoso NP Unavailable [phone] Shila Olson RN Unavailable Unavailable Sarah Beth Cardoso NP Primary Care Provider [phone] Reason for Visit * Reason Comments Medications Refill Encounter Details Date Type Department Care Team (Late st Contact Info) Description 04/15/2022 Refill [facility] Physicians - Primary Care, [place] [address] [place] [address] Sarah Beth Cardoso NP [address] [place] [address] Medications Refill Social History Tobacco Use Types [...] documented as of this encounter Care Teams Shop Superintendent Relationship Specialty Start Date End Date Sarah Beth Cardoso NP [address] [facility], [place] [id number] PCP - General Nurse Practitioner, Family 09/06/21 08/04/23 Provider, Generic External Data 08/13/20 Sarah Beth Cardoso NP [address] [facility] [place] [address] Nurse Practitioner Nurse Practitioner, Family 08/17/20 Shila Olson, RN Registered Nurse 10/01/20 documented as of this encounter
--- OUTSIDE RECORDS SUMMARY | 2024-09-29 10:38 | XMS_ITS | Encounter Summary ---
Author Organization The [facility] Address [address] [place] [address] Care Team Providers Care Test Driller Name Role Phone Provider, Generic External Data Unavailable Unavailable Sarah Beth Cardoso NP Unavailable Shila Olson RN Unavailable Unavailable Reason for Visit * Reason Comments Medications Refill Encounter Details Date Type Department Care Team (Late st Contact Info) Description 08/05/2023 Refill [facility] Physicians - Primary Care, [place] [address] [place] [address] Sarah Beth Cardoso NP [address] [facility] 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
--- OUTSIDE RECORDS SUMMARY | 2024-09-29 10:39 | XMS_ITS | Encounter Summary ---
Author Organization [place] [address] Care Team Providers Care Landing Support Specialist Name Role Phone Javier Shell MD Primary Care Provider [phone] Gage Mcconnell MD [facility] Thanh Gonzalez MD Primary Care Provider [phone] Sarah Beth Cardoso NP Primary Care Provider [phone] Encounter Details Date Type Department Care Team (Late st Contact Info) Description 12/05/2010 Orders Only SEP Gastro CV [address] [facility] Building [address] [place] [id number] Abdi Clemons MD Social History Tobacco [...] to second part of the duodenum Narrative SEPMOSTRO - 12/06/2010 6:20 AM EDT Performing Provider: Abdi Clemons MD Referring Provider: Javier Shell MD Abdi Clemons MD GI PROCEDURE ORDERABLES Fi nal Result [address] [place] [address] documented in this encounter Visit Diagnoses Not on filedocumented in this encounter Additional Health Concerns Infection Onset Date Last Indicated Resolved Time 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 05/19/2011 06/13/2015 8:15 AM E DT documented as of this encounter Care Teams Landing Support Specialist Relationship Specialty Start Date End Date Javier Shell MD [facility] [place] [id number] PCP - General 09/02/10 08/01/12 Thanh Cheatham MD [address] [place] [address] [place] [phone] PCP - General Family Medicine 08/02/12 06/23/22 Sarah Beth Cardoso NP [address] [place], [place] [id number] PCP - General Nurse Practitioner-Family 06/24/22 Gage Mcconnell MD [facility] [place] [id number] Psychiatry & Neurology-Psychiatry 10/28/11 documented as of this encounter
--- OUTSIDE RECORDS SUMMARY | 2024-09-29 10:39 | XMS_ITS | Encounter Summary ---
Author Organization The [facility] Address [address] [place] [address] Care Team Providers Care Residential Mortgage Manager Name Role Phone Provider, Generic External Data Unavailable Unavailable Sarah Beth Cardoso NP Unavailable [phone] Shila Olson RN Unavailable Unavailable Sarah Beth Cardoso NP Primary Care Provider [phone] Reason for Visit * Reason Comments Medications Refill Encounter Details Date Type Department Care Team (Late st Contact Info) Description 12/18/2021 Refill [facility] Physicians - Primary Care, [place] [address] [place] [address] Suly Nichols, QI SPECIALIST [address] [place] [address] Medications Refill Social History Tobacco [...] documented as of this encounter Care Teams Residential Mortgage Manager Relationship Specialty Start Date End Date Sarah Beth Cardoso NP [address] [place], [place] [id number] PCP - General Nurse Practitioner, Family 09/06/21 08/04/23 Provider, Generic External Data 08/13/20 Sarah Beth Cardoso, TANK BOTTOM ASSEMBLER [address] [place] [address] Nurse Practitioner Nurse Practitioner, Family 08/17/20 Shila Olson, RN Registered Nurse 10/01/20 documented as of this encounter
--- OUTSIDE RECORDS SUMMARY | 2024-09-29 10:39 | XMS_ITS | Encounter Summary ---
Author Organization The Address [address] [place] [address] Care Team Providers Care Flag Signalman Name Role Phone Salome Naylor NP Primary Care Provider Unavailab le Provider, Generic External Data Unavailable Unavailable Sarah Beth Cardoso NP Unavailable [phone] Shila Olson RN Unavailable Unavailable Sarah Beth Cardoso NP Primary Care Provider [phone] Reason for Visit * Reason Onset Date Comments Medications Refill Medications Refill 08/10/2020 Encounter Details Date Type Department Care Team (Late st Contact Info) Description 07/19/2020 Refill The Physicians - Primary Care, [place] [address] [place] [address] Salome Naylor NP Medications Refill; [...] documented as of this encounter Care Teams Flag Signalman Relationship Specialty Start Date End Date Salome Naylor NP PCP - General Nurse Practitioner, Family 06/30/18 09/05/21 Sarah Beth Cardoso NP [address] [facility], [place] [id number] PCP - General Nurse Practitioner, Family 09/06/21 08/04/23 Provider, Generic External Data 08/13/20 Sarah Beth Cardoso NP [address] [facility], [place] [address] Nurse Practitioner Nurse Practitioner, Family 08/17/20 Shila Olson, RN Registered Nurse 10/01/20 documented as of this encounter
--- OUTSIDE RECORDS SUMMARY | 2024-09-29 10:39 | XMS_ITS | Encounter Summary ---
Author Organization The [facility] Address [address] [place] [address] Care Team Providers Care Mcat Tutor Name Role Phone Salome Naylor NP Primary Care Provider Unavailab le Provider, Generic External Data Unavailable Unavailable Sarah Beth Cardoso NP Unavailable [phone] Shila Olson RN Unavailable Unavailable Sarah Beth Cardoso NP Primary Care Provider [phone] Reason for Visit * Reason Comments Medications Refill Encounter Details Date Type Department Care Team (Late st Contact Info) Description 09/10/[address] [facility] Physicians - Primary Care, [place] [address] [place] [address] Salome Naylor NP Medications Refill [...] documented as of this encounter Care Teams Mcat Tutor Relationship Specialty Start Date End Date Salome Naylor NP PCP - General Nurse Practitioner, Family 06/30/18 09/05/21 Sarah Beth Cardoso NP [address] [place] [address] [place] [address] PCP - General Nurse Practitioner, Family 09/06/21 08/04/23 Provider, Generic External Data 08/13/20 Sarah Beth Cardoso NP [address] [place] [address] [place] [address] Nurse Practitioner Nurse Practitioner, Family 08/17/20 Shila Olson, RN Registered Nurse 10/01/20 documented as of this encounter
--- OUTSIDE RECORDS SUMMARY | 2024-09-29 10:39 | XMS_ITS | Encounter Summary ---
Author Organization The [facility] Address [address] [place] [address] Care Team Providers Care Trimmer Machine Name Role Phone Salome Naylor NP Primary Care Provider Unavailab le Provider, Generic External Data Unavailable Unavailable Sarah Beth Cardoso NP Unavailable [phone] Shila Olson RN Unavailable Unavailable Sarah Beth Cardoso NP Primary Care Provider [phone] Reason for Visit * Reason Comments Medications Refill Encounter Details Date Type Department Care Team (Late st Contact Info) Description 08/12/2020 Refill The [facility] Physicians - Primary Care, [place] [address] [place] [address] Salome Naylor NP Medications Refill [...] documented as of this encounter Care Teams Trimmer Machine Relationship Specialty Start Date End Date Salome Naylor NP PCP - General Nurse Practitioner, Family 06/30/18 09/05/21 Sarah Beth Cardoso NP [address] [place] [address] PCP - General Nurse Practitioner, Family 09/06/21 08/04/23 Provider, Generic External Data 08/13/20 Sarah Beth Cardoso NP [address] [facility] [place] [address] Nurse Practitioner Nurse Practitioner, Family 08/17/20 Shila Olson, RN Registered Nurse 10/01/20 documented as of this encounter
--- OUTSIDE RECORDS SUMMARY | 2024-09-29 10:39 | XMS_ITS | Encounter Summary ---
Author Organization The Address [address] [place] [address] Care Team Providers Care Pump Service Supervisor Name Role Phone Provider, Generic External Data Unavailable Unavailable Sarah Beth Cardoso NP Unavailable [phone] Shila Olson RN Unavailable Unavailable Sarah Beth Cardoso NP Primary Care Provider [phone] Reason for Visit * Reason Comments Medications Refill Encounter Details Date Type Department Care Team (Late st Contact Info) Description 10/26/2021 Refill The Physicians - Primary Care, [place] [address] [place] [address] Salome Naylor NP Medications Refill [...] documented as of this encounter Care Teams Pump Service Supervisor Relationship Specialty Start Date End Date Sarah Beth Cardoso NP [address] [facility], [place] [id number] PCP - General Nurse Practitioner, Family 09/06/21 08/04/23 Provider, Generic External Data 08/13/20 Sarah Beth Cardoso NP [address] [facility], [place] [id number] Nurse Practitioner Nurse Practitioner, Family 08/17/20 Shila Olson, RN Registered Nurse 10/01/20 documented as of this encounter
--- OUTSIDE RECORDS SUMMARY | 2024-09-29 10:39 | XMS_ITS | Encounter Summary ---
Author Organization The [facility] Address [address] [place] [address] Care Team Providers Care Pharmaceutical Botanist Name Role Phone Provider, Generic External Data Unavailable Unavailable Sarah Beth Cardoso NP Unavailable [phone] Shila Olson RN Unavailable Unavailable Sarah Beth Cardoso NP Primary Care Provider [phone] Reason for Visit * Reason Comments Medications Refill Encounter Details Date Type Department Care Team (Late st Contact Info) Description 03/21/2022 Refill [facility] Physicians - Primary Care, [place] [address] [place] [id number] Sarah Beth Cardoso NP [address] [facility] [place] [address] [place] [address] Medications Refill Social History Tobacco Use Types [...] documented as of this encounter Care Teams Pharmaceutical Botanist Relationship Specialty Start Date End Date Sarah Beth Cardoso NP [address] [facility] [address] PCP - General Nurse Practitioner, Family 09/06/21 08/04/23 Provider, Generic External Data 08/13/20 Sarah Beth Cardoso NP [address] [facility] [address] Nurse Practitioner Nurse Practitioner, Family 08/17/20 Shila Olson, RN Registered Nurse 10/01/20 documented as of this encounter
--- OUTSIDE RECORDS SUMMARY | 2024-09-29 10:39 | XMS_ITS | Clinical Summary ---
Author Organization [facility] Address [address] [place] [address] Phone Care Team Providers Care Swing Grinder Name Role Phone aGge Mcconnell MD, Kari NP Primary Care Provider [phone] Allergies Active Allergy Reactions Criticality Noted Date Comments Celecoxib Nausea And Vomiting 04/21/2014 Pt refuses. States it caused severe nausea and vomiting Ibuprofen Hives 05/24/2018 Penicillins Hives High Medications * This document contains information received from the source organization and may not represent a complete record from that organization. AMLODIPINE BESYLATE, BULK, MISC 2.5 mg by [facility].(Non-Drug; Combo Route) route daily. Active fUROsemide (LASIX) [...] t be different from the original. MIRELA [id number] 08/23/18 Problem Noted Date Diagnosed Date Spinal [...] TUNNEL RELEASE.; Surgeon: Gage Blair MD; Location: [facility]; Service: Hand Medical devices from this surgery are in the Medical Devices section. CARPAL TUNNEL RELEASE 07/13/2014 Hand/Left Surgeon: Gage Blair MD; Location: [facility]; Service: Hand Medical devices from this [...] this topic Medical Devices Implanted Type Area Clinical Lab Specialist Device Identifier Shelf Expiration Date Model / Serial / Lot Screw Cancellous 4.0mm X 35mm Full Threaded With 2.5mm Hexag - [id number] Implanted:Qty: 1 on 04/21/2014 by Theo Casey MD at [facility] Left: Knee SYNTHES-STRATEC: [email or web address] [id number] / / Screw Cancellous 4.0mm X 40mm Full Threaded With 2.5mm Hexag - [id number] Implanted:Qty: 1 on 04/21/2014 by Theo Casey MD at [facility] Left: Knee SYNTHES-STRATEC: [email or web address] [id number] / / Bone Cancellous 30cc Chips - [id number] Implanted:Qty: 1 on 07/13/2014 by Gage Blair MD at [facility] Left: Wrist SYNTHES-STRATEC: [email or web address] 07/31/2017 [id number] / / [id number] Plate Radius Distal Volar Va Lcp 2.4mm 2 Column Left 6 Hole - [id number] Implanted:Qty: 1 on 07/13/2014 by Gage Blair MD at [facility] Left: Wrist SYNTHES-STRATEC: [email or web address] [id number] / / Screw Locking 2.4mm X 12mm Self Tapping With Stardrive Recess Stainless Steel - [id number] Implanted:Qty: 2 on 07/13/2014 by Gage Blair MD at [facility] Left: Wrist SYNTHES-STRATEC: [email or web address] [id number] / / Screw Locking 1.8mm X 16mm Va Buttress Pin With T8 Stardrive Recess - [id number] Implanted:Qty: 1 on 07/13/2014 by Gage Blair MD at [facility] Left: Wrist SYNTHES-STRATEC: [email or web address] [id number] / / Screw Locking 1.8mm X 18mm Va Buttress Pin With T8 Stardrive Recess - [id number] Implanted:Qty: 5 on 07/13/2014 by Gage Blair MD at [facility] Left: Wrist SYNTHES-STRATEC: SYNTHES [facility] / / Description:3 implanted and 2 implanted and explanted. Screw Locking 1.8mm X 20mm Va Buttress Pin With T8 Stardrive Recess - [id number] Implanted:Qty: 1 on 07/13/2014 by Gage Blair MD at [facility] Left: Wrist SYNTHES-STRATEC: SYNTHES [facility] 0 / / Procedures Procedure Name Priority [...] bone density assessment. Study was performed on [place] 5. Bone Density: Region BMD T-score Z-score [...] EST : No radiographic evidence of malignancy ([id number]) ~ RECOMMENDATION: Routine screening mammogram in 1 [...] ~ IMPRESSION: No radiographic evidence of malignancy ([id number]-2) ~ RECOMMENDATION: Routine screening mammogram in 1 [...] Performing Provider: Abdi Clemons MD Referring Provider: Thanh Cheatham M.D. Abdi Clemons MD GI PROCEDURE ORDERABLES Fi nal Result SEPGASTRO [address] [address] from Last 3 Months or Most Recently Relevant to Health Maintenance Insurance [place]ICAID [place] Member Subscriber Plan / Payer (Ef fective 2020-Present) Name:Loretta Trejowild Calles Relation to Subscriber:Self Name:Loretta Trejonnfiordaliza Calles Payer ID:Not on file Group ID:Not on file Type:Not on file Address: [address] MEDICARE ADVANTAGE HMO-POS * Guarantor: Destinee Trejo Account Type Relation to Patient Date of Phone Billing Address [place] Personal Family Self Advance Directives For more information, please contact: [phone] * Full Code (Latest Code Status on File) Date Activated Date Inactivated Comments 08/20/2018 11:21 AM 08/24/2018 9:07 PM * Full Code Date Activated Date Inactivated Comments 08/18/2018 5:30 PM 08/18/2018 9:01 PM * Full Code Date Activated Date Inactivated Comments 08/17/2018 10:22 PM 08/18/2018 5:30 PM * Full Code Date Activated Date Inactivated Comments 08/17/2018 7:29 PM 08/17/2018 10:01 PM Care Teams Swing Grinder Relationship Specialty Start Date End Date Sarah Beth Cardoso NP [address] [place] [address] PCP - General Nurse Practitioner-Family 06/24/22 Gage Mcconnell MD Psychiatry & Neurology-Psychiatry 10/28/11
--- OUTSIDE RECORDS SUMMARY | 2024-09-29 10:39 | XMS_ITS | Encounter Summary ---
Author Organization The [facility] Address [address] [place] [address] Care Team Providers Care Fur Blender Name Role Phone Salome Naylor NP Primary Care Provider Unavailab le Provider, Generic External Data Unavailable Unavailable Sarah Beth Cardoso SPOT MACHINE OPERATOR Unavailable [phone] Shila Olson RN Unavailable Unavailable Sarah Beth Cardoso NP Primary Care Provider [phone] Reason for Visit * Reason Comments Medications Refill Encounter Details Date Type Department Care Team (Late st Contact Info) Description 04/18/2021 Refill The [facility] Physicians - Primary Care, [place] [address] [place] [address] Salome Naylor NP Medications Refill [...] (Ventolin HFA) 90 mcg/actuation HFA Aerosol Inhaler [[id number]] ?? Order Details Dose: 2 Puff Route: [...] Chronic obstructive pulmonary disease, unspecified COPD type ([facility]) documented in this encounter Additional Health Concerns Assessment Noted Time PHQ-9 Depression Total Score: 1 09/29/19 21 3:02 PM EDT documented as of this encounter Care Teams Fur Blender Relationship Specialty Start Date End Date Salome Naylor NP PCP - General Nurse Practitioner, Family 06/30/18 09/05/21 Sarah Beth Cardoso NP [address] [place] [place] [address] [place] [address] PCP - General Nurse Practitioner, Family 09/06/21 08/04/23 Provider, Generic External Data 08/13/20 Sarah Beth Cardoso NP [address] [facility] [place] [address] Nurse Practitioner Nurse Practitioner, Family 08/17/20 Shila Olson, RN Registered Nurse 10/01/20 documented as of this encounter
--- OUTSIDE RECORDS SUMMARY | 2024-09-29 10:39 | XMS_ITS | Encounter Summary ---
Author Organization The [facility] Address [address] [place] [address] Care Team Providers Care Meat Loiner Name Role Phone Salome Naylor NP Primary Care Provider Unavailab le Provider, Generic External Data Unavailable Unavailable Sarah Beth Cardoso NP Unavailable [phone] Shila Olson RN Unavailable Unavailable Sarah Beth Cardoso NP Primary Care Provider [phone] Reason for Visit * Reason Comments Medications Refill Encounter Details Date Type Department Care Team (Late st Contact Info) Description 04/06/2021 Refill The [facility] Physicians - Primary Care, [place] [address] [place] [address] Sarah Beth Cardoso, SKEIN TIER [address] [facility] [place] [address] Medications Refill Social History Tobacco Use Types [...] documented as of this encounter Care Teams Meat Loiner Relationship Specialty Start Date End Date Salome Naylor NP PCP - General Nurse Practitioner, Family 06/30/18 09/05/21 Sarah Beth Cardoso NP [address] [place] [address] [place] [address] PCP - General Nurse Practitioner, Family 09/06/21 08/04/23 Provider, Generic External Data 08/13/20 Sarah Beth Cardoso NP [address] [place] [address] [place] [address] Nurse Practitioner Nurse Practitioner, Family 08/17/20 Shila Olson, RN Registered Nurse 10/01/20 documented as of this encounter
[2024-09-29 11:14] LABS: Chloride 82 mmol/L (98-107); Sodium 117 mmol/L (136-145)
[2024-09-29 11:17] LABS: Blood Urea Nitrogen 17 mg/dl (7-17); Calcium 8.8 mg/dl (8.4-10.2); Creatinine Clearance Estimated 42 mL/min (50-200); Creatinine,Serum 0.90 mg/dl (0.52-1.04); Estimated Glomerular Filt Rate 61 ml/min (>60); GFR (African American) 74 ML/MIN (>60); Glucose 101 mg/dl (74-100)
[2024-09-29 11:18] LABS: Potassium 3.0 mmoL/L (3.5-5.1)
[2024-09-29] MEDS: POTASSIUM CHLORIDE 20MEQ TAB 40 MEQ PO ×2 (11:22→14:33)
--- NOTE | 2024-09-29 11:43 | EXP.PN ---
Subjective *Date: 09/29/24 *Time: 11:43 Exam Data for Last 24 hours Vital signs and Labs for Last 24 Hours: Temp Pulse Resp BP Pulse Ox O2 Del Method 98.4 F 68 16 124/68 98 Room Air 09/29/24 08:00 09/29/24 08:00 09/29/24 08:00 09/29/24 08:00 09/29/24 08:00 09/29/24 11:00 Laboratory Results - last 24 hr 09/29/24 05:00: WBC 6.9, RBC 3.62 L, Hgb 8.5 L, Hct 26.2 L, MCV 72.4 L, MCH 23.5 L, MCHC 32.4, RDW 16.3, Plt Count 443 H, MPV 8.8, Neut % (Auto) 61.7, Lymph % (Auto) 25.9, [place] % (Auto) 9.1, Eos % (Auto) 2.6, Baso % (Auto) 0.4, Neut # (Auto) 4.3, Lymph # (Auto) 1.8, [place] # (Auto) 0.6, Eos # (Auto) 0.2, Baso # (Auto) 0.0, D-Dimer 0.48, Sodium 115 L, Potassium 3.4 L, Chloride 82 L, Carbon Dioxide 27, Anion Gap 9.4, BUN 19 H, Creatinine 0.90, Estimated Creat Clear 44, Estimated GFR 61, Est GFR ( Amer) 74, Glucose 91, Calcium 8.7, Magnesium 1.1 L, Total Bilirubin 0.7, AST 23, ALT 11 L, Alkaline Phosphatase 61, Troponin I < 0.01, NT-Pro-B Natriuret Pep 644 H, Total Protein 6.4, Albumin 4.1, Globulin 2.3, Albumin/Globulin Ratio 1.8, Triglycerides 151 H, Cholesterol 142, LDL Cholesterol Direct 44.29 L, VLDL Cholesterol 30, HDL Cholesterol 44, Cholesterol/HDL Ratio 3.2, Lipase 154 09/29/24 05:00: Lipase 155, TSH 1.07, HCV Ab DONNA w/Rflx PCR Qn Negative, HIV Ag/Ab Combo Qual Negative 09/29/24 08:10: Troponin I < 0.01 09/29/24 09:00: Urine Sodium 34.0 09/29/24 11:00: Sodium 117 L, Potassium 3.0 L, Chloride 82 L, Carbon Dioxide 29, BUN 17, Creatinine 0.90, Estimated Creat Clear 42, Estimated GFR 61, Est GFR ( Amer) 74, Glucose 101 H, Calcium 8.8 I & O for Last 24 hours: Intake & Output 09/26/24 09/27/24 09/28/24 09/29/24 23:59 23:59 23:59 23:59 Intake Total 360 / 360 Balance 360 / 360 Weight 54.476 kg Assessment and Plan *Assessment and plan (1) Hyponatremia: Status: Acute Category: Medical Code(s): E87.1 - Hypo-osmolality and hyponatremia Plan Patient is confused and seem lethargic, monitor Na levels, hold antipsychotics for now. see same date H&P for further reecomemndations
[2024-09-29 12:24] LABS: Anion Gap 9.0 mEq/L (5-15); Carbon Dioxide 29 mmol/L (22.0-30.0)
--- NOTE | 2024-09-29 17:42 | PC.NURSE ---
pt is resting in bed. alert and oriented x4. pt has been sleeping t/o most of the shift. refused to totally participate with physical therapy this morning. purwick in place. voiding well. turns and repositions self in the bed. appetite has been fair. lung sounds clear. abdomen soft/distended with hypoactive bowel sounds. will continue to monitor.
[2024-09-29 18:01] LABS: Chloride 86 mmol/L (98-107); Potassium 5.0 mmoL/L (3.5-5.1); Sodium 118 mmol/L (136-145)
[2024-09-29 18:03] LABS: Blood Urea Nitrogen 18 mg/dl (7-17); Creatinine Clearance Estimated 42 mL/min (50-200); Creatinine,Serum 0.90 mg/dl (0.52-1.04); Estimated Glomerular Filt Rate 61 ml/min (>60); GFR (African American) 74 ML/MIN (>60)
[2024-09-29 18:04] LABS: Anion Gap 11.0 mEq/L (5-15); Calcium 8.7 mg/dl (8.4-10.2); Carbon Dioxide 26 mmol/L (22.0-30.0); Glucose 89 mg/dl (74-100)
[2024-09-29] MEDS: ACETAMINOPHEN 325MG TAB 650 MG PO (18:28)
--- NOTE | 2024-09-29 21:00 | PC.NURSE ---
patient up to chair with pull tab alarm
[2024-09-29] MEDS: PANTOPRAZOLE 40MG TABLET 40 MG PO (21:09)
[2024-09-29] MEDS: NICOTINE 21MG/24HR PATCH 21 MG TD (21:12)
[2024-09-29 23:47] LABS: Chloride 88 mmol/L (98-107); Sodium 120 mmol/L (136-145)
[2024-09-29 23:48] LABS: Potassium 5.1 mmoL/L (3.5-5.1)
[2024-09-29 23:51] LABS: Anion Gap 9.1 mEq/L (5-15); Blood Urea Nitrogen 17 mg/dl (7-17); Calcium 8.7 mg/dl (8.4-10.2); Carbon Dioxide 28 mmol/L (22.0-30.0); Creatinine Clearance Estimated 42 mL/min (50-200); Creatinine,Serum 0.90 mg/dl (0.52-1.04); Estimated Glomerular Filt Rate 61 ml/min (>60); GFR (African American) 74 ML/MIN (>60); Glucose 88 mg/dl (74-100)
[2024-09-30] VITALS: BP 156/75; PULSE 60; PULSE 62; RESP 18; TEMP 36.8; O2SAT 97
[2024-09-30 04:00] VITALS: BP 126/62; PULSE 70; PULSE 76; RESP 20; TEMP 36.6; O2SAT 96; BMI 25.0
[2024-09-30] MEDS: FLUTICASONE/UMECLIDIN/VILANTER 100/62.5/25MCG INHALER 1 PUFF IH (06:05)
[2024-09-30] MEDS: LEVOTHYROXINE 50MCG (0.05MG) TAB 50 MCG PO (06:20)
[2024-09-30 06:28] LABS: Hematocrit 30.5 % (37.0-47.0); Hemoglobin 9.6 g/dL (12.2-16.2); Immature Granulocytes % 0.2 %; Mean Corpuscular HGB Conc 31.5 g/dL (31.8-35.4); Mean Corpuscular Hemoglobin 22.9 pg (27.0-31.2); Mean Corpuscular Volume 72.6 fl (81-99); Nucleated Red Blood Cells % 0 %; Platelet Count 425 K/mm3 (142-424); Red Blood Count 4.20 M/mm3 (4.20-5.40); Red Cell Distribution Width-SD 44.1 fL; White Blood Count 5.2 K/mm3 (4.8-10.8)
[2024-09-30 06:40] LABS: Alanine Aminotransferase 16 U/L (12-78); Albumin Level 3.7 g/dl (3.5-5.0); Albumin/Globulin Ratio 1.4 (1.1-1.8); Alkaline Phosphatase 60 U/L (38-126); Anion Gap 12.3 mEq/L (5-15); Aspartate Amino Transferase 29 U/L (14-36); Bilirubin,Total 0.2 mg/dl (0.2-1.3); Blood Urea Nitrogen 15 mg/dl (7-17); Calcium 9.4 mg/dl (8.4-10.2); Carbon Dioxide 24 mmol/L (22.0-30.0); Chloride 94 mmol/L (98-107); Creatinine Clearance Estimated 44 mL/min (50-200); Creatinine,Serum 1.00 mg/dl (0.52-1.04); Estimated Glomerular Filt Rate 54 ml/min (>60); GFR (African American) 66 ML/MIN (>60); Globulin 2.7 g/dL (1.3-3.2); Glucose 117 mg/dl (74-100); Potassium 4.3 mmoL/L (3.5-5.1); Sodium 126 mmol/L (136-145); Total Protein,Serum 6.4 g/dl (6.3-8.2)
[2024-09-30 07:54] LABS: Magnesium 2.6 mg/dl (1.6-2.3)
[2024-09-30 08:00] VITALS: BP 139/60; PULSE 80; PULSE 86; RESP 18; TEMP 36.3; O2SAT 97
--- NOTE | 2024-09-30 09:28 | SW/DCPLANNER ---
Spoke with patient once she is medically stable and ready for discharge if she would be interested in home health services. Patient stated that she is not interested in it at the time due to her having a sitter come into her home and helping her up. Eduardo Melton
[2024-09-30] MEDS: SODIUM CHLORIDE 1,000MG TABLET 1000 MG PO ×2 (09:45→20:12)
[2024-09-30] MEDS: ACETAMINOPHEN 325MG TAB 650 MG PO ×2 (09:46→20:16)
--- NOTE | 2024-09-30 11:21 | P.PN_ITS ---
Subjective *Date: 09/30/24 *Time: 11:21 Interval history: seen at bedside, no fevers overnight, denied CP, SOB, no complains today Exam Data for Last 24 hours Vital signs and Labs for Last 24 Hours: Temp Pulse Resp BP Pulse Ox O2 Del Method 97.4 F L 86 18 139/60 97 Room Air 09/30/24 08:00 09/30/24 08:00 09/30/24 08:00 09/30/24 08:00 09/30/24 08:00 09/30/24 09:30 Laboratory Results - last 24 hr 09/29/24 11:00: Carbon Dioxide 29, Anion Gap 9.0 09/29/24 17:00: Sodium 118 L, Potassium 5.0 D, Chloride 86 L, Carbon Dioxide 26, Anion Gap 11.0, BUN 18 H, Creatinine 0.90, Estimated Creat Clear 42, Estimated GFR 61, Est GFR ( Amer) 74, Glucose 89, Calcium 8.7 09/29/24 23:31: Sodium 120 L, Potassium 5.1, Chloride 88 L, Carbon Dioxide 28, Anion Gap 9.1, BUN 17, Creatinine 0.90, Estimated Creat Clear 42, Estimated GFR 61, Est GFR ( Amer) 74, Glucose 88, Calcium 8.7 09/30/24 06:07: WBC 5.2, RBC 4.20, Hgb 9.6 L, Hct 30.5 L, MCV 72.6 L, MCH 22.9 L , MCHC 31.5 L, RDW 17.0, Plt Count 425 H, MPV 9.2, Neut % (Auto) 68.4, Lymph % (Auto) 18.1, Assumption % (Auto) 10.4 H, Eos % (Auto) 2.5, Baso % (Auto) 0.4, Neut # (Auto) 3.6, Lymph # (Auto) 0.9, Assumption # (Auto) 0.5, Eos # (Auto) 0.1, Baso # (Auto) 0.0, Sodium 126 L, Potassium 4.3, Chloride 94 L, Carbon Dioxide 24, Anion Gap 12.3, BUN 15, Creatinine 1.00, Estimated Creat Clear 44, Estimated GFR 54 L, Est GFR ( Amer) 66, Glucose 117 H D, Calcium 9.4, Magnesium 2.6 H D, Total Bilirubin 0.2, AST 29 D, ALT 16 D, Alkaline Phosphatase 60, Total Protein 6.4, Albumin 3.7, Globulin 2.7, Albumin/Globulin Ratio 1.4 I & O for Last 24 hours: Intake & Output 09/27/24 09/28/24 09/29/24 09/30/24 23:59 23:59 23:59 23:59 Intake Total 1110 / 1590 880 / 880 Output Total 650 / 650 50 / 50 Balance 460 / 940 830 / 830 Weight 54.476 kg 56.2 kg Constitutional Constitutional: no acute distress *Routine HEENT Exam Head: Present normocephalic Eye: Present EOMI and PERRL ENT: Present mucous membranes moist *Routine Neck Exam Neck: Present supple; Absent lymphadenopathy *Routine Respiratory Exam Respiratory: Present CTA bilaterally *Routine Cardiovascular Exam Cardiovascular: Present RRR *Routine Abdominal Exam Abdominal: Present soft and normoactive bowel sounds; Absent tenderness *Routine Extremities Exam Extremities: Absent cyanosis, clubbing or edema *Routine Skin Exam Skin: Present warm; Absent rash *Routine Neurological Exam Neurological: Present alert and oriented X3 Assessment and Plan *Assessment and plan (1) Chest pain at rest: Status: Acute Category: Medical Code(s): R07.9 - Chest pain, unspecified (2) Hyponatremia: Status: Acute Category: Medical Code(s): E87.1 - Hypo-osmolality and hyponatremia (3) Hypothyroidism: Status: Acute Category: Medical Code(s): E03.9 - Hypothyroidism, unspecified (4) Schizophrenia: Status: Acute Qualifiers: Schizophrenia type: unspecified Qualified Code(s): F20.9 - Schizophrenia, unspecified Category: Medical Code(s): F20.9 - Schizophrenia, unspecified (5) Tobacco use disorder: Status: Acute Category: Medical Code(s): F17.200 - Nicotine dependence, unspecified, uncomplicated (6) Thoracic compression fracture: Status: Chronic Category: Medical Code(s): S22.000A - Wedge compression fracture of unspecified thoracic vertebra, initial encounter for closed fracture (7) Wheelchair dependent: Status: Chronic Category: Medical Code(s): Z99.3 - Dependence on wheelchair Plan Ms. Trejo is a 74-year-old female who complains of chest pain over the past day. States is on the right side with some pain into her arm. Denies worsening or improvement with exertion. Has had multiple surgeries on her back. Hemodynamically stable. Right-sided chest pain Chronic T-spine wedge compression fracture resolved Hyponatremia Hypokalemia Hypomagnesemia monitor and replace monitor Na level Hypothyroid: TSH pending. Continue levothyroxine 50 mcg daily Schizophrenia: Appears stable with no behavioral disturbance at this time. Did level pending. Caution with resuming meds given hyponatremia. Tobacco use disorder COPD - Nicotine patch while admitted. Continue Trelegy inhaler. Albuterol as needed every 6 hours Lovenox subcu daily Regular diet DNR likely dc tomorrow if Na continues to improve
[2024-09-30 12:00] VITALS: BP 139/69; PULSE 70; PULSE 78; RESP 18; TEMP 36.4; O2SAT 98
[2024-09-30 16:00] VITALS: BP 144/79; PULSE 80; PULSE 86; RESP 20; TEMP 37; O2SAT 98
--- NOTE | 2024-09-30 18:36 | PC.NURSE ---
Pt has been alert and oriented x4. She remains on RA and tolerating well. Appetite has been ok. She been NSR on telemetry. She was up to the chair this afternoon and tolerated well. She remains on seizure precautions. She currently has no questions or concerns at this time. Call light is within reach.
[2024-09-30 20:00] VITALS: BP 147/76; PULSE 73; PULSE 80; RESP 16; TEMP 37; O2SAT 98
[2024-09-30] MEDS: PANTOPRAZOLE 40MG TABLET 40 MG PO (20:12)
[2024-09-30] MEDS: NICOTINE 21MG/24HR PATCH 21 MG TD (20:16)
[2024-10-01] VITALS: BP 152/68; PULSE 62; PULSE 70; RESP 16; TEMP 36.7; O2SAT 95
[2024-10-01 04:00] VITALS: BP 144/71; PULSE 70; PULSE 76; RESP 16; TEMP 36.3; O2SAT 98; BMI 25.4
[2024-10-01 06:22] LABS: Hematocrit 27.1 % (37.0-47.0); Hemoglobin 8.8 g/dL (12.2-16.2); Immature Granulocytes % 0.3 %; Mean Corpuscular HGB Conc 32.5 g/dL (31.8-35.4); Mean Corpuscular Hemoglobin 23.5 pg (27.0-31.2); Mean Corpuscular Volume 72.5 fl (81-99); Nucleated Red Blood Cells % 0 %; Platelet Count 408 K/mm3 (142-424); Red Blood Count 3.74 M/mm3 (4.20-5.40); Red Cell Distribution Width-SD 45.0 fL; White Blood Count 3.4 K/mm3 (4.8-10.8)
[2024-10-01] MEDS: LEVOTHYROXINE 50MCG (0.05MG) TAB 50 MCG PO (06:22)
[2024-10-01] MEDS: FLUTICASONE/UMECLIDIN/VILANTER 100/62.5/25MCG INHALER 1 PUFF IH (06:27)
[2024-10-01 06:32] LABS: Anion Gap 7.2 mEq/L (5-15); Blood Urea Nitrogen 10 mg/dl (7-17); Calcium 9.6 mg/dl (8.4-10.2); Carbon Dioxide 24 mmol/L (22.0-30.0); Chloride 99 mmol/L (98-107); Creatinine Clearance Estimated 45 mL/min (50-200); Creatinine,Serum 0.90 mg/dl (0.52-1.04); Estimated Glomerular Filt Rate 61 ml/min (>60); GFR (African American) 74 ML/MIN (>60); Glucose 91 mg/dl (74-100); Magnesium 1.9 mg/dl (1.6-2.3); Potassium 4.2 mmoL/L (3.5-5.1); Sodium 126 mmol/L (136-145)
[2024-10-01 07:54] VITALS: BP 151/74; PULSE 87; RESP 16; TEMP 36.7; O2SAT 96
[2024-10-01] MEDS: SODIUM CHLORIDE 1,000MG TABLET 1000 MG PO (08:44)
[2024-10-01] MEDS: ACETAMINOPHEN 325MG TAB 650 MG PO (08:50)
[2024-10-01 12:00] VITALS: BP 136/64; PULSE 66; RESP 16; TEMP 36.6; O2SAT 94
--- NOTE | 2024-10-01 13:45 | PC.NURSE ---
home meds returned to patient
== END 2024-10-01 14:08 | disposition home or self-care (01) | DRG 641 ==
LOC: ER 05:57 → 2ND 06:01
PROVIDERS: Internal Medicine Adolescent Medicine; Admitting Provider Internal Medicine; Emergency Provider Emergency Medicine; Visit Provider Internal Medicine
DX: E87.1 Hypo-osmolality and hyponatremia (principal); M48.54XA Collapsed vertebra, not elsewhere classified, thoracic region, initial encounter for fracture; R07.89 Other chest pain; E03.9 Hypothyroidism, unspecified; F20.9 Schizophrenia, unspecified; F17.200 Nicotine dependence, unspecified, uncomplicated; E87.6 Hypokalemia; E83.42 Hypomagnesemia; J44.9 Chronic obstructive pulmonary disease, unspecified; Z66 Do not resuscitate; I50.9 Heart failure, unspecified; I25.10 Atherosclerotic heart disease of native coronary artery without angina pectoris; Z79.890 Hormone replacement therapy; Z79.899 Other long term (current) drug therapy; Z99.3 Dependence on wheelchair; Z88.6 Allergy status to analgesic agent; Z88.0 Allergy status to penicillin; I25.2 Old myocardial infarction
CPT/HCPCS: 36415; 71045; 71250; 80048; 80053; 80061; 80074; 80165; 83690; 83735; 83880; 84443; 84484; 84540; 85025; 85378; 87389; 93005; 94640; 97110; 97163; 97166; 97530; J1650; J1938; J3475

== ENCOUNTER 2024-10-14 10:52 | Outpatient (CLI) | payer MEDICARE, MEDICAID, SELFPAY ==
[2024-10-14 19:02] LABS: Hematocrit 30.4 % (37.0-47.0); Hemoglobin 9.6 g/dL (12.2-16.2); Immature Granulocytes % 0.2 %; Mean Corpuscular HGB Conc 31.6 g/dL (31.8-35.4); Mean Corpuscular Hemoglobin 23.6 pg (27.0-31.2); Mean Corpuscular Volume 74.7 fl (81-99); Nucleated Red Blood Cells % 0 %; Platelet Count 493 K/mm3 (142-424); Red Blood Count 4.07 M/mm3 (4.20-5.40); Red Cell Distribution Width-SD 45.6 fL; White Blood Count 6.3 K/mm3 (4.8-10.8)
[2024-10-14 19:43] LABS: Alanine Aminotransferase 12 U/L (12-78); Albumin Level 4.1 g/dl (3.5-5.0); Albumin/Globulin Ratio 2.0 (1.1-1.8); Alkaline Phosphatase 67 U/L (38-126); Anion Gap 11.6 mEq/L (5-15); Aspartate Amino Transferase 23 U/L (14-36); Bilirubin,Total 0.3 mg/dl (0.2-1.3); Blood Urea Nitrogen 14 mg/dl (7-17); Calcium 9.8 mg/dl (8.4-10.2); Carbon Dioxide 27 mmol/L (22.0-30.0); Chloride 97 mmol/L (98-107); Creatinine,Serum 0.80 mg/dl (0.52-1.04); Estimated Glomerular Filt Rate 70 ml/min (>60); GFR (African American) 85 ML/MIN (>60); Globulin 2.1 g/dL (1.3-3.2); Glucose 90 mg/dl (74-100); Potassium 4.6 mmoL/L (3.5-5.1); Sodium 131 mmol/L (136-145); Total Protein,Serum 6.2 g/dl (6.3-8.2)
[2024-10-15 05:51] LABS: Iron 35 ug/dL (37-170)
[2024-10-15 06:01] LABS: Total Iron Binding Capacity 483 ug/dL (265-497)
--- OUTSIDE RECORDS SUMMARY | 2024-10-17 11:00 | XMS_ITS | Clinical Summary ---
Author Organization [facility] are Address [address] [place] [address] Phone Care Team Providers Care State'S Attorney Name Role Phone Liz Parks APRN Primary [...]
--- OUTSIDE RECORDS SUMMARY | 2024-10-17 11:01 | XMS_ITS | Encounter Summary ---
Author Organization [facility] Address [address] [place] [address] Care Team Providers Care State Assessed Properties Director Name Role Phone Provider, Generic External Data Unavailable Unavailable Sarah Beth Cardoso NP Unavailable [phone] Shila Olson RN Unavailable Unavailable Sarah Beth Cardoso NP Primary Care Provider [phone] Reason for Visit * Reason Comments Medications Refill Encounter Details Date Type Department Care Team (Late st Contact Info) Description 09/12/2022 Refill [facility] Physicians - Primary Care, [place] [address] [place] [phone] Sarah Beth Cardoso NP [address] [facility] [place] [address] Medications Refill Social History Tobacco Use Types [...] documented as of this encounter Care Teams State Assessed Properties Director Relationship Specialty Start Date End Date Sarah Beth Cardoso NP [address] [place] [address] PCP - General Nurse Practitioner, Family 09/06/21 08/04/23 Provider, Generic External Data 08/13/20 Sarah Beth Cardoso NP [address] [place] [address] Nurse Practitioner Nurse Practitioner, Family 08/17/20 Shila Olson, RN Registered Nurse 10/01/20 documented as of this encounter
--- OUTSIDE RECORDS SUMMARY | 2024-10-17 11:01 | XMS_ITS | Encounter Summary ---
Author Organization [facility] Address [address] [place] [address] Care Team Providers Care Accounting File Clerk Name Role Phone Provider, Generic External Data Unavailable Unavailable Sarah Beth Cardoso TEACHER [employer]UC[employer] Unavailable [phone] Shila Olson RN Unavailable Unavailable Sarah Beth Cardoso NP Primary Care Provider [phone] Reason for Visit * Reason Comments Medications Refill Encounter Details Date Type Department Care Team (Late st Contact Info) Description 10/23/2022 Refill [facility] Physicians - Primary Care, [place] [address], [place] [address] Sarah Beth Cardoso NP [address] [place] [address] Medications Refill Social History Tobacco Use Types [...] encounter Visit Diagnoses Diagnosis Schizophrenia, unspecified type (CMS/[facility]) documented in this encounter Additional Health Concerns Assessment Noted Time PHQ-9 Depression Total Score: 1 10/31/19 2:37 PM EDT documented as of this encounter Care Teams Accounting File Clerk Relationship Specialty Start Date End Date Sarah Beth Cardoso NP [address] [place] [address] PCP - General Nurse Practitioner, Family 09/06/21 08/04/23 Provider, Generic External Data 08/13/20 Sarah Beth Cardoso NP [address] [facility], [place] [id number] Nurse Practitioner Nurse Practitioner, Family 08/17/20 Shila Olson, RN Registered Nurse 10/01/20 documented as of this encounter
--- OUTSIDE RECORDS SUMMARY | 2024-10-17 11:01 | XMS_ITS | Encounter Summary ---
Author Organization [facility] Address [address] [place] [address] Care Team Providers Care Robotics Application Engineer Name Role Phone Provider, Generic External Data Unavailable Unavailable Sarah Beth Cardoso NP Unavailable [phone] Shila Olson RN Unavailable Unavailable Sarah Beth Cardoso NP Primary Care Provider [phone] Reason for Visit * Reason Comments Medications Refill Encounter Details Date Type Department Care Team (Late st Contact Info) Description 04/15/2022 Refill [facility] Physicians - Primary Care, [place] [address], [place] [address] Sarah Beth Cardoso NP [address] [place] [address] Medications Refill Social History Tobacco Use Types [...] encounter Visit Diagnoses Diagnosis Schizophrenia, unspecified type (CMS/[facility]) documented in this encounter Additional Health Concerns Assessment Noted Time PHQ-9 Depression Total Score: 1 10/31/19 22 2:37 PM EDT documented as of this encounter Care Teams Robotics Application Engineer Relationship Specialty Start Date End Date Sarah Beth Cardoso NP [address] [place] [address] PCP - General Nurse Practitioner, Family 09/06/21 08/04/23 Provider, Generic External Data 08/13/20 Sarah Beth Cardoso NP [address] [place] [address] Nurse Practitioner Nurse Practitioner, Family 08/17/20 Shila Olson, RN Registered Nurse 10/01/20 documented as of this encounter
--- OUTSIDE RECORDS SUMMARY | 2024-10-17 11:01 | XMS_ITS | Encounter Summary ---
Author Organization [facility] Address [address] [place] [address] Care Team Providers Care Basket Braider Name Role Phone Provider, Generic External Data Unavailable Unavailable Sarah Beth Cardoso NP Unavailable [phone] Shila Olson RN Unavailable Unavailable Sarah Beth Cardoso NP Primary Care Provider [phone] Reason for Visit * Reason Comments Medications Refill Encounter Details Date Type Department Care Team (Late st Contact Info) Description 12/18/2021 Refill [facility] Physicians - Primary Care, [place] [address] [place] [address] Suly Nichols, DRIVER EXAMINER [address] [place] [address] Medications Refill Social History Tobacco [...] documented as of this encounter Care Teams Basket Braider Relationship Specialty Start Date End Date Sarah Beth Cardoso NP [address] [place], [place] [id number] PCP - General Nurse Practitioner, Family 09/06/21 08/04/23 Provider, Generic External Data 08/13/20 Sarah Beth Cardoso, LIMOUSINE DRIVER [address] [facility] [place] [address] Nurse Practitioner Nurse Practitioner, Family 08/17/20 Shila Olson, RN Registered Nurse 10/01/20 documented as of this encounter
--- OUTSIDE RECORDS SUMMARY | 2024-10-17 11:01 | XMS_ITS | Encounter Summary ---
Author Organization [facility] Address [address] [place] [address] Care Team Providers Care Self Propelled Hot Mix Roller Operator Name Role Phone Provider, Generic External Data Unavailable Unavailable Sarah Beth Cardoso NP Unavailable [phone] Shila Olson RN Unavailable Unavailable Sarah Beth Cardoso NP Primary Care Provider [phone] Reason for Visit * Reason Comments Medications Refill Encounter Details Date Type Department Care Team (Late st Contact Info) Description 05/05/2023 Refill [facility] Physicians - Primary Care, [place] [address] [place] [phone] Sarah Beth Cardoso NP 1954 [facility] [place] [address] Medications Refill Social History Tobacco Use Types [...] encounter Visit Diagnoses Diagnosis Schizophrenia, unspecified type (CMS/HCC) documented in this encounter Additional Health Concerns Assessment Noted Time PHQ-9 Depression Total Score: 1 10/31/19 22 2:37 PM EDT documented as of this encounter Care Teams Self Propelled Hot Mix Roller Operator Relationship Specialty Start Date End Date Sarah Beth Cardoso NP [address] [facility] [address] [place], [place] [id number] PCP - General Nurse Practitioner, Family 09/06/21 08/04/23 Provider, Generic External Data 08/13/20 Sarah Beth Cardoso, MANAGER MATH [address] [facility] [place] [address] Nurse Practitioner Nurse Practitioner, Family 08/17/20 Shila Olson, RN Registered Nurse 10/01/20 documented as of this encounter
--- OUTSIDE RECORDS SUMMARY | 2024-10-17 11:01 | XMS_ITS | Encounter Summary ---
Author Organization [facility] Address [address] [place] [address] Care Team Providers Care Log Turner Name Role Phone Provider, Generic External Data Unavailable Unavailable Sarah Beth Cardoso NP Unavailable [phone] Shila Olson RN Unavailable Unavailable Sarah Beth Cardoso NP Primary Care Provider Reason for Visit * Reason Comments Medications Refill Encounter Details Date Type Department Care Team (Late st Contact Info) Description 03/21/2022 Refill [facility] Physicians - Primary Care, [place] [address] [place] [phone] Sarah Beth Cardoso NP [address] [place] [address] Medications Refill Social History Tobacco Use Types [...] documented as of this encounter Care Teams Log Turner Relationship Specialty Start Date End Date Sarah Beth Cardoso NP [address] [facility] [place] [address] PCP - General Nurse Practitioner, Family 09/06/21 08/04/23 Provider, Generic External Data 08/13/20 Sarah Beth Cardoso NP [address] [facility] [place] [address] Nurse Practitioner Nurse Practitioner, Family 08/17/20 Shila Olson, RN Registered Nurse 10/01/20 documented as of this encounter
--- OUTSIDE RECORDS SUMMARY | 2024-10-17 11:01 | XMS_ITS | Encounter Summary ---
Author Organization [facility] Address [address] [place] [address] Care Team Providers Care Hand Stemmer Name Role Phone Thanh Cheatham MD Primary Care Provider [phone] Salome Naylor NP Primary Care Provider Unavailab le Provider, Generic External Data Unavailable Unavailable Sarah Beth Cardoso NP Unavailable Shila Olson RN Unavailable Unavailable Sarah Beth Cardoso NP Primary Care Provider [phone] Reason for Visit * Reason Comments Medications Refill Encounter Details Date Type Department Care Team (Late st Contact Info) Description 10/05/2017 Refill [facility] Physicians - Primary Care [place] [address] [place], [place] [phone] [place] [address] Medications Refill Social History Tobacco [...] Notes * Telephone Encounter - Hui Perdomo, [facility] - 10/07/2017 9:48 AM EDT Last seen [...] with dysplasia Craig's esophagus Schizophrenia, unspecified type ([facility]) Osteoarthritis, unspecified osteoarthritis type, unspecified site Borderline hyperlipidemia Other and unspecified hyperlipidemia documented in this encounter Additional Health Concerns Assessment Noted Time PHQ-9 Depression Total Score: 1 05/30/19 17 2:02 PM EDT documented as of this encounter Care Teams Hand Stemmer Relationship Specialty Start Date End Date Thanh Cheatham MD PCP - General Family Medicine 04/28/12 06/29/18 Salome Naylor NP PCP - General Nurse Practitioner, Family 06/30/18 09/05/21 Sarah Beth Cardoso NP [address] [place] [address] PCP - General Nurse Practitioner, Family 09/06/21 08/04/23 Provider, Generic External Data 08/13/20 Sarah Beth Cardoso NP [address] [place] [address] Nurse Practitioner Nurse Practitioner, Family 08/17/20 Shila Olson, RN Registered Nurse 10/01/20 documented as of this encounter
--- OUTSIDE RECORDS SUMMARY | 2024-10-17 11:01 | XMS_ITS | Encounter Summary ---
Author Organization [facility] Address [address] [place] [address] Care Team Providers Care Manager Disaster Recovery Name Role Phone Provider, Generic External Data Unavailable Unavailable Sarah Beth Cardoso NP Unavailable [phone] Shila Olson RN Unavailable Unavailable Sarah Beth Cardoso NP Primary Care Provider Reason for Visit * Reason Comments Medications Refill Encounter Details Date Type Department Care Team (Late st Contact Info) Description 07/23/2022 Refill [facility] Physicians - Primary Care, [place] [address], [place] [address] Sarah Beth Cardoso NP [address] [place] [place] [address] Medications Refill Social History Tobacco Use Types [...] Vitamin D deficiency- Primary Schizophrenia, unspecified type ([facility]) Thyroid disease Unspecified disorder of thyroid Borderline hyperlipidemia Other and unspecified hyperlipidemia Osteoarthritis, unspecified osteoarthritis type, unspecified site Elevated serum creatinine Other nonspecific findings on examination of blood Thrombocytosis Essential thrombocythemia documented in this encounter Additional Health Concerns Assessment Noted Time PHQ-9 Depression Total Score: 1 10/31/19 2:37 PM EDT documented as of this encounter Care Teams Manager Disaster Recovery Relationship Specialty Start Date End Date Sarah Beth Cardoso NP [address] [facility], [place] [id number] PCP - General Nurse Practitioner, Family 09/06/21 08/04/23 Provider, Generic External Data 08/13/20 Sarah Beth Cardoso NP [address] [facility], [place] [id number] Nurse Practitioner Nurse Practitioner, Family 08/17/20 Shila Olson, RN Registered Nurse 10/01/20 documented as of this encounter
--- OUTSIDE RECORDS SUMMARY | 2024-10-17 11:01 | XMS_ITS | Encounter Summary ---
Author Organization [facility] Address [address] [place] [address] Care Team Providers Care Rehab Trainer Name Role Phone Provider, Generic External Data Unavailable Unavailable Sarah Beth Cardoso NP Unavailable [phone] Shila Olson RN Unavailable Unavailable Reason for Visit * Reason Comments Medications Refill Encounter Details Date Type Department Care Team (Late st Contact Info) Description 08/05/2023 Refill [facility] Physicians - Primary Care, [place] [address] [place] [address] Sarah Beth Cardoso NP [address] [facility] 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
--- OUTSIDE RECORDS SUMMARY | 2024-10-17 11:01 | XMS_ITS | Encounter Summary ---
Author Organization [facility] Address [address] [place] [address] Care Team Providers Care Digital Archivist Name Role Phone Salome Naylor NP Primary Care Provider Unavailab le Provider, Generic External Data Unavailable Unavailable Sarah Beth Cardoso NP Unavailable [phone] Shila Olson RN Unavailable Unavailable Sarah Beth Cardoso NP Primary Care Provider [phone] Reason for Visit * Reason Comments Medications Refill Encounter Details Date Type Department Care Team (Late st Contact Info) Description 09/10/2020 Refill [facility] Physicians - Primary Care, [place] [address] [place] [address] Salome Naylor NP Medications Refill [...] documented as of this encounter Care Teams Digital Archivist Relationship Specialty Start Date End Date Salome Naylor NP PCP - General Nurse Practitioner, Family 06/30/18 09/05/21 Sarah Beth Cardoso NP [address] [place] [place] [address] PCP - General Nurse Practitioner, Family 09/06/21 08/04/23 Provider, Generic External Data 08/13/20 Sarah Beth Cardoso NP [address] [place] [address] Nurse Practitioner Nurse Practitioner, Family 08/17/20 Shila Olson, RN Registered Nurse 10/01/20 documented as of this encounter
--- OUTSIDE RECORDS SUMMARY | 2024-10-17 11:01 | XMS_ITS | Encounter Summary ---
Author Organization [facility] Address [address] [place] [address] Care Team Providers Care Business Services Clerk Name Role Phone Provider, Generic External Data Unavailable Unavailable Sarah Beth Cardoso NP Unavailable [phone] Shila Olson RN Unavailable Unavailable Sarah Beth Cardoso NP Primary Care Provider [phone] Reason for Visit * Reason Comments Medications Refill Encounter Details Date Type Department Care Team (Late st Contact Info) Description 09/01/2022 Refill [facility] Physicians - Primary Care, [place] [address], [place] [address] Sarah Beth Cardoso NP [address] [place] [address] Medications Refill Social History Tobacco Use Types [...] Chronic obstructive pulmonary disease, unspecified COPD type ([facility]) documented in this encounter Additional Health Concerns Assessment Noted Time PHQ-9 Depression Total Score: 1 10/31/19 2:37 PM EDT documented as of this encounter Care Teams Business Services Clerk Relationship Specialty Start Date End Date Sarah Beth Cardoso NP [address] [place] [address] PCP - General Nurse Practitioner, Family 09/06/21 08/04/23 Provider, Generic External Data 08/13/20 Sarah Beth Cardoso NP [address] [facility] [address] Nurse Practitioner Nurse Practitioner, Family 08/17/20 Shila Olson, RN Registered Nurse 10/01/20 documented as of this encounter
--- OUTSIDE RECORDS SUMMARY | 2024-10-17 11:01 | XMS_ITS | Encounter Summary ---
Author Organization [facility] Address [address] [place] [address] Care Team Providers Care Switchman Supervisor Name Role Phone Thanh Cheatham MD Primary Care Provider [phone] Salome Naylor NP Primary Care Provider Unavailab le Provider, Generic External Data Unavailable Unavailable Sarah Beth Cardoso NP Unavailable [phone] Shila Olson RN Unavailable Unavailable Sarah Beth Cardoso NP Primary Care Provider [phone] Encounter Details Date Type Department Care Team (Late st Contact Info) Description 09/13/2014 Orders Only Laboratory [address], [place] [address] Pippa Gordon [address] [place] [phone] Encounter for long-term (current) use of [...] range of 30-160 mg/L. Test performed at [facility]/[address] [address] ANNA LENZ MD,PHD Serum 09/13/2014 8:11 PM EDT 09/16/2014 4:48 AM EDT us Referring Nonstaff MD HEMATOLOGY ORDERABLES Jaida l Result Performing Organization Address City/State/[facility] Co de Phone Number [facility] [address] documented in this encounter Visit Diagnoses Diagnosis Encounter for long-term (current) use of other medications- Primary documented in this encounter Care Teams Switchman Supervisor Relationship Specialty Start Date End Date Thanh Cheatham MD PCP - General Family Medicine 04/28/12 06/29/18 Salome Naylor NP PCP - General Nurse Practitioner, Family 06/30/18 09/05/21 Sarah Beth Cardoso NP [address] [place] [address] [place] [address] PCP - General Nurse Practitioner, Family 09/06/21 08/04/23 Provider, Generic External Data 08/13/20 Sarah Beth Cardoso NP [address] [place] [address] Nurse Practitioner Nurse Practitioner, Family 08/17/20 Shila Olson, RN Registered Nurse 10/01/20 documented as of this encounter
--- OUTSIDE RECORDS SUMMARY | 2024-10-17 11:01 | XMS_ITS | Encounter Summary ---
Author Organization [facility] Address [address] [place] [address] Care Team Providers Care Arc Welding Machine Operator Name Role Phone Salome Naylor NP Primary Care Provider Unavailab le Provider, Generic External Data Unavailable Unavailable Sarah Beth Cardoso NP Unavailable [phone] Shila Olson RN Unavailable Unavailable Sarah Beth Cardoso NP Primary Care Provider [phone] Reason for Visit * Reason Onset Date Comments Medications Refill Medications Refill 08/10/2020 Encounter Details Date Type Department Care Team (Late st Contact Info) Description 07/19/2020 Refill [facility] Physicians - Primary Care, [place] [address] [place] [address] Salome Naylor NP Medications Refill; [...] documented as of this encounter Care Teams Arc Welding Machine Operator Relationship Specialty Start Date End Date Salome Naylor NP PCP - General Nurse Practitioner, Family 06/30/18 09/05/21 Sarah Beth Cardoso NP [address] [facility], [place] [id number] PCP - General Nurse Practitioner, Family 09/06/21 08/04/23 Provider, Generic External Data 08/13/20 Sarah Beth Cardoso NP [address] [facility], [place] [id number] Nurse Practitioner Nurse Practitioner, Family 08/17/20 Shila Olson, RN Registered Nurse 10/01/20 documented as of this encounter
--- OUTSIDE RECORDS SUMMARY | 2024-10-17 11:01 | XMS_ITS | Encounter Summary ---
Author Organization [facility] Address [address] [place] [address] Care Team Providers Care Distillation Operator Name Role Phone Provider, Generic External Data Unavailable Unavailable Sarah Beth Cardoso CHEF MANAGER Unavailable Shila Olson RN Unavailable Unavailable Sarah Beth Cardoso NP Primary Care Provider [phone] Reason for Visit * Reason Comments Medications Refill Encounter Details Date Type Department Care Team (Late st Contact Info) Description 10/23/2022 Refill [facility] Physicians - Primary Care, [place] [address], [place] [address] Sheron Cox MD Medications Refill [...] documented as of this encounter Care Teams Distillation Operator Relationship Specialty Start Date End Date Sarah Beth Cardoso, CHEF MANAGER [address] [place], [place] [id number] PCP - General Nurse Practitioner, Family 09/06/21 08/04/23 Provider, Generic External Data 08/13/20 Sarah Beth Cardoso, CHEF MANAGER [address] [facility] [place] [address] Nurse Practitioner Nurse Practitioner, Family 08/17/20 Shila Olson, RN Registered Nurse 10/01/20 documented as of this encounter
--- OUTSIDE RECORDS SUMMARY | 2024-10-17 11:01 | XMS_ITS | Encounter Summary ---
Author Organization [facility] Address [address] [place] [address] Care Team Providers Care Pass Worker Name Role Phone Provider, Generic External Data Unavailable Unavailable Sarah Beth Cardoso NP Unavailable [phone] Shila Olson RN Unavailable Unavailable Sarah Beth Cardoso NP Primary Care Provider [phone] Reason for Visit * Reason Comments Medications Refill Encounter Details Date Type Department Care Team (Late st Contact Info) Description 10/26/2021 Refill [facility] Physicians - Primary Care, [place] [address] [place] [address] Salome Naylor NP Medications Refill [...] documented as of this encounter Care Teams Pass Worker Relationship Specialty Start Date End Date Sarah Beth Cardoso NP [address] [facility], [place] [id number] PCP - General Nurse Practitioner, Family 09/06/21 08/04/23 Provider, Generic External Data 08/13/20 Sarah Beth Cardoso NP [address] [facility], [place] [address] Nurse Practitioner Nurse Practitioner, Family 08/17/20 Shila Olson, RN Registered Nurse 10/01/20 documented as of this encounter
--- OUTSIDE RECORDS SUMMARY | 2024-10-17 11:01 | XMS_ITS | Encounter Summary ---
Author Organization [place] [address] Care Team Providers Care Tea Taster Name Role Phone Javier Shell MD Primary Care Provider [phone] Gage Mcconnell MD [facility] Thanh Gonzalez MD Primary Care Provider [phone] Sarah Beth Cardoso NP Primary Care Provider [phone] Encounter Details Date Type Department Care Team (Late st Contact Info) Description 12/05/2010 Orders Only [facility] Gastro CV [address] [facility] Building [address] [place] [phone] Abdi Clemons MD Social History Tobacco [...] nal Result [address] [place] [address] documented in this encounter Visit Diagnoses Not on filedocumented in this encounter Additional Health Concerns Infection Onset Date Last Indicated Resolved Time 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 05/19/2011 06/13/2015 8:15 AM E DT documented as of this encounter Care Teams Tea Taster Relationship Specialty Start Date End Date Javier Shell MD [facility] [place] [id number] PCP - General 09/02/10 08/01/12 Thanh Cheatham MD [address] [place] [address] [place] [id number] PCP - General Family Medicine 08/02/12 06/23/22 Sarah Beth Cardoso NP [address] [place], [place] [id number] PCP - General Nurse Practitioner-Family 06/24/22 Gage Mcconnell MD [facility] [place] [address] Psychiatry & Neurology-Psychiatry 10/28/11 documented as of this encounter
--- OUTSIDE RECORDS SUMMARY | 2024-10-17 11:01 | XMS_ITS | Encounter Summary ---
Author Organization [facility] Address [address] [place] [address] Care Team Providers Care Work Environment Safety Inspector Name Role Phone Provider, Generic External Data Unavailable Unavailable Sarah Beth Cardoso HEALTH ANALYTICS CONSULTANT Unavailable [phone] Shila Olson RN Unavailable Unavailable Sarah Beth Cardoso NP Primary Care Provider [phone] Reason for Visit * Reason Comments Medications Refill Encounter Details Date Type Department Care Team (Late st Contact Info) Description 12/25/2022 Refill [facility] Physicians - Primary Care, [place] [address] [place] [id number] Sarah Beth Cardoso NP [address] [facility] [place] [address] Medications Refill Social History Tobacco Use Types [...] encounter Visit Diagnoses Diagnosis Schizophrenia, unspecified type ([facility]) Age-related osteoporosis with current pathological fracture with routine healing, subsequent encounter documented in this encounter Additional Health Concerns Assessment Noted Time PHQ-9 Depression Total Score: 1 10/31/19 22 2:37 PM EDT documented as of this encounter Care Teams Work Environment Safety Inspector Relationship Specialty Start Date End Date Sarah Beth Cardoso NP [address] [place] [address] PCP - General Nurse Practitioner, Family 09/06/21 08/04/23 Provider, Generic External Data 08/13/20 Sarah Beth Cardoso NP [address] [facility] [address] Nurse Practitioner Nurse Practitioner, Family 08/17/20 Shila Olson, RN Registered Nurse 10/01/20 documented as of this encounter
--- OUTSIDE RECORDS SUMMARY | 2024-10-17 11:01 | XMS_ITS | Encounter Summary ---
Author Organization [facility] Address [address] [place] [address] Care Team Providers Care Traffic Attendant Name Role Phone Provider, Generic External Data Unavailable Unavailable Sarah Beth Cardoso NP Unavailable [phone] Shila Olson RN Unavailable Unavailable Sarah Beth Cardoso NP Primary Care Provider [phone] Reason for Visit * Reason Comments Medications Refill Encounter Details Date Type Department Care Team (Late st Contact Info) Description 12/10/2022 Refill [facility] Physicians - Primary Care, [place] [address] [place] [id number] Sarah Beth Cardoso NP [address] [facility] [place] [address] Medications Refill Social History Tobacco Use Types [...] documented as of this encounter Care Teams Traffic Attendant Relationship Specialty Start Date End Date Sarah Beth Cardoso NP [address] [facility] [place] [address] PCP - General Nurse Practitioner, Family 09/06/21 08/04/23 Provider, Generic External Data 08/13/20 Sarah Beth Cardoso NP [address] [place] [id number] Nurse Practitioner Nurse Practitioner, Family 08/17/20 Shila Olson, RN Registered Nurse 10/01/20 documented as of this encounter
--- OUTSIDE RECORDS SUMMARY | 2024-10-17 11:01 | XMS_ITS | Encounter Summary ---
Author Organization [facility] Address [address] [place] [address] Care Team Providers Care Wellness Director Name Role Phone Thanh Cheatham MD Primary Care Provider [phone] Salome Naylor NP Primary Care Provider Unavailab le Provider, Generic External Data Unavailable Unavailable Sarah Beth Cardoso NP Unavailable [phone] Shila Olson RN Unavailable Unavailable Sarah Beth Cardoso NP Primary Care Provider [phone] Reason for Visit * Reason Comments Medications Refill Encounter Details Date Type Department Care Team (Late st Contact Info) Description 11/18/2014 Refill [facility] Physicians - Primary Care, [place] [address] [place], [place] [id number] [place] [address] Medications Refill Social History Tobacco [...] on filedocumented in this encounter Care Teams Wellness Director Relationship Specialty Start Date End Date Thanh Cheatham MD PCP - General Family Medicine 04/28/12 06/29/18 Salome Naylor NP PCP - General Nurse Practitioner, Family 06/30/18 09/05/21 Sarah Beth Cardoso NP [address] [place] [address] PCP - General Nurse Practitioner, Family 09/06/21 08/04/23 Provider, Generic External Data 08/13/20 Sarah Beth Cardoso, ANIA [address] [place] [address] Nurse Practitioner Nurse Practitioner, Family 08/17/20 Shila Olson, RN Registered Nurse 10/01/20 documented as of this encounter
--- OUTSIDE RECORDS SUMMARY | 2024-10-17 11:01 | XMS_ITS | Encounter Summary ---
Author Organization [facility] Address [address] [place] [address] Care Team Providers Care Co Supervisor Grounds And Landscape Name Role Phone Provider, Generic External Data Unavailable Unavailable Sarah Beth Cardoso NP Unavailable [phone] Shila Olson RN Unavailable Unavailable Sarah Beth Cardoso NP Primary Care Provider [phone] Reason for Visit * Reason Comments Medications Refill Encounter Details Date Type Department Care Team (Late st Contact Info) Description 09/16/2022 Refill [facility] Physicians - Primary Care, [place] [address] [place] [address] Sarah Beth Cardoso NP [address] [facility] [place] [address] Medications Refill Social History Tobacco Use Types [...] documented as of this encounter Care Teams Co Supervisor Grounds And Landscape Relationship Specialty Start Date End Date Sarah Beth Cardoso NP [address] [place] [address] PCP - General Nurse Practitioner, Family 09/06/21 08/04/23 Provider, Generic External Data 08/13/20 Sarah Beth Cardoso NP [address] [place] [address] Nurse Practitioner Nurse Practitioner, Family 08/17/20 Shila Olson, RN Registered Nurse 10/01/20 documented as of this encounter
--- OUTSIDE RECORDS SUMMARY | 2024-10-17 11:01 | XMS_ITS | Clinical Summary ---
Author Organization [facility] Address [address] [place] [address] Care Team Providers Care Service Aide Name Role Phone Unavailable Primary Care Provider [...]
--- OUTSIDE RECORDS SUMMARY | 2024-10-17 11:01 | XMS_ITS | Encounter Summary ---
Author Organization [facility] Address [address] [place] [address] Care Team Providers Care Business Support Professional Name Role Phone Salome Naylor NP Primary Care Provider Unavailab le Provider, Generic External Data Unavailable Unavailable Sarah Beth Cardoso NP Unavailable [phone] Shila Olson RN Unavailable Unavailable Sarah Beth Cardoso NP Primary Care Provider [phone] Reason for Visit * Reason Comments Medications Refill Encounter Details Date Type Department Care Team (Late st Contact Info) Description 05/29/2020 Refill [facility] Physicians - Primary Care, [place] [address] [place] [address] Salome Naylor NP Medications Refill [...] as of this encounter Care Teams Business Support Professional Relationship Specialty Start Date End Date Salome Naylor NP PCP - General Nurse Practitioner, Family 06/30/18 09/05/21 Sarah Beth Cardoso, NANOTECHNOLOGY TECHNICIAN [address] [place] [address] PCP - General Nurse Practitioner, Family 09/06/21 08/04/23 Provider, Generic External Data 08/13/20 Sarah Beth Cardoso, ANIA [address] [place], [place] [id number] Nurse Practitioner Nurse Practitioner, Family 08/17/20 Shila Olson, RN Registered Nurse 10/01/20 documented as of this encounter
--- OUTSIDE RECORDS SUMMARY | 2024-10-17 11:01 | XMS_ITS | Clinical Summary ---
Author Organization [facility] Address [address] [place] [address] Care Team Providers Care Pigment Furnace Tender Name Role Phone Provider, Generic External Data Unavailable Unavailable Sarah Beth Cardoso DIPPER FISH Unavailable [phone] Shila Olson RN Unavailable Unavailable Allergies Active Allergy Reactions Criticality Noted Date Comments Cotrim Nausea And Vomiting 08/16/2015 Celecoxib Nausea And Vomiting 08/16/2015 Ibuprofen Swelling,Hives 11/23/2017 Penicillins Swelling,Rash Medium 05/27/2012 Medications calcium carbonate-vitamin D3 1,000 mg-20 mcg (800 unit) Tablet Ac tive fluticasone-umecli din-vilanter (Trelegy Ellipta) 100-62.5-25 mcg Disk with DeviceIndications: Chronic obstructive pulmonary disease, unspecified COPD type (CMS/HCC) Take 1 Puff by inhalation daily. 60 Each 5 3 Active albuterol (VENTOLIN/PROAIR/P ROVENTIL HFA) 90 mcg/actuation HFA Aerosol InhalerIndications :Chronic obstructive pulmonary disease, unspecified COPD type (CMS/HCC) TAKE 2 PUFFS BY INHALATION EVERY 6 [...] Sustained Release 24 hrIndications:Schi zophrenia, unspecified type (CMS/HCC) Take 1 Tablet (500 mg) by mouth [...] (PROLIXIN) 10 mg tabletIndications: Schizophrenia, unspecified type (CMS/HCC) Take 1 Tablet by mouth once daily. [...] disorder 08/18/2018 COPD (chronic obstructive pulmonary disease) Vitamin D deficiency 06/30/2018 Long-term use of [...] infected. Started on keflex, culture sent by [facility] ER. Chest pain 07/01/2018 Overview (12/08/2016): Replaced [...] Screening 11/01/2023 10/31/2022, 08/21/2017, 05/29/2016 COVID-19 Vaccine (2023- 5 season) 2023 04/24/2021, 07/31/2020, 07/03/2020 Advance [...] EDT Need for hepatitis C screening test [id number] SCAN AXIAL SKELETON Routine 02/02/2018 10:55 AM [...] 10/31/2022 14:38 was changed to Pregabalin by ideeli on 10/31/2022 21:06 Prescribed Drug 2 Pregabalin [facility] EX[facility] Creatinine, Ur 1.0(L) > or = 20.0 mg/dL [facility] Comment:Verified by repeat a nalysis. Specific [place], UA 1.000(L) > or = 1.003 [facility] Comment:Verified by repeat a nalysis. PH, Urine Drug Screen 6.7 4.5 - 9.0 [facility] Comment: Healthcare Providers needing interpretation assistance, please contact a [facility] Specialist at ([phone]). M-F 8am-6pm EST. Oxidant NEGATIVE <200 mcg/mL [facility] Comment: Test performed at [facility] [place] [address] [place] [address] SAYRA FRENCH M.D. Amphetamines,Screen NEGATIVE <500 ng/mL [...] [facility] NOTE SEE NOTE [facility] Comment: This drug testing is [...] analytical performance characteristics have been determined by [employer] It has not been cleared or approved by the FDA. This assay has been validated pursuant to the CLIA regulations and is used for clinical purposes. medMATCH(R) enables providers to identify if drug use is consistent or inconsistent with a corresponding prescribed medication(s) list. Healthcare Providers needing Interpretation assistance, please contact us at [phone] ( ) M-F, 8am to 10pm EST Test performed at [facility] [address] [place] [address] ANDREW DUNBAR No previous value was reported. A value of SEE NOTE was entered by IF on 11/05/2022 01:06 Fentanyl, Ur NEGATIVE <0.5 ng/mL [facility] EXTERNAL [facility] 6-Acetylmorphine Screen NEGATIVE <10 ng/mL [facility] medMatch Summary SEE NOTE [facility] Comment: Specimen Validity ABNORMAL Prescribed Prescribed Not Prescribed Consistent Inconsistent Inconsistent Lyrica(TM) Pregabalin Urine 10/31/2022 2:38 PM EDT 11/05/2022 1:06 AM EDT us Sarah Beth Cardoso NP URINE ORDERABLES Edited Resul t - Final [facility] [address] * (ABNORMAL) LIPID PROFILE (04/30/2022 2:43 [...] 11:29 PM EST us Sarah Beth Cardoso DIPPER FISH CHEMISTRY ORDERABLES Final Re sult Performing Organization Address [facility] de Phone Number [facility] [address] * HEPATITIS C AB WITH REFLEX TO HCV,RNA,QUANT PCR (10/22/2018 3:51 PM EDT) HCV Qual Interp Nonreactive Nonreactive [facility] Comment:IgG and IgM anti-HCV not detected. Signal/Cutoff 0.08 0.00 - 0.79 S/CO [facility] Serum 10/22/2018 3:51 PM EDT 10/22/2018 8:03 PM EDT us Salome Naylor DIPPER FISH HEMATOLOGY ORDERABLES Final Resu lt Performing Organization Address [facility] de Phone Number [facility] [address] * ORH-CIVV-VMA SCAN AXIAL SKELETON (02/02/2018 10:55 AM EST) 02/02/2018 10:[address] [facility] - 02/04/2018 3:58 PM EST Indication: The patient is presently being monitored while on treatment and requires a bone density assessment. Study was performed on [employer] 5. Bone Density: Region BMD T-score Z-score [...] on 02/03/2018 11:29:00 AM. Procedure Note Provider, [facility] - 02/04/2018 Indication: The patient is presently being monitored while on treatmentand requires a bone density assessment. Study was performed on [employer] 5. Bone Density: Region BMD T-score [...] on 02/03/2018 11:29:00 AM. us External Provider [facility] IMG RESULTS ONLY Final Result Performing Organization Address City/[facility]/ZIP Co de Phone Number [facility] * [...] - SEE COMMENT (12/06/2009) us Historical Provider [place] [facility] Final Result [facility] [address] [place] [address] from Last 3 Months or Most Recently Relevant to Health Maintenance Insurance [facility] MEDICARE Care Teams Pigment Furnace Tender Relationship Specialty Start Date End Date Provider, Generic External Data 08/13/20 Sarah Beth Cardoso, DIPPER FISH [address] [facility] [place] [place] [address] Nurse Practitioner Nurse Practitioner, Family 08/17/20 Shila Olson, RN Registered Nurse 10/01/20
--- OUTSIDE RECORDS SUMMARY | 2024-10-17 11:02 | XMS_ITS | Encounter Summary ---
Author Organization [facility] Address [address] [place] [address] Care Team Providers Care Manager Financial Name Role Phone Salome Naylor NP Primary Care Provider Unavailab le Provider, Generic External Data Unavailable Unavailable Sarah Beth Cardoso COMPOSING ROOM MACHINIST Unavailable [phone] Shila Olson RN Unavailable Unavailable Sarah Beth Cardoso NP Primary Care Provider [phone] Reason for Visit * Reason Comments Medications Refill Encounter Details Date Type Department Care Team (Late st Contact Info) Description 04/18/2021 Refill [facility] Physicians - Primary Care, [place] [address] [place] [address] Salome Naylor NP Medications Refill [...] (Ventolin HFA) 90 mcg/actuation HFA Aerosol Inhaler [[id number]] ?? Order Details Dose: 2 Puff Route: [...] obstructive pulmonary disease, unspecified COPD type (CMS/HCC) documented in this encounter Additional Health Concerns Assessment Noted Time PHQ-9 Depression Total Score: 1 09/29/19 21 3:02 PM EDT documented as of this encounter Care Teams Manager Financial Relationship Specialty Start Date End Date Salome Naylor NP PCP - General Nurse Practitioner, Family 06/30/18 09/05/21 Sarah Beth Cardoso NP [address] [place] [address] PCP - General Nurse Practitioner, Family 09/06/21 08/04/23 Provider, Generic External Data 08/13/20 Sarah Beth Cardoso NP [address] [facility] [place] [address] Nurse Practitioner Nurse Practitioner, Family 08/17/20 Shila Olson, RN Registered Nurse 10/01/20 documented as of this encounter
--- OUTSIDE RECORDS SUMMARY | 2024-10-17 11:02 | XMS_ITS | Encounter Summary ---
Author Organization [facility] Address [address] [place] [id number] Care Team Providers Care Enthone Solder Stripper Name Role Phone Salome Naylor NP Primary Care Provider Unavailab le Provider, Generic External Data Unavailable Unavailable Sarah Beth Cardoso NP Unavailable Shila Olson RN Unavailable Unavailable Sarah Beth Cardoso NP Primary Care Provider [phone] Reason for Visit * Reason Comments Medications Refill Encounter Details Date Type Department Care Team (Late st Contact Info) Description 04/06/2021 Refill [facility] Physicians - Primary Care, Ayde Hess [address] [place] [address] Sarah Beth Cardoso, BUZZLE BUFFER 1954 [facility] [place] [address] Medications Refill Social History Tobacco Use Types [...] documented as of this encounter Care Teams Enthone Solder Stripper Relationship Specialty Start Date End Date Salome Naylor NP PCP - General Nurse Practitioner, Family 06/30/18 09/05/21 Sarah Beth Cardoos NP [address] [place] [address] [place] [address] PCP - General Nurse Practitioner, Family 09/06/21 08/04/23 Provider, Generic External Data 08/13/20 Sarah Beth Cardoso NP [address] [place] [address] [place] [address] Nurse Practitioner Nurse Practitioner, Family 08/17/20 Shila Olson, RN Registered Nurse 10/01/20 documented as of this encounter
--- OUTSIDE RECORDS SUMMARY | 2024-10-17 11:02 | XMS_ITS | Encounter Summary ---
Author Organization [facility] Address [address] [place] [address] Care Team Providers Care Block Hacker Name Role Phone Salome Naylor NP Primary Care Provider Unavailab le Provider, Generic External Data Unavailable Unavailable Sarah Beth Cardoso NP Unavailable [phone] Shila Olson RN Unavailable Unavailable Sarah Beth Cardoso NP Primary Care Provider [phone] Reason for Visit * Reason Comments Medications Refill Encounter Details Date Type Department Care Team (Late st Contact Info) Description 08/12/2020 Refill [facility] Physicians - Primary Care, Ayde Hess [address] [place] [address] Salome Naylor NP Medications Refill [...] documented as of this encounter Care Teams Block Hacker Relationship Specialty Start Date End Date Saolme Naylor NP PCP - General Nurse Practitioner, Family 06/30/18 09/05/21 Sarah Beth Cardoso NP [address] [place] [address] PCP - General Nurse Practitioner, Family 09/06/21 08/04/23 Provider, Generic External Data 08/13/20 Sarah Beth Cardoso NP [address] [facility] [address] Nurse Practitioner Nurse Practitioner, Family 08/17/20 Shila Olson, RN Registered Nurse 10/01/20 documented as of this encounter
--- OUTSIDE RECORDS SUMMARY | 2024-10-17 11:02 | XMS_ITS | Clinical Summary ---
Author Organization [facility] Address [address] [place] [address] Phone Care Team Providers Care Welding Lead Burner Name Role Phone Gage Mcconnell MD, Kari NP Primary Care Provider Allergies Active Allergy Reactions Criticality Noted Date Comments Celecoxib Nausea And Vomiting 04/21/2014 Pt refuses. States it caused severe nausea and vomiting Ibuprofen Hives 05/24/2018 Penicillins Hives High Medications * This document contains information received from the source organization and may not represent a complete record from that organization. AMLODIPINE BESYLATE, BULK, MISC 2.5 mg by [facility].(Non-Drug; Combo Route) route daily. [...] t be different from the original. MIRELA [id number] 08/23/18 Problem Noted Date Diagnosed Date Spinal [...] TUNNEL RELEASE.; Surgeon: Gage Blair MD; Location: [facility]; Service: Hand Medical devices from this surgery are in the Medical Devices section. CARPAL TUNNEL RELEASE 07/13/2014 Hand/Left Surgeon: Gage Blair MD; Location: [facility]; Service: Hand Medical devices from this surgery [...] Date Smoking Tobacco: Every Day Cigarettes 1 59.2 Started: 08/20/1965 Smokeless Tobacco: Never Tobacco Cessation:Ready [...] this topic Medical Devices Implanted Type Area Band Sawyer Device Identifier Shelf Expiration Date Model / Serial / Lot Screw Cancellous 4.0mm X 35mm Full Threaded With 2.5mm Hexag - [id number] Implanted:Qty: 1 on 04/21/2014 by Theo Casey MD at [facility] Left: Knee SYNTHES-STRATEC: Boxfish 406.035 / / Screw Cancellous 4.0mm X 40mm Full Threaded With 2.5mm Hexag - [id number] Implanted:Qty: 1 on 04/21/2014 by Theo Casey MD at [facility] Left: Knee SYNTHES-STRATEC: Boxfish 406.040 / / Bone Cancellous 30cc Chips - [id number] Implanted:Qty: 1 on 07/13/2014 by Gage Blair MD at [facility] Left: Wrist SYNTHES-STRATEC: Boxfish 07/31/2017 [id number] / / [id number] Plate Radius Distal Volar Va Lcp 2.4mm 2 Column Left 6 Hole - [id number] Implanted:Qty: 1 on 07/13/2014 by Gage Blair MD at [facility] Left: Wrist SYNTHES-STRATEC: Boxfish [id number] / / Screw Locking 2.4mm X 12mm Self Tapping With Stardrive Recess Stainless Steel - [id number] Implanted:Qty: 2 on 07/13/2014 by Gage Blair MD at [facility] Left: Wrist SYNTHES-STRATEC: Boxfish 212.812 / / Screw Locking 1.8mm X 16mm Va Buttress Pin With T8 Stardrive Recess - [id number] Implanted:Qty: 1 on 07/13/2014 by Gage Blair MD at [facility] Left: Wrist SYNTHES-STRATEC: Boxfish [id number] / / Screw Locking 1.8mm X 18mm Va Buttress Pin With T8 Stardrive Recess - [id number] Implanted:Qty: 5 on 07/13/2014 by Gage Blair MD at [facility] Left: Wrist SYNTHES-STRATEC: SYNTHES [facility] / / Description:3 implanted and 2 implanted and explanted. Screw Locking 1.8mm X 20mm Va Buttress Pin With T8 Stardrive Recess - [id number] Implanted:Qty: 1 on 07/13/2014 by Gage Blair MD at [facility] Left: Wrist SYNTHES-STRATEC: SYNTHES [facility] 0 / / Procedures Procedure Name Priority [...] bone density assessment. Study was performed on Quinyx AB 5. Bone Density: Region BMD T-score Z-score [...] EST : No radiographic evidence of malignancy ([id number]) ~ RECOMMENDATION: Routine screening mammogram in 1 [...] ~ IMPRESSION: No radiographic evidence of malignancy ([id number]) ~ RECOMMENDATION: Routine screening mammogram in 1 [...] ORDERABLES Fi nal Result SEPGASTRO [address] [address] from Last 3 Months or Most Recently Relevant to Health Maintenance Insurance [id number] Member Subscriber Plan / Payer (Ef fective 2020-Present) Name:Loretta Trejowild Calles Relation to Subscriber:Self Name:Loretta Trejonnfiordaliza Calles Payer ID:Not on file Group ID:Not on file Type:Not on file Address: [address] MEDICARE ADVANTAGE HMO-POS * Guarantor: Destinee Trejo Account Type Relation to Patient Date of Phone Billing Address [place] Personal Family Self Advance Directives For more information, please contact: [phone] * Full Code (Latest Code Status on File) Date Activated Date Inactivated Comments 08/20/2018 11:21 AM 08/24/2018 9:07 PM * Full Code Date Activated Date Inactivated Comments 08/18/2018 5:30 PM 08/18/2018 9:01 PM * Full Code Date Activated Date Inactivated Comments 08/17/2018 10:22 PM 08/18/2018 5:30 PM * Full Code Date Activated Date Inactivated Comments 08/17/2018 7:29 PM 08/17/2018 10:01 PM Care Teams Welding Lead Burner Relationship Specialty Start Date End Date Sarah Beth Cardoso NP [address] [place] [address] PCP - General Nurse Practitioner-Family 06/24/22 Gage Mcconnell MD Psychiatry & Neurology-Psychiatry 10/28/11
== END 2024-10-14 23:59 | disposition home or self-care (01) ==
LOC: LAB.DROPOF 10-17 10:53
PROVIDERS: PCP Family Medicine; Visit Provider Family Medicine
DX: E87.1 Hypo-osmolality and hyponatremia (principal); E03.9 Hypothyroidism, unspecified; D64.9 Anemia, unspecified
CPT/HCPCS: 80053; 83540; 83550; 85025